=== PATIENT | female | born 2000 | race Caucasian/White ===

== ENCOUNTER 2022-07-26 13:19 | Emergency (ER) | payer SELFPAY ==
[2022-07-26 13:19] VITALS: BP 121/74; PULSE 103; RESP 16; TEMP 35.1; O2SAT 98; BMI 23.8
--- NOTE | 2022-07-26 14:05 | EDS_ITS ---
HPI History of Present Illness Chief Complaint: Headache Detail of Chief Complaint: Global headache Informant: patient Onset/Context/Timing Onset: Days (5 days ago) Context: Gradual Timing: Continuous and Waxes and wanes Quality -Headache: Positive for Dull and Throbbing Location: Global Current Severity: Moderate Maximum Severity: Severe Worsened by: Nothing specific Relieved by: Nothing Associated Symptoms/Injury Associated Symptoms: Positive for Nausea and - (She denies problems with coordination or balance. Point. She denies paresthesia, anesthesia or motor); Negative for Fever, Vomiting, Sore Throat, Sinus Pressure, Numbness, Tingling, Preceding Aura, Visual Changes, Blurred Vision, Photophobia or Visual Loss Injury - SHARP: Negative for Direct Trauma Narrative Narrative: Patient is a 22-year-old AB 0 female who is 21 weeks gestation. She presents with global headache. Area of most discomfort is occipital area. She denies double vision, blurred vision loss of vision. Denies rhinorrhea, congestion postnasal drainage. Denies sore throat. No trouble speech or swallowing. She denies photophobia sonophobia. She denies ringing in ears or decreased hearing. She does report nausea. She had no vomiting diarrhea. She had no neurologic symptoms. She has taken Tylenol with initial mild improveme nt. She does have a formal diagnosis of migraine headaches. She had no complications with first other than hyperemesis gravidarum in the first trimester. Prior similar symptoms: No Recent Illness/Hospitalization: No PFSH PFSH Medical History no medical history no medical history Allergy/AdvReac Type Severity Reaction Status Date / Time No Known Allergies Allergy Verified 07/26/22 13:19 Social History (Updated 07/26/22 @ 14:[address] Ruperto Connell MD) household members: children Smoking Status: Never smoker details: Presently no alcohol use substance use type: does not use ROS ROS ED Constitutional Constitutional ED: Denies chills, fever(s), subjective, sweats or weight loss Eyes Eyes: Denies blurry vision, change in vision or diplopia ENT ENT ED: Denies ear pain, rhinorrhea or sore throat Cardiovascular Cardiovascular: Denies chest pain, orthopnea, palpitations or racing heartbeat Respiratory/Chest Respiratory/Chest: Denies cough, dyspnea, dyspnea on exertion or orthopnea Gastrointestinal Gastrointestinal: Reports nausea; Denies abdominal pain, constipation, diarrhea, melena or vomiting Genitourinary Genitourinary ED: Denies dysuria, hematuria or urinary frequency Musculoskeletal Musculoskeletal: Denies arthralgias, back pain, myalgias or neck pain Integumentary Denies abscess, Abrasions or rash Neurologic Neurologic: Reports headache(s); Denies paresthesias or weakness Psychiatric Psychiatric: Denies anxiety or depression Endocrine Endocrinology: Denies polydipsia, polyphagia or polyuria Hematologic/Lymphatic Hematologic/Lymphatic: Denies easy bleeding or easy bruising EXAM Physical Exam Const Vital Signs: 07/26/22 13:19 Temperature 95.2 F L Temperature Source Temporal Pulse Rate 103 H Respiratory Rate 16 Blood Pressure 121/74 H Blood Pressure Mean 89 Pulse Ox 98 Oxygen Delivery Method Room Air Positive well nourished and well developed General Appearance ED: well developed and NAD; Negative for pallor HEENT Reports normocephalic, TM's clear and moist mucous membranes HEENT Narrative: Nares patent. There is no drainage. Uvula midline. No deviation of protrusion. No erythema or exudate the posterior pharynx. Negative for tenderness, temporal artery tenderness or vesicular rash Face and Sinus: Negative for sinus tenderness Tympanic Membrane ED: Yes TM's clear Eyes PERRL and EOMs intact bilaterally Eyes Narrative: There is no nystagmus. There is no APD. Cup-to-disc ratio is normal. There is no papilledema. General Eye ED: Negative for pale conjunctiva or scleral icterus Neck no lymphadenopathy, supple, no meningeal signs and no JVD Resp normal respiratory effort and clear to auscultation bilaterally Cardio regular rate, regular rhythm, S1 normal heart sound, S2 normal heart sound and no murmurs GI non-tender and non-distended GI Narrative: years approxi-1 fingerbreadth above the umbilicus. Auscultation: normoactive bowel sounds Palpation: soft Back/Spine no CVA tenderness Extremity normal to inspection, full ROM and normal capillary refill General Extremety ED: Negative for edema or tenderness General Extremity: Negative for edema Neuro oriented x3, CN's II-XII intact bilaterally and no sensory deficits noted Neuro Narrative: DTR 1+ bicep, brachialis, tricep, patella and ankle. There is no clonus Babinski sign noted. Selina Coma Scale: document GCS findings Spontaneous Obeys Commands Oriented 15 Sensorium / Orientation: awake and alert Coordination / Balance: rchpcd-is-arnn test normal Speech: speech normal Gait (Neuro): normal gait Motor Exam: strength 5/5 throughout Psych mental status grossly normal Skin General Skin Exam: elasticity normal and turgor normal; Negative for jaundice or pallor Lesions: no lesions Rashes: no rashes MDM MDM MDM Narrative Medical decision making narrative: Since patient does not have hyperreflexia pressure is normal there is no concern at this point for -induced hypertension or preeclampsia. Suspect this is a atypical possible vascular headache. She was medicated with Benadryl and Reglan. If there is no improvement since she is in her second trimester will treat with Toradol. Trolled Toradol is not indicated in the third trimester. I was informed by nursing staff at 1455 the patient would like to go home. Patient was reassessed at 1505. She feels markedly better. Plan is to discharge to home with appropriate home-going instructions and follow-up. Discharge Plan Triage Chief Complaint: Headache ED Provider: Ruperto Connell Dx/Rx/DC Orders Clinical Impression: Intractable migraine without aura and with status migrainosus, Second trimester Stand Alone Forms: ED Work / School Excuse Primary Care Provider: Care Physician,No Primary Referrals: Darlene Day [Non-Staff] - 1 Week Care Physician,No Primary [Primary Care Provider] - Disposition Disposition: Home, Self Care
[2022-07-26] MEDS: DiphenhydrAMINE 50 MG/ML Syringe 25 MG IV (14:17)
[2022-07-26] MEDS: Metoclopramide 10 MG/2 ML Vial IV (14:17)
[2022-07-26 15:16] VITALS: BP 95/62; PULSE 95; RESP 16; O2SAT 98
== END 2022-07-26 15:17 | disposition home or self-care (01) ==
PROVIDERS: Emergency Provider Emergency Medicine; Visit Provider Emergency Medicine
DX: O99.352 Diseases of the nervous system complicating pregnancy, second trimester (principal); G43.011 Migraine without aura, intractable, with status migrainosus; Z3A.21 21 weeks gestation of pregnancy
CPT/HCPCS: 96374; 96375; 99283; A4216

== ENCOUNTER 2022-12-02 09:45 | Inpatient (IN) | payer MEDICAID, SELFPAY ==
--- NOTE | 2022-11-28 13:55 | HP.PCM_ITS ---
History and Physical Date of Admission: 12/02/22 HPI: The patient is a 22 year old female presenting for pre-operative visit. She is scheduled for , for previous c/s on 12/09/22. Procedure discussed along with risks, benefits and complications. Other alternatives discussed for management. Consent form signed? Yes. ? ? PAST MEDICAL HISTORY PAST MEDICAL HISTORY Diagnosis Date ? Chlamydia ? ? ? PAST SURGICAL HISTORY PAST SURGICAL HISTORY Procedure Laterality Date ? SECTION HX ? 10/11/2019 ? ? ? CURRENT MEDICATIONS Current Outpatient Medications Medication Sig Dispense Refill ? iron sucrose (VENOFER) 200 mg iron/10 mL soln injection Inject 10 mL intravenously as directed for 3 doses. 10 mL 2 ? ferrous sulfate (IRON ORAL) Take by mouth. ? ? ? PNV no.95/ferrous fum/folic ac ( ORAL) Take by mouth. ? ? ? Current Facility-Administered Medications Medication Dose Route Frequency Provider Last Rate Last Admin ? NaCl (PF) 0.9% 10-20 mL injection 10-20 mL INTRAVENOUS PRN Deandre Guerrero MD ? ? ALLERGIES: Patient has no known allergies. ? PERSONAL HISTORY: SOCIAL HISTORY Social History ? Tobacco Use ? Smoking status: Never ? Smokeless tobacco: Never Vaping Use ? Vaping Use: Never used Substance Use Topics ? Alcohol use: Not Currently ? Drug use: Never ? FAMILY HISTORY: FAMILY HISTORY FAMILY HISTORY Adopted: Yes Problem Relation Age of Onset ? Autism Brother ? ? Autism Brother ? ? ? REVIEW OF SYMPTOMS: GENERAL: denies fevers or chills ENDOCRINOLOGY: has not been on steroids Cardiology : denies palpitations or chest pain Respiratory: denies SOB or cough Hematology: denies history of prolonged bleeding or easy bruising or VTE Allergy: Denies history of personal or family history of allergy to anesthesia ? PHYSICAL EXAMINATION: ? VITALS: Blood pressure 106/62, pulse 100, resp. rate 16, weight 153 lb (69.4 kg), last menstrual period 02/27/2022, SpO2 99 %. ? GENERAL: The patient is well nourished, well hydrated in no acute distress. , The patient is oriented to time, place, and person. NECK: Supple. No lynphadenopathy, normal thyroid, no thyromegaly. LUNGS: Clear to auscultation bilaterally. no wheezes, rhonchi or rales HEART: Regular rate and rhythm, Normal heart sounds, and No murmurs or gallops abd- soft, nontender, gravid ? IMPRESSION: Estimated Date of Delivery: 12/04/22 w/ previous c/s ? PLAN: The risks/benefits/alternatives and personal involved for the planned c- section were reviewed with the patient. Her questions were answered to her satisfaction and she desires to proceed. Consent was signed. I reviewed with her postop instructions and expectations. ? ? I have reviewed and updated past medical and surgical history, medications and allergies Assessment & Plan Assessment/Plan (1) 39 weeks gestation of : (2) Previous delivery affecting :
[2022-12-02] VITALS (13 sets, daily range): BP systolic 83–131; BP diastolic 46–60; PULSE 45–74; RESP 12–17; TEMP 35.6–36.4; O2SAT 63–100; BMI 28.0
[2022-12-02] MEDS: Lactated Ringers 1,000 ML 999 ML IV (10:20)
[2022-12-02 10:33] LABS: Absolute Lymphocyte Count 1.42 X10^3/uL (0.83-4.51); Absolute Neutrophil Count 5.2 X10^3/uL (2.0-7.7); Basophil# 0.05 X10^3/uL; Basophil% 0.7 % (0-1); Eosinophil# 0.06 X10^3/uL; Eosinophils% 0.8 % (0-5); Hematocrit 35.7 % (37-47); Hemoglobin 11.3 g/dL (12.0-15.0); Lymphocyte # 1.42 X10^3/ul (0.83-4.51); Mean Corp Hgb Conc 31.7 g/dL (32-36); Mean Corpuscular Hgb 27.6 pg (27.0-32.0); Mean Corpuscular Volume 87.3 fL (81-99); Monocyte# 0.33 X10^3/uL; Monocyte% 4.6 % (0-10); NRBC Flagged by Analyzer 0 % (0-5); Neutrophil # 5.19 X10^3/uL (2.7-7.7); Neutrophil % 73.1 % (47-70); Platelet Count 185 K/mm3 (150-450); RBC Distribution Width CV 16.5 % (11.6-14.6); RBC Distribution Width SD 51.8 fl (35.1-43.9); Red Blood Count 4.09 M/mm3 (4.2-5.4); White Blood Count 7.1 K/mm3 (4.4-11.0)
[2022-12-02] MEDS: Acetaminophen 500 MG Tablet 1000 MG PO ×3 (10:33→23:45)
[2022-12-02] MEDS: Lactated Ringers 1,000 ML 150 ML IV (11:21)
--- NOTE | 2022-12-02 14:27 | NURSING ---
OOS Pt has been made aware of schedule change in time for section x2. originally was told that it would be around 0288-7155 and then was moved to 1545. Dr Gan aware.
[2022-12-02] MEDS: Sodium Citrate/Citric Acid 30 ML UDC PO (15:40)
[2022-12-02] MEDS: Cefazolin 2 GM in 0.9% Normal Saline 100 ML IV (15:43)
--- NOTE | 2022-12-02 16:30 | OP.PCM_ITS ---
Assessment & Plan (1) delivery delivered: (2) Single live : Maternal Data Information Final JOSELYN: 12/04/22 Gestational age: 39 5/7 Details Operative Information Date of Procedure: 12/02/22 Pre-Operative Diagnosis: previous c/s Post-Operative Diagnosis: same Indications for : Repeat Elective Classification: Scheduled Procedure Type: low transverse supervisor rough end #1: [place] Type of Anesthesia: Spinal Anesthesiologist: Nicola Del Rio Special Medications: duramorph Antibiotic Given: Ancef 2 grams IV x1 Drain: Burger to straight drain Estimated Blood Loss: 800 Fluids Replaced: 900 Procedure Start Time: 16:01 Procedure Stop Time: 16:28 Time of Delivery: 16:03 Findings Description of Procedure: The patient was taken to the operating room. She was prepped and draped in the dorsal supine position with a leftward tilt. A Pfannenstiel skin incision was made through her previously existing suprapubic abdominal scar and was carried through to underlying layer fascia with the scalpel. The fascia was incised incised in the midline and extended laterally with the Hernandez scissors. The fascia was dissected off the rectus muscles with blunt and sharp dissection. The rectus muscles were in the midline and the peritoneum was entered bluntly. The peritoneal incision was stretched and the bladder blade was placed. There was a dense adhesion of the omentum to the left side of the uterus that was taken down with the Bovie. There was another adhesion on the right side of the omentum to the sidewall that was clamped with Maggi clamps, cut and suture-ligated. Pedicles were hemostatic. The uterine incision was made in a low transverse fashion with the scalpel and extended superiorly and inferiorly with blunt dissection. The amniotic membranes were ruptured bluntly and clear amniotic fluid returned. The 's head was brought to the incision in the flexed position and delivered without difficulty. The remainder of the infant was delivered with gentle traction and fundal pressure in the standard fashion. The mouth and nares were bulb suctioned. The cord was clamped and cut as the infant was stimulated. Cord clamping was delayed. The was handed off to the waiting nursing staff. The placenta was delivered with fundal massage and gentle traction in the s tandard fashion. The uterus was exteriorized and cleared of all clots and debris. The cervix was dilated with a ring forcep. The uterine incision was closed with #1 Vicryl in a running locked fashion. A second layer of the same suture was used in an imbricating fashion. 2 inmjut-wi-zsego sutures were needed 1 in the midline and one to the left side of the incision to control some bleeding from some sinuses. The incision was examined and was found to be hemostatic. The uterus was placed back into the peritoneal cavity and hemostasis was again confirmed. Some Biju was placed over the incision. The rectus muscles were examined and any bleeding was Bovie cauterized. The parietal peritoneum and rectus muscles were closed en bloc with an 0 Vicryl running suture. Some Biju was placed over the rectus muscle. The rectus fascia was examined and any bleeding was Bovie cauterized and the rectus fascia was closed with 1 Vicryl suture in a running standard fashion. The subcutaneous tissue was examining and any bleeding was Bovie cauterized. The subcutaneous tissue was reapproximated with 3-0 Vicryl suture. The skin was closed in a subcuticular fashion with Monocryl suture. I performed the entire procedure with assistance. All sponge, lap, and needle counts were correct. The patient was taken to her room for recovery in a stable condition. Presentation: Positive for Vertex Amniotic Membrane Rupture Type: Artificial Amniotic Fluid Description: Clear Placental Delivery Description: Expressed Placenta Disposition: [facility] Cord Vessel Description: 3 Vessels Cord Entanglement: None Nuchal Cord Compression: Without compression Infant A Gender: Male (Julio) (1 minute): 8 (5 minute): 9 Delayed Cord Clamping: Yes Complications Complications: none
[2022-12-02] MEDS: Oxytocin 15 Units/NS 250ml 15 UNITS/250 ML IV.SOLN 83 UNITS IV (16:47)
[2022-12-02] MEDS: Ketorolac 30 MG/ML Syringe IV ×2 (17:20→23:45)
[2022-12-02] MEDS: Lactated Ringers 1,000 ML 100 ML IV (20:05)
[2022-12-03] VITALS (7 sets, daily range): BP systolic 100–120; BP diastolic 53–71; PULSE 49–61; RESP 16–17; TEMP 35.9–36.7; O2SAT 97–100
[2022-12-03 04:46] LABS: Hematocrit 31.3 % (37-47); Hemoglobin 9.8 g/dL (12.0-15.0); Mean Corp Hgb Conc 31.3 g/dL (32-36); Mean Corpuscular Hgb 27.7 pg (27.0-32.0); Mean Corpuscular Volume 88.4 fL (81-99); Platelet Count 182 K/mm3 (150-450); RBC Distribution Width CV 16.5 % (11.6-14.6); RBC Distribution Width SD 53.4 fl (35.1-43.9); Red Blood Count 3.54 M/mm3 (4.2-5.4); White Blood Count 10.1 K/mm3 (4.4-11.0)
[2022-12-03] MEDS: 0.9% Saline Lock 10 ML Syringe IV ×2 (05:41→12:30)
[2022-12-03] MEDS: Acetaminophen 500 MG Tablet 1000 MG PO ×3 (05:41→17:27)
[2022-12-03] MEDS: Ketorolac 30 MG/ML Syringe IV ×2 (05:42→12:29)
--- NOTE | 2022-12-03 07:48 | PN.OBGYN_ITS ---
Subjective Subjective Pain well controlled. Average lochia. No nausea or vomiting. Tolerating regular diet. Ambulating without difficulty. No chest pain or shortness of breath. Objective Data Objective Data Vital Signs: Vital Signs Temp Pulse Resp BP Pulse Ox O2 Del Method 96.7 F L 54 L 16 108/57 L 98 Room Air 12/03/22 04:18 12/03/22 05:40 12/03/22 05:40 12/03/22 04:18 12/03/22 05:40 12/03/22 05:40 Oxygen Delivery Method Room Air Weight: 68.4 kg Body Mass Index (BMI) 28.0 Intake & Output: Intake and Output for Last 24 Hours 12/01/22 12/02/22 12/03/22 23:59 23:59 23:59 Intake Total 2067.5 / 2067.5 1000 / 1000 Output Total 1050 / 1050 1050 / 1050 Balance 1017.5 / 1017.5 -50 / -50 Lab / Micro Data Result Diagrams: 12/03/22 04:25 Labs: Laboratory Results - last 24 hr 12/02/22 10:20: WBC 7.1, RBC 4.09 L, Hgb 11.3 L, Hct 35.7 L, MCV 87.3, MCH 27.6, MCHC 31.7 L, RDW Std Deviation 51.8 H, RDW Coeff of Sarwat 16.5 H, Plt Count 185, MPV 12.0, Immature Gran % (Auto) 0.800, Neut % (Auto) 73.1 H, Lymph % (Auto) 20.0, [place] % (Auto) 4.6, Eos % (Auto) 0.8, Baso % (Auto) 0.7, Absolute Neuts ( auto) 5.2, Absolute Lymphs (auto) 1.42, Nucleated RBC % 0 12/02/22 10:20: Blood Type AB POSITIVE, Antibody Screen NEGATIVE 12/03/22 04:25: WBC 10.1, RBC 3.54 L, Hgb 9.8 L, Hct 31.3 L, MCV 88.4, MCH 27.7, MCHC 31.3 L, RDW Std Deviation 53.4 H, RDW Coeff of [place]wat 16.5 H, Plt Count 182, MPV 12.0 Physical Exam Const alert General Appearance: cooperative GI GI Narrative: soft, moderate distention, fundus firm, appropriately tender. Abdominal bandage clean dry and intact Assessment & Plan (1) delivery delivered: PLAN: 1 status post repeat section. Patient and are doing well. Patient desires discharge home later today. Mild acute blood loss anemia appropriate for blood loss after surgery. Repeat CBC at noon.
--- NOTE | 2022-12-03 07:50 | DS.PCM_ITS ---
Providers Date of Admission: 12/02/22 Primary Care Physician: No Primary Care Phys Reason For Visit: REPEAT C SECTION Diagnosis Discharge Diagnosis (1) delivery delivered: Status: Acute Code(s): O82 - Encounter for delivery without indication Plan: 1 status post repeat section. Patient and are doing well. Patient desires discharge home later today. Mild acute blood loss anemia appropriate for blood loss after surgery. Repeat CBC at noon. Medications at Discharge Home Medications ferrous sulfate 325 mg (65 mg iron) tablet (iron) 325 mg PO DAILY anemia 12/02/22 vits,calcium no.78-iron fumarate-folic acid 29 mg-1 mg tablet (Prenatabs FA) 1 tab PO DAILY 12/02/22 ibuprofen 600 mg tablet 600 mg PO Q6H PRN Pain 30 days #60 TABLETS 12/03/22 oxycodone 5 mg tablet 5 mg PO Q6H PRN PRN severe pain 5 days #6 TABLETS 12/03/22 Hospital Course Operations - (Repeat section) Summary of Care Provided Hospital Course: 22-year-old female admitted at 39-5/7 weeks for repeat section. This was performed without difficulty. By post operative day #1 she was ambulating, urinating tolerating regular diet and desired discharge home with routine instructions and prescriptions. Weight / BMI Weight Weight: 68.4 kg Body Mass Index (BMI) 28.0 ABG / Lab / Microbiology Data Result Diagrams: 12/03/22 04:25 Laboratory: Laboratory Results - last 24 hr 12/02/22 10:20: WBC 7.1, RBC 4.09 L, Hgb 11.3 L, Hct 35.7 L, MCV 87.3, MCH 27.6, MCHC 31.7 L, RDW Std Deviation 51.8 H, RDW Coeff of [place]wat 16.5 H, Plt Count 185, MPV 12.0, Immature Gran % (Auto) 0.800, Neut % (Auto) 73.1 H, Lymph % (Auto) 20.0, [place] % (Auto) 4.6, Eos % (Auto) 0.8, Baso % (Auto) 0.7, Absolute Neuts (auto) 5.2, Absolute Lymphs (auto) 1.42, Nucleated RBC % 0 12/02/22 10:20: Blood Type AB POSITIVE, Antibody Screen NEGATIVE 12/03/22 04:25: WBC 10.1, RBC 3.54 L, Hgb 9.8 L, Hct 31.3 L, MCV 88.4, MCH 27.7, MCHC 31.3 L, RDW Std Deviation 53.4 H, RDW Coeff of [place]wat 16.5 H, Plt Count 182, MPV 12.0 Meaningful Use Info Meaningful Use Diagnoses (Choose all that apply): None applicable Discharge Plan Admission Admit Date/Time: 12/02/22 09:45 Primary Reason for Your Visit: delivery Attending Provider: Cyn Gan Primary Care Provider: Sharmin PhysicianYumiko Primary Discharge Orders/Prescriptions Prescriptions: New ibuprofen [ibuprofen] 600 MG tablet 600 mg PO Q6H PRN (Reason: Pain) 30 Days Qty: 60 1RF oxycodone 5 MG tablet 5 mg PO Q6H PRN PRN (Reason: severe pain) 5 Days Qty: 6 0RF Continued ferrous sulfate [iron] 325 mg (65 mg iron) Tablet 325 mg PO DAILY Prenatabs FA 29-1 mg Tablet 1 tab PO DAILY Referrals / Follow Up: Care Physician,No Primary [Primary Care Provider] - Disposition Disposition (needs filled in before D/C Order can be placed): Home, Self Care
[2022-12-03] MEDS: Senna/Docusate Sodium 1 Tablet PO (12:29)
[2022-12-03] MEDS: Ibuprofen 600 MG Tablet PO (17:27)
[2022-12-03] MEDS: FLU VACC QS2022-23(6MOS UP)/PF 60 MCG/0.5 ML SYRINGE IM (17:46)
[2022-12-03 18:48] LABS: Hematocrit 31.5 % (37-47); Hemoglobin 10.1 g/dL (12.0-15.0); Mean Corp Hgb Conc 32.1 g/dL (32-36); Mean Corpuscular Hgb 28.4 pg (27.0-32.0); Mean Corpuscular Volume 88.5 fL (81-99); Mean Platelet Vol. 12.6 fl (6.2-12.0); Platelet Count 180 K/mm3 (150-450); RBC Distribution Width CV 16.9 % (11.6-14.6); RBC Distribution Width SD 54.3 fl (35.1-43.9); Red Blood Count 3.56 M/mm3 (4.2-5.4); White Blood Count 10.5 K/mm3 (4.4-11.0)
== END 2022-12-03 19:00 | disposition home or self-care (01) | DRG 540 ==
PROVIDERS: Admitting Provider Obstetrics & Gynecology; Visit Provider Obstetrics & Gynecology
PROC: 10D00Z1 Extraction of Products of Conception, Low, Open Approach (ICD-10-PCS; CPT 59514; principal; 2022-12-02 11:45)
DX: O34.211 Maternal care for low transverse scar from previous cesarean delivery (principal); D62 Acute posthemorrhagic anemia; Z37.0 Single live birth; O90.81 Anemia of the puerperium; Z3A.39 39 weeks gestation of pregnancy; Z23 Encounter for immunization
CPT/HCPCS: 59050; 85025; 85027; 86850; 86900; 86901; 99221; J7120; 90686; A4216; G0378

== ENCOUNTER 2024-08-23 09:43 | Inpatient (IN) | payer MEDICAID, SELFPAY ==
[2024-08-23] VITALS (16 sets, daily range): BP systolic 95–120; BP diastolic 61–80; PULSE 63–94; RESP 14–18; TEMP 36.1–36.6; O2SAT 97–100; BMI 31.4
--- NOTE | 2024-08-23 | FALS_PTH ---
PATHOLOGY RESULTS PATIENT: LISSA SAUNDERS LOC: [facility] U#:[id number] AGE/SX: 24/F ROOM: WP006 RE08/23/[address]: Dr. Deandre Guerrero MD : 2000 BED: 1 DIS: 08/24/2024 SPEC #: [id number] RECD: 08/24/24 10:35 STATUS: ALEX KARIE #: [id number] DAVID: 08/23/24 00:[address]: Deandre Guerrero DEPT: SURGICAL PATHOLOGY RECD BY: Lydia Huynh ENTERED: 08/24/24 10:36 SP TYPE: FALL TUBES OT DR: No Primary Care Phys Tissues: Fallopian tube Procedures: Surgery Specimen Level II HEADER OPERATION: Tubal ligation PRE-OP DIAGNOSIS: Sterilization TISSUE SUBMITTED: Bilateral fallopian tubes - stitch on right MICROSCOPIC DIAGNOSIS Bilateral fallopian tubes, salpingectomy: Bilateral fallopian tubes, no pathologic diagnosis. SJ: 08/25/2024 MICROSCOPIC DESCRIPTION Slides are reviewed. GROSS DESCRIPTION Received in fixative is one container labeled with the patient's name and designated bilateral fallopian tubes- stitch on right. The specimen consists of bilateral fallopian tubes. Right fallopian tube measures 3.5cm in length and 0.7cm in diameter and left fallopian tube measures 6.0 cm in length and 1.0 cm in diameter. Fimbrial end is noted only on the left fallopian tube. Right fallopian tube does not show any fimbrial end. Sections reveal unremarkable cut surfaces. Shank Stitcher sections are submitted in two cassettes. 1- right fallopian tube, 2- left fallopian tube/ SJ: 08/24/2024 TC:4 CPT: 66192 x2
[2024-08-23] MEDS: Acetaminophen 500 MG Tablet 1000 MG PO ×3 (10:13→21:33)
[2024-08-23 10:26] LABS: Absolute Lymphocyte Count 1.51 X10^3/uL (0.83-4.51); Absolute Neutrophil Count 5.9 X10^3/uL (2.0-7.7); Basophil# 0.04 X10^3/uL; Basophil% 0.5 % (0-1); Eosinophil# 0.09 X10^3/uL; Eosinophils% 1.1 % (0-5); Hematocrit 34.1 % (37-47); Hemoglobin 11.1 g/dL (12.0-15.0); Lymphocyte # 1.51 X10^3/ul (0.83-4.51); Lymphocyte % 18.7 % (19-41); Mean Corp Hgb Conc 32.6 g/dL (32-36); Mean Corpuscular Hgb 29.1 pg (27.0-32.0); Mean Corpuscular Volume 89.3 fL (81-99); Mean Platelet Vol. 12.2 fl (6.2-12.0); Monocyte# 0.49 X10^3/uL; Monocyte% 6.1 % (0-10); NRBC Flagged by Analyzer 0 % (0-5); Neutrophil # 5.87 X10^3/uL (2.7-7.7); Neutrophil % 72.9 % (47-70); Platelet Count 194 K/mm3 (150-450); RBC Distribution Width CV 13.1 % (11.6-14.6); RBC Distribution Width SD 42.5 fl (35.1-43.9); Red Blood Count 3.82 M/mm3 (4.2-5.4); White Blood Count 8.1 K/mm3 (4.4-11.0)
[2024-08-23] MEDS: Lactated Ringers 1,000 ML 999 ML IV (10:59)
[2024-08-23] MEDS: Lactated Ringers 1,000 ML 150 ML IV (11:00)
[2024-08-23 11:20] LABS: Syphilis Antibodies Non-reactive
[2024-08-23] MEDS: Sodium Citrate/Citric Acid 30 ML UDC PO (11:57)
[2024-08-23] MEDS: Cefazolin 2 GM in Syringe IV (11:58)
--- NOTE | 2024-08-23 12:17 | HP.PCM.OB_ITS ---
HPI - General General Date of Admission: 08/23/24 Date of Service: 08/23/24 HPI Narrative LISSA SAUNDERS, is a 24 F who presents for repeat . Maternal Data Information JOSELYN Calculator Estimated Delivery Date Method Current WG Current Estimate 08/26/24 Manual 39w 4d PFSH [facility] Medical History (Updated 08/23/24 @ 14:[address] Deandre Guerrero MD) Single live delivery delivered Chlamydia infection affecting Anxiety Home Medications ?Medication ?Instructions ?Recorded ?Last Taken ?Type vits,calcium no.78-iron 1 tab PO DAILY 12/02/22 08/22/24 History fumarate-folic acid 29 mg-1 mg tablet (Prenatabs FA) Allergy/AdvReac Type Severity Reaction Status Date / Time No Known Allergies Allergy Verified 08/23/24 10:37 Surgical History (Updated 08/23/24 @ 12:[address] Deandre Guerrero MD) Previous section Social History household members: children Smoking Status: Current every day smoker details: Presently no alcohol use substance use type: does not use History Elective abortions Hx Para 2 Spontaneous abortions Hx # Term Pregnancies Ectopic pregnancies Hx # Pregnancies Multiple births # of living children Vital Signs Vital Signs Vital Signs: 08/23/24 09:55 08/23/24 09:55 08/23/24 09:56 Temperature Temperature Source Pulse Rate 74 Respiratory Rate Blood Pressure 120/62 Blood Pressure Mean BP Systolic 120 BP Diastolic 62 Blood Pressure Source Blood Pressure Position Blood Pressure Location Pulse Ox 99 Oxygen Delivery Method 08/23/24 09:56 08/23/24 11:27 Temperature 97.0 F L Temperature Source Temporal Pulse Rate 71 71 Respiratory Rate 14 Blood Pressure 120/62 Blood Pressure Mean 81 BP Systolic BP Diastolic Blood Pressure Source Monitor Blood Pressure Position Semi-Fowlers Blood Pressure Location Right Arm Pulse Ox 99 Oxygen Delivery Method Room Air Weight Weight: 166 lb Body Mass Index (BMI) 31.4 Labs Labs Labs: Blood Type AB POSITIVE Antibody Screen NEGATIVE Hct 34.1 % (37-47) L Hgb 11.1 g/dL (12.0-15.0) L Syphilis Total Ab Non-reactive Assessment & Plan (1) 39 weeks gestation of : COMMENT: @ 39&4 (2) Previous section: (3) Request for sterilization: PLAN: Plan Admit to L&D MOD - proceed with repeat with bilateral salpingectomy. R/B/A discussed including risks of regret and failure. Informed consent signed. Routine care
--- NOTE | 2024-08-23 14:21 | PCM.OPRPT ---
Report of Operation Date of Procedure: 08/23/24 Pre-Operative Diagnosis: Intraoperative cystotomy Post-Operative Diagnosis: Same Surgery/Procedure Performed:: Repair cystotomy, cystoscopy with bilateral ureteral catheterization Surgeon: Katrin Montes De Oca Type of Anesthesia: Spinal Description of Procedure: The patient is a 24-year-old female undergoing a repeat section for delivery of a baby when the bladder was inadvertently lacerated at the dome. Dr. Guerrero called me in for evaluation and management. At this time the bladder was already mobilized away from the uterus. The entire laceration was easily identifiable at the area of the dome was approximately 6 cm in length. The ureteral orifices were deep to the laceration and were felt to be uninvolved at initial evaluation. The laceration was isolated and closed in a 3 layer repair with 3-0 chromic closure of the mucosa followed by 3-0 Vicryl for the detrusor layer and finally 2-0 Vicryl imbricated layer of the serosa. After closure of the detrusor layer, the bladder was backfilled using the Burger catheter with saline stained with methylene blue. The closure appeared to be watertight with no evidence of extravasation of fluid. At this time the bladder was once again emptied. She was placed into dorsolithotomy position and the Burger catheter was removed and she was prepped and draped below. The cystoscope was inserted through the urethra under direct visualization into the urinary bladder. There is no hemorrhage and the bladder was holding fluid without evidence of leak. The laceration was visible and closed at the dome. First the left ureteral orifice was gently intubated with a 5 Burkinan whistle-tip catheter and gently advanced to 20 cm without evidence of injury or obstruction. This process was repeated on the patient's right side with the same findings. At this time the cystoscope was removed and a fresh Burger catheter was inserted to straight drain with 10 cc in the balloon. The patient was then turned back over to Dr. Guerrero for closure of the abdomen. There were no complications during the procedure. Grafts/Implants Used: None Complications None Admit VTE Documentation VTE Present on Admission: Yes VTE Mechan Device Prophylaxis: SCD's VTE Pharm Prophylaxis ordered?: No Reason prophylaxis not ordered:: Treatment Not Indicated
--- NOTE | 2024-08-23 14:57 | EX.PCM.OBRPT ---
Maternal Data Information JOSELYN Calculator Estimated Delivery Date Method Current WG Current Estimate 08/26/24 Manual 39w 4d Details Operative Information Date of Procedure: 08/23/24 Pre-Operative Diagnosis: (1) Prior section (2) Sterilization request Post-Operative Diagnosis: Same Indications for : Repeat Elective and Desires elective sterilization Indications Narrative: The patient was taken to the operating room where spinal anesthesia was placed & found to be adequate. She was prepped and draped in the dorsal supine position with a leftward tilt. A Pfannenstiel skin incision was made approximately 2 cm above the symphysis pubis and carried through to the underlying fascia with the scalpel. The fascia was incised incised in the midline and extended laterally with the Hernandez scissors. The rectus muscles were in the midline and the peritoneum was entered carefully and bluntly. The peritoneal incision was stretched and the bladder blade was inserted. Multiple adhesions of bladder peritoneum were carefully taken down from the uterus using the metzenbaum scissors. Then the remainder of the vesicouterine peritoneum was tented up, incised & then bladder flap created gently. The uterine incision was then made in a low transverse fashion with the scalpel and extended superiorly and inferiorly with blunt dissection. The infant's head was brought to the incision in the flexed position and delivered without difficulty. The head was gently guided to allow delivery of the anterior and posterior shoulders. The body then delivered with fundal pressure in the standard fashion. The 3VC cord was clamped and cut in delayed fashion. The infant was handed off to the waiting general pediatrician. The placenta was delivered with fundal massage and gentle traction in the standard fashion. The uterus was exteriorized and cleared of clots and debris. The uterine incision was closed with #1 Vicryl suture in a running locked fashion. Bloody urine noted. The bladder was examined and bladder injury noted. The bladder injury was distant from site of uterine incision and bladder flap. It appeared that the bladder injury was likely a result of the poor tissue quality of the scar tissue and likely occurred from gentle traction. Requested nursing staff contact urology. called and stated would come to perform the bladder repair. Attention turned to the fallopian tubes. The right fallopian tube was grasped, cauterized and ligated using the ligasure. Then the left fallopian tube was grasped, cauterized and ligated using the ligasure. After additional cauterization on the right excision site excellent hemostasis of both tubal sites was noted. The uterine incision was again examined and was found to be hemostatic. The uterus was returned to the abdominal cavity. The tubal excision sites were again examined and noted to be hemostatic. arrived to perform the bladder repair & cystoscopy. Please see her operative report. Biju was placed over the uterine incision as some areas were denuded (but hemostatic). The rectus muscle was examined and any bleeding was Bovie cauterized. The fascia was closed with PDS suture in a running standard fashion. The subcutaneous tissue was examining and any bleeding was Bovie cauterized. The subcutaneous tissue was reapproximated with interrupted sutures. The skin was closed in a subcuticular fashion by the SHOP WELDER while I was present in the labor & delivery unit. The remainder of the procedure was performed by me with assistance. All sponge, lap, and needle counts were correct. The patient was taken to her room for recovery in a stable condition. Classification: Scheduled Procedure Type: low transverse (with bilateral salpingectomy; bladder repair by ) java golden gate developer #1: Van Hunt java golden gate developer #2: Katrin Montes De Oca Type of Anesthesia: Spinal Antibiotic Given: Ancef 2 grams IV x1 Drain: Burger to straight drain Estimated Blood Loss: 900ml Fluids Replaced: 1100ml Procedure Start Time: 12:30 Procedure Stop Time: 15:00 Findings Description of Procedure: Normal maternal uterus and adnexa Presentation: Positive for Vertex Amniotic Membrane Rupture Type: Artificial Amniotic Fluid Description: Clear Placental Delivery Description: Expressed Placenta Disposition: [facility] Specimen(s) Sent to Pathology: bilateral fallopian tubes Cord Vessel Description: 3 Vessels Cord Entanglement: Around neck x 1, loose Nuchal Cord Compression: Without compression Infant A Gender: Male (Blanco; weight = 3560g) (1 minute): 8 (5 minute): 9 Delayed Cord Clamping: Yes
[2024-08-23] MEDS: Oxytocin 15 Units/NS 250ml 15 UNITS/250 ML IV.SOLN 83 UNITS IV (15:30)
[2024-08-23 16:15] LABS: Pathology Specimen OB SEE PATHOLOGY REPORT
[2024-08-23 16:55] LABS: Amphetamine Urine VISTA NEGATIVE (<1000 ng/mL); Barbiturate Urine VISTA NEGATIVE (< 200 ng/mL); Benzodiazepine Urine VISTA NEGATIVE (< 200 ng/mL); Cocaine Urine VISTA NEGATIVE (< 300 ng/mL); Ecstacy Urine VISTA NEGATIVE (< 500 ng/mL); Methadone Urine VISTA NEGATIVE (< 300 ng/mL); PCP Urine VISTA NEGATIVE (< 25 ng/mL); THC Urine VISTA POSITIVE (< 50 ng/mL); Vista UDS pH Range 5
--- NOTE | 2024-08-23 20:45 | NURSING ---
This RN documented AT 2044 in DEC that Lactated Ringers infusion was resumed at 100ml/hr, previous RN AWeiblayne stated fluids were continued due to poor output, documentation did not show time fluids were restarted. This RN charted fluid rate based on current assessment.
[2024-08-23] MEDS: Cephalexin 500 MG Capsule PO (21:32)
[2024-08-23] MEDS: Ketorolac 30 MG/ML Syringe IV (21:32)
[2024-08-24 01:25] VITALS: PULSE 63; RESP 16; O2SAT 96
[2024-08-24] MEDS: Enoxaparin 40 MG/0.4 ML Syringe SC (02:47)
[2024-08-24] MEDS: Ketorolac 30 MG/ML Syringe IV ×2 (02:47→09:07)
[2024-08-24] MEDS: 0.9% Saline Lock 10 ML Syringe IV ×2 (02:47→09:13)
[2024-08-24] MEDS: Acetaminophen 500 MG Tablet 1000 MG PO ×3 (04:19→15:55)
[2024-08-24 04:30] VITALS: BP 111/60; PULSE 71; RESP 14; TEMP 36.6; O2SAT 97
[2024-08-24] MEDS: Cephalexin 500 MG Capsule PO ×2 (05:43→13:58)
[2024-08-24 05:56] LABS: Hematocrit 32.3 % (37-47); Hemoglobin 10.4 g/dL (12.0-15.0); Mean Corp Hgb Conc 32.2 g/dL (32-36); Mean Corpuscular Hgb 28.7 pg (27.0-32.0); Mean Corpuscular Volume 89.2 fL (81-99); Mean Platelet Vol. 12.4 fl (6.2-12.0); Platelet Count 180 K/mm3 (150-450); RBC Distribution Width CV 13.2 % (11.6-14.6); RBC Distribution Width SD 43.2 fl (35.1-43.9); Red Blood Count 3.62 M/mm3 (4.2-5.4)
--- NOTE | 2024-08-24 08:25 | PN.OBGYN_ITS ---
Subjective Subjective Doing well. Ambulating without difficulty. Mild lochia. Breast feeding. Burger in place for 7 days postop. Objective Data Objective Data Vital Signs: Vital Signs Temp Pulse Resp BP Pulse Ox O2 Del Method 97.8 F 71 14 111/60 97 Room Air 08/24/24 04:30 08/24/24 04:30 08/24/24 04:30 08/24/24 04:30 08/24/24 04:30 08/24/24 04:30 Oxygen Delivery Method Room Air Weight: 75.296 kg Body Mass Index (BMI) 31.4 Intake & Output: Intake and Output for Last 24 Hours 08/22/24 08/23/24 08/24/24 23:59 23:59 23:59 Intake Total 2004 325 / 325 Output Total 2470 / 2470 900 / 900 Balance -465 / -465 -575 / -575 Lab / Micro Data 08/24/24 05:48 Labs: Laboratory Results - last 24 hr 08/23/24 10:00: WBC 8.1, RBC 3.82 L, Hgb 11.1 L, Hct 34.1 L, MCV 89.3, MCH 29.1, MCHC 32.6, RDW Std Deviation 42.5, RDW Coeff of Sarwta 13.1, Plt Count 194, MPV 12.2 H, Immature Gran % (Auto) 0.700, Neut % (Auto) 72.9 H, Lymph % (Auto) 18.7 L, [place] % (Auto) 6.1, Eos % (Auto) 1.1, Baso % (Auto) 0.5, Absolute Neuts (auto) 5.9, Absolute Lymphs (auto) 1.51, Nucleated RBC % 0, Syphilis Total Ab Non- reactive, Blood Type Cancelled, Antibody Screen Cancelled 08/23/24 10:30: Blood Type AB POSITIVE, Antibody Screen NEGATIVE 08/23/24 11:00: Urine Opiates Screen NEGATIVE, Urine Methadone Screen NEGATIVE, Ur Barbiturates Screen NEGATIVE, Ur Phencyclidine Scrn NEGATIVE, Ur Amphetamines Screen NEGATIVE, MDMA (Ecstasy) Screen NEGATIVE, U Benzodiazepines Scrn NEGATIVE, Urine Cocaine Screen NEGATIVE, U Cannabinoids Screen POSITIVE H, Ur Drug Screen Comment 08/24/24 05:48: WBC 8.0, RBC 3.62 L, Hgb 10.4 L, Hct 32.3 L, MCV 89.2, MCH 28.7, MCHC 32.2, RDW Std Deviation 43.2, RDW Coeff of Sarwat 13.2, Plt Count 180, MPV 12.4 H ROS Constitutional Constitutional: Denies fatigue, fever(s) or malaise Eyes Eyes: Denies change in vision ENT HEENT: Denies dizziness or headache(s) Cardiovascular Cardiovascular: Denies chest pain, dyspnea or lightheadedness Respiratory/Chest Respiratory/Chest: Denies cough or dyspnea Gastrointestinal Gastrointestinal: Denies change in bowel habits Genitourinary Genitourinary: Denies burning urination or genital lesions Integumentary Integumentary: Denies rash Neurologic Neurologic: Denies confusion, dizziness, headache(s), numbness or weakness Physical Exam Const alert General Appearance: cooperative GI GI Narrative: soft, moderate distention, fundus firm, appropriately tender. Abdominal bandage clean dry and intact Assessment & Plan (1) Request for sterilization: (2) Previous section: PLAN: Plan Burger to remain 7 days postop
[2024-08-24 09:14] VITALS: BP 105/58; PULSE 55; RESP 16; TEMP 35.9; O2SAT 98
[2024-08-24] MEDS: FLU VACC 2024-25(6MOS UP)/PF 45 MCG/0.5 ML SYRINGE IM (09:59)
[2024-08-24] MEDS: Senna/Docusate Sodium 1 Tablet PO (09:59)
[2024-08-24] MEDS: MEASLES,MUMPS,RUBELLA VACC/PF 0.5 ML SC (10:02)
[2024-08-24 12:16] VITALS: BP 108/68; PULSE 63; RESP 16; TEMP 36.1; O2SAT 99
[2024-08-24] MEDS: Ibuprofen 600 MG Tablet PO (15:00)
--- NOTE | 2024-08-24 15:30 | CASEMGMT ---
Social Work Assessment Labor and Delivery Unit Patient Address: [address] [place] [id number] Phone number: [phone] Date of Referral: 08.23.24 Time of Referral: 1111 Referred By: Dr. Deandre Guerrero Date of Intervention: 08.24.24 Time of Intervention: Approximately 9963-1380 Reason for Referral: THC use, Anxiety (not diagnosed) History obtained from: medical records and mother of baby (MOB) Anam Eugene; father of baby (FOB) Thomas Mccrary present for part of conversation. Household composition: Mother of baby, father of baby, MOB's [id number], and MOB/FOB's children. Home situation is reported to get house, and reported to see if adequate. Patient's parent/guardian status: LAURIE is a 24-year-old single female, involved with the FOB Thomas Mccrary who is 25 years old for over 5 years now. During private conversation with the MOB, LAURIE denied any type of domestic violence or safety concerns in this relationship. LAURIE and FOB now have 3 children together. Martin (born October 2019), Esther Mccrary (11.14.2022), and Chavez Mccrary (08.23.2024). Medical History: LAURIE is 3, para 2 now 3 after delivering winking. care started later at 14 weeks gestation. LAURIE reports and admits to some shock at initially was not certain her plans and intent for that . Patient reports after some consideration and time to adjust to an unexpected , LAURIE was accepting and excited to have the baby. infant, Chavez, was born via repeat weighing 7 pounds 14 ounces. Apgars 8 and 9 at 1 and 5 minutes respectively. Plan is for to follow with experimental display builder, Dr. Cain. Educational Status: 12th grade education for LAURIE. No reported concerns with reading, writing or learning comprehension. Financial Status: LAURIE was working at [employer] prior to delivery, but the plan will be to stay at home now the baby is born. 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 ROBERT was also working 2 jobs prior to this promotion. Infant Supplies: MOB and FOB reported to have all necessary infant supplies including a crib, bassinet, back and play, car seat, clothing, diapers and wipes. MOB reports to have a breast pump and plans to breast-feed the baby. Childcare/Caregiver(s): MOB and FOB will be primary caregivers. ROBERT's father who is home the family living in, is also available to provide help and support as needed. Transportation: MOB and FOB both drive and denies any concerns with transportation. Programs/Agencies Involved: MOB is active with job and family services for medical, and plans to reapply for food assistance now that the baby is warm. Active with WIC. Children Services/Legal Issues: No reported history of any children services as an adult. ROBERT reports to be on a diversion program from something years ago with his father, but is soon to get off of this in the next couple of months. No active or recent legal charges reported for either parent Behavioral Health Issues: Mental Health History: MOB reports history of anxiety and history of irritability. Denies ever having thoughts of suicide or wanting to harm anybody, but just tends to get a little bit more irritable than what is usual for herself. MOB reports that she is coming to learn the need for self-care and taking time to herself. No reports of any mental health concerns for the FOB. Substance Use History: ROBERT reports he is not able to use any type of substances due to the diversion program he has been on. MOB denies any alcohol usage during . Denies any illicit or prescription drug abuse. Does report to usage of marijuana during and used this to help with nausea and vomiting. 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 Denies ever having a medical card. Drug Screens: MOB and infant both positive for marijuana in their urine tox screens on 08/23/2024. Family/Social Stressors: Unexpected though MOB reports after time to process was excepting and is happy to have another baby. Support Systems: Primary support system is the FOB. MOB's family lives down in the [place] area. Depression/Shaken Baby/Safe Sleeping: Reviewed mood and anxiety disorders with MOB and FOB, risk factors and importance of seeking out help and support. Reviewed shaken baby prevention and safe sleeping. ASSESSMENT: Met with MOB and FOB together, introducing to self and social work role. Then met with the MOB briefly alone. MOB and FOB appeared comfortable and relaxed in each other's presence. FOB appeared excited about the baby, smiling and talking excitedly about having another child. Observed FOB to hold the baby and held the baby appropriately. MOB did acknowledge use of marijuana in the presence of the FOB and open discussion occurred. Discussed need for referral to children services due to substance exposure which may result in some follow-up. Educated to the Angeli Act in relation to need reporting infants who are substance exposed. Answered parents questions. Offered emotional support. MOB and FOB were receptive to a referral for early Headstart, for additional support. Provided written material and resources for [facility], mood and anxiety disorders, shaken baby prevention, and safe sleeping. Safe Plan of Care for related to substance use: Discussed safe plan of care for children should MOB choose to use marijuana in the future. MOB and FOB report marijuana is Outside in the shed and locked. Usage only occurs outside and not around the children. MOB reports either FOB or FOB's father is at home as well. Discussed recommendation of not providing breastmilk if marijuana use is present. MOB reports this that was discussed via the department, and MOB reports to this magazine writer belief she could abstain from marijuana while providing breastmilk. PLAN: MOB and infant to home when ready for discharge with written resources in place for community support adn depression and anxiety. Early Headstart Referral as well as [facility] referrals being made. -TARSHA Slade MSW *This note was generated with [employer] software. It may contain incorrect words, spelling, and punctuation that were not noted in review of the chart prior to signing*
[2024-08-24 16:07] VITALS: BP 109/71; PULSE 65; RESP 16; TEMP 36.2; O2SAT 96
--- NOTE | 2024-08-24 16:30 | CASEMGMT ---
Social Work Early Head Start referral form signed by mother of baby (MOB) and sent to [facility]. 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 Brief infant and maternal histories provided. No other services requested or indicated. Refer to prior social work note for details of social history. -TARSHA Slade
--- NOTE | 2024-08-24 17:07 | PCM.DC.SUM ---
Providers Date of Admission: 08/23/24 Date of Discharge: 08/24/24 Primary Care Physician: Yumiko Primary Care Phys Reason For Visit: REPEAT C SECTION Diagnosis Discharge Diagnosis (1) Request for sterilization: Status: Acute Code(s): Z30.2 - Encounter for sterilization (2) Previous section: Status: Acute Code(s): Z98.891 - History of uterine scar from previous surgery Plan Montgomery to remain 7 days postop Medications at Discharge Home Medications vits,calcium no.78-iron fumarate-folic acid 29 mg-1 mg tablet (Prenatabs FA) 1 tab PO DAILY 12/02/22 cephalexin 500 mg capsule 500 mg PO Q8 7 days #21 caps 08/24/24 ibuprofen 600 mg tablet 600 mg PO Q6H #30 tabs 08/24/24 Hospital Course Operations section (with tubal) Procedures None Summary of Care Provided Minutes Spent on Discharge: 20 Hospital Course: Repeat c/s with tubal. Bladder injury at time of delivery. Repaired by urology. Home with a montgomery intact. To follow up with urology in one week. Breast feeding Physical Exam Const alert General Appearance: cooperative GI GI Narrative: soft, moderate distention, fundus firm, appropriately tender. Abdominal bandage clean dry and intact Weight / BMI Weight Weight: 75.296 kg Body Mass Index (BMI) 31.4 ABG / Lab / Microbiology Data 08/24/24 05:48 Laboratory: Laboratory Results - last 24 hr 08/24/24 05:48: WBC 8.0, RBC 3.62 L, Hgb 10.4 L, Hct 32.3 L, MCV 89.2, MCH 28.7, MCHC 32.2, RDW Std Deviation 43.2, RDW Coeff of Sarwat 13.2, Plt Count 180, MPV 12.4 H D/C Instructions Discharge Diet: No restrictions May resume sexual activity in: 4-6 weeks Lifting Restrictions: 20 pounds Additional Activity Instructions: Nothing in the vagina for 4-6 weeks. You may return to work/school in 6 weeks. Call your doctor if your incision/area has: Continuous Slow Oozing, Sudden Increased Bleeding, Increased Pain/ Swelling, Increased Redness and Foul Smelling Discharge Call your doctor if you observe: Fever of 101 or Higher and Using more than 1 pad per hour (for 2 hours) Suture Line Care: Avoid Pulling/Pushing and Avoid Pinching/Bending Cleanse incision/area with: Keep Dressing Clean & Dry Catheter: Montgomery to leg bag Please Follow Up With: Cyn Gan MD When: Call to make an appointment for an incision check in 1-2 [phone]. You will need a post check in 6 weeks. Meaningful Use Info Meaningful Use Meaningful Use Diagnoses (Choose all that apply): None applicable Ischemic Stroke Statin Dosing Therapy Reference: STATIN DOSE THERAPY REFERENCE: * Patients > 75 years receive moderate or high dose statin therapy. * Patients 75 years or YOUNGER should receive HIGH intensity statin dose unless contraindicated. You will be required to document reason for non-treatment if statin daily dose does not meet guidelines. HIGH DOSE STATIN THERAPY DAILY Atorvastatin > than or = to 40 mg Rosuvastatin > than or = to 20 mg Amlodipine + Atorvastatin > than or = to 2.5/40 mg Ezetimibe + Simvastatin 10/80 mg Simvastatin 80mg Discharge Plan Admission Admit Date/Time: 08/23/24 09:43 Primary Reason for Your Visit: repeat c/s Attending Provider: Deandre Guerrero Primary Care Provider: Care Physician,Yumiko Primary Discharge Orders/Prescriptions Prescriptions: New cephalexin 500 mg Capsule 500 mg PO Q8 7 Days Qty: 21 0RF ibuprofen 600 mg Tablet 600 mg PO Q6H Qty: 30 0RF Continued Prenatabs FA 29-1 mg Tablet 1 tab PO DAILY Referrals / Follow Up: Care Physician,No Primary [Primary Care Provider] - Disposition Disposition (needs filled in before D/C Order can be placed): Home, Self Care
--- NOTE | 2024-08-24 18:33 | NURSING ---
Pt given detailed written/verbal instruction on catheter care. Pt instructed on how to switch to leg bag. Pt verbalized an understanding and denies further questions for this RN.
== END 2024-08-24 18:50 | disposition home or self-care (01) | DRG 539 ==
PROVIDERS: Admitting Provider Obstetrics & Gynecology; Referring Provider Obstetrics & Gynecology; Visit Provider Obstetrics & Gynecology
PROC: 10D00Z1 Extraction of Products of Conception, Low, Open Approach (ICD-10-PCS; CPT 59514; principal; 2024-08-23 11:45)
DX: O34.219 Maternal care for unspecified type scar from previous cesarean delivery (principal); F12.90 Cannabis use, unspecified, uncomplicated; O99.324 Drug use complicating childbirth; F17.200 Nicotine dependence, unspecified, uncomplicated; N99.71 Accidental puncture and laceration of a genitourinary system organ or structure during a genitourinary system procedure; O99.892 Other specified diseases and conditions complicating childbirth; Y65.8 Other specified misadventures during surgical and medical care; Y92.234 Operating room of hospital as the place of occurrence of the external cause; Z37.0 Single live birth; Z30.2 Encounter for sterilization; O99.334 Smoking (tobacco) complicating childbirth; O69.81X0 Labor and delivery complicated by cord around neck, without compression, not applicable or unspecified; O99.62 Diseases of the digestive system complicating childbirth; N73.6 Female pelvic peritoneal adhesions (postinfective); Z3A.39 39 weeks gestation of pregnancy; Z87.59 Personal history of other complications of pregnancy, childbirth and the puerperium; Z23 Encounter for immunization
CPT/HCPCS: 59025; 59050; 80307; 85025; 85027; 86780; 86850; 86900; 86901; 88302; 90656; 99221; J7120; A4216; C1758; G0378; J2405

== ENCOUNTER 2024-08-30 23:10 | Emergency (ER) | payer MEDICAID, SELFPAY ==
[2024-08-30 23:10] VITALS: BP 122/73; PULSE 54; RESP 18; TEMP 36.6; O2SAT 99; BMI 27.2
--- NOTE | 2024-08-30 23:41 | EDS_ITS ---
HPI History of Present Illness Chief Complaint: Wound Check Informant: patient Narrative Narrative: Patient is a 24-year-old female with no significant past medical history. She states that she recently gave by . She states she has been at home doing well and has been taking the antibiotics that were prescribed by the [facility]. This evening however when she took the dressing off of her incision she noticed there was some green discoloration and had concern for potential infection and therefore comes in for evaluation. [facility] Medical History (Updated 08/30/24 @ 23:[address] Julius Batista, DO) Single live delivery delivered Chlamydia infection affecting Anxiety Home Medications ?Medication ?Instructions ?Recorded ?Last Taken ?Type vits,calcium no.78-iron 1 tab PO DAILY 12/02/22 08/22/24 History fumarate-folic acid 29 mg-1 mg tablet (Prenatabs FA) cephalexin 500 mg capsule 500 mg PO Q8 7 days #21 caps 08/24/24 Unknown Rx cephalexin 500 mg capsule 500 mg PO Q8H 7 days #21 caps 08/24/24 Unknown Rx ibuprofen 600 mg tablet 600 mg PO Q6H #30 tabs 08/24/24 Unknown Rx Allergy/AdvReac Type Severity Reaction Status Date / Time No Known Allergies Allergy Verified 08/30/24 23:10 Surgical History Previous section Social History household members: children Smoking Status: Current every day smoker tobacco type: smokeless tobacco details: Presently no alcohol use substance use type: does not use ROS ROS ED Constitutional Constitutional ED: Denies chills or fever(s) ENT ENT ED: Denies sore throat Cardiovascular Cardiovascular: Denies chest pain Respiratory/Chest Respiratory/Chest: Denies cough or dyspnea Gastrointestinal Gastrointestinal: Reports abdominal pain; Denies diarrhea, nausea or vomiting Genitourinary Genitourinary ED: Denies dysuria Musculoskeletal Musculoskeletal: Denies myalgias Integumentary Reports other Details: Positive surgical incision/wound ; Denies rash Neurologic Neurologic: Denies headache(s) Hematologic/Lymphatic Hematologic/Lymphatic: Denies easy bleeding or easy bruising EXAM Physical Exam Const Vital Signs: 08/30/24 23:10 08/30/24 23:56 Temperature 98 F 98.1 F Temperature Source Temporal Pulse Rate 54 L 54 L Respiratory Rate 18 18 Blood Pressure 122/73 H 120/70 Blood Pressure Mean 89 86 Pulse Ox 99 99 Oxygen Delivery Method Room Air Positive well nourished and well developed General Appearance ED: well developed; Negative for pallor HEENT HEENT Narrative: Normocephalic atraumatic Eyes PERRL and EOMs intact bilaterally General Eye ED: Negative for pale conjunctiva or scleral icterus Neck supple Resp normal respiratory effort and clear to auscultation bilaterally Cardio regular rhythm Rate: bradycardia and other Other Details: Slightly bradycardic rate with regular rhythm No murmurs rubs or gallop GI non-distended and no masses GI Narrative: Abdomen is soft and nondistended with normal active bowel sounds. No voluntary guarding or rigidity or pulsatile mass. Patient has a horizontal scar along the lower portion of the abdomen/suprapubic region consistent with recent . There is slight serous discoloration along the right lateral portion of the wound without dehiscence. No surrounding erythema or warmth no lymphangitic streaking. Auscultation: normoactive bowel sounds Palpation: soft Extremity normal to inspection Neuro oriented x3, CN's II-XII intact bilaterally and no sensory deficits noted Sensorium / Orientation: alert Motor Exam: strength 5/5 throughout Psych Mood & Affect: anxious Skin no rashes or lesions noted Skin Narrative: Surgical wound along the abdomen as documented above General Skin Exam: Negative for jaundice or pallor MDM MDM MDM Narrative Medical decision making narrative: Patient arrived to ER with stable vitals but reported concern for potential postsurgical wound. On exam the wound appears clean dry and intact without obvious dehiscence. She does not have obvious findings of a secondary infection such as cellulitis or abscess and I do not palpate a seroma or hematoma. Therefore at this time the wound appears normal and without active discharge or signs of infection and stable vitals I do not feel there is need for imaging or laboratory studies and patient is otherwise safe for discharge. History & Record Review Discussion w/independent historian: Patient Discharge Plan Triage Chief Complaint: Wound Check ED Provider: Julius Batista Dx/Rx/DC Orders Clinical Impression: Encounter for post surgical wound check Instructions: ED Post Op Wound Check, General Prescriptions: No Action Prenatabs FA 29-1 mg Tablet 1 tab PO DAILY cephalexin 500 mg Capsule 500 mg PO Q8 7 Days Qty: 21 0RF ibuprofen 600 mg Tablet 600 mg PO Q6H Qty: 30 0RF cephalexin 500 mg capsule 500 mg PO Q8H 7 Days Qty: 21 0RF Primary Care Provider: Tyler Torres Referrals: Tyler Torres MD [Primary Care Provider] - Print Language: [place] Disposition Disposition: Home, Self Care Discharge Date/Time: 08/30/24 23:58
--- OUTSIDE RECORDS SUMMARY | 2024-08-30 23:46 | XMS RPT_ITS | CCD ---
Author Organization [facility] Care Team Providers Care Hand Binder Stripper Name Role Phone Unavailable Primary Care Provider Unavailabl e ADELAIDE, ARELY Referring Unavailable ARIE AKHTAR Attending Unavailable HERMILO, KARMON Referring Unavailable FLIP GALVAN Attending Unavailable DIANE CAMARGO Attending Unavailable TANIKA SALES Attending Unavail able DIANE CAMARGO Attending Unavailable HERMILO, KARDEMETRIUS Attending Unavailable ADELAIDE, ARELY Attending Unavailable TATI, ANAI Attending Unavailable TATI, ANAI Attending Unavailable ADELAIDE, ARELY Referring Unavailable HERMILO, KARMON Attending Unavailable HERMILO, KARMON Referring Unavailable ANAI BROWN Attending Unavailable HERMILO, KARMON Referring Unavailable HAURY, ANAI Attending Unavailable HERMILO, KARMON Referring Unavailable Unavailable Primary Care Provider Unavailabl e Medications Current Medications Medication Drug Class(es) Dates Sig (Normalized) Sig (Original) cephalexin 500 mg oral capsule (3 sources) Cephalosporin Antibacterial Start: 02-29-2024 End: 03-05-2024 take 1 capsule by mouth four times daily cephALEXin (KEFLEX) 500 mg capsule Take 1 capsule by mouth four times daily for 5 days. 20 capsule 0 02/29/2024 03/05/2024 Active ferrous sulfate (20 sources) ferrous sulfate (IRON ORAL) Take by mouth. 0 Active Comment on above: Take by mouth. PNV no.95/ferrous fum/folic ac ( ORAL) (20 sources) take 1 tablet by chan th once daily before mealtime PNV no.95/ferrous fum/folic ac ( ORAL) Take 1 tablet by mouth once daily. Active take 1 tablet by chan th once daily before mealtime PNV no.95/ferrous fum/folic ac ( ORAL) Take 1 tablet by mouth once daily. 0 Active PNV no.95/ferrou s fum/folic ac ( ORAL) Take by mouth. 0 Active Comment on above: Take by mouth. 5 ml sodium chloride 9 mg/ml injection (17 sources) Start: 10-21-2022 End: 04-19-2023 NaCl (PF) 0.9% 10-20 mL injection Completed/Discontinued Medications Medication Drug Class(es) Dates Sig (Normalized) Sig (Original) 10 ml iron sucrose 20 mg/ml injection (17 sources) Parenteral Iron Replacement Start: 10-21-2022 End: 01-20-2023 iron sucrose (VENOFER) 200 mg iron/10 mL soln injection Indications: Iron deficiency anemia, unspecified iron deficiency anemia type , Intestinal malabsorption, unspecified type Inject 10 mL intravenously as directed for 3 doses. 10 mL 2 10/21/2022 01/20/2023 Discontinued Comment on above: Inject 10 mL intrave nously as directed for 3 doses. norethindrone 0.35 mg oral tablet (2 sources) Start: 01-20-2023 End: 02-26-2024 take 1 tablet by mouth once daily Norethindrone, Contraceptive, (ORTHO MICRONOR) 0.35 mg tablet Take 1 tablet by mouth once daily. 28 tablet 3 01/20/2023 02/26/2024 Discontinued Comment on above: Take 1 tablet by chan once daily. Problems Active Problems Problem Classification Problem Date Documented Da te Episodic/Chronic Immunizations and screening for infectious disease (1 source) Vaccination needed; Translations: [Encounter for immunization] 06-02-2024 Episodic Other complications of (1 source) Anemia in mother complicating , childbirth AND/OR puerperium; Translations: [Anemia complicating , third trimester] Chronic Other complications of (17 sources) Urinary tract infection in ; Translations: [Unspecified infection of urinary tract in , unspecified trimester] Onset: 06-02-2024 06-02-2024 Episodic Other screening for suspected conditions (not mental disorders or infectious disease) (4 sources) Patient encounter status; Translations: [Encounter for other specified screening] 03-29-2024 Episodic Previous (1 source) Uterine scar from previous surgery in , childbirth and the puerperium; Translations: [Maternal care for low transverse scar from previous delivery] Episodic Residual codes; unclassified (3 sources) Gestation period, 22 weeks; Translations: [22 weeks gestation of ] Episodic Residual codes; unclassified (1 source) Gestation period, 26 weeks; Translations: [26 weeks gestation of ] Episodic Residual codes; unclassified (2 sources) Gestation period, 29 weeks; Translations: [29 weeks gestation of ] Episodic Residual codes; unclassified (2 sources) Gestation period, 31 weeks; Translations: [31 weeks gestation of ] Episodic Residual codes; unclassified (2 sources) Gestation period, 33 weeks; Translations: [33 weeks gestation of ] Episodic Residual codes; unclassified (1 source) Gestation period, 25 weeks; Translations: [25 weeks gestation of ] Episodic Residual codes; unclassified (1 source) Gestation period, 36 weeks; Translations: [36 weeks gestation of ] Episodic Residual codes; unclassified (3 sources) Gestation period, 37 weeks; Translations: [37 weeks gestation of ] Episodic Residual codes; unclassified (2 sources) Gestation period, 38 weeks; Translations: [38 weeks gestation of ] Episodic Residual codes; unclassified (1 source) Gestation period, 39 weeks; Translations: [39 weeks gestation of ] Episodic Residual codes; unclassified (1 source) Gestation period, 20 weeks; Translations: [20 weeks gestation of ] 03-29-2024 Episodic Residual codes; unclassified (1 source) Gestation period, 18 weeks; Translations: [18 weeks gestation of ] 03-29-2024 Episodic Residual codes; unclassified (2 sources) Gestation period, 27 weeks; Translations: [27 weeks gestation of ] 06-02-2024 Episodic Residual codes; unclassified (1 source) Gestation period, 35 weeks; Translations: [35 weeks gestation of ] 07-27-2024 Episodic Residual codes; unclassified (1 source) 22 weeks gestation of ; Translations: [22 weeks gestation of ] Onset: 06-02-2024 Episodic Unclassified (20 sources) [facility] Education - COMMON Onset: 02-26-2024 02-26-2024 Unclassified (20 sources) Education - [place] Onset: 02-26-2024 02-26-2024 Past or Other Problems Problem Classification Problem Date Documented Da te Episodic/Chronic Deficiency and other anemia (20 sources) Iron deficiency anemia; Translations: [Iron deficiency anemia, unspecified] Onset: 12-20-2022 Resolved: 06-16-2024 10-21-2022 Episodic Other complications of (20 sources) Late entry into care; Translations: [Supervision of with insufficient care, unspecified trimester] Onset: 10-07-2022 Resolved: 12-09-2022 Episodic Other complications of (20 sources) High risk ; Translations: [Supervision of other high risk pregnancies, third trimester] Onset: 10-07-2022 Resolved: 12-09-2022 Episodic Other and delivery including normal (20 sources) Normal ; Translations: [Encounter for supervision of other normal , second trimester] Onset: 02-26-2024 Episodic Residual codes; unclassified (16 sources) Gestation period, 15 weeks; Translations: [15 weeks gestation of ] Onset: 02-26-2024 02-26-2024 Episodic Residual codes; unclassified (1 source) 15 weeks gestation of ; Translations: [15 weeks gestation of ] Onset: 02-26-2024 Episodic Results Test Name Value Interpretation Reference Range Facil mary Lorenz 08-19-2024 EBERN Telephone (OBGYWM) ANAM EUGENE ([id number]) 2000 F Date Time Provider Department 08/19/24 ARIE AKHTAR During your visit today, we recorded the following information about you: Anai Lucero RN 08/19/2024 8:29 AM Signed Received breast pump RX from [facility]. To KJ to sign. CHRISTINE Wills Trisha, RN 08/23/2024 9:13 AM Signed Order signed and faxed. Myra Osei RN Allergies As of Date: 08/19/2024 (No Known Allergies) Date Reviewed: 08/17/2024 Reviewed by: Anai Moody MD - Fully Assessed Reason for Visit: Breast Pump [Other] Prescriptions as of 08/23/2024 - ferrous sulfate (IRON ORAL) Take by mouth. 2-3 times weekly- dosage unknown - PNV no.95/ferrous fum/folic ac ( ORAL) Take 1 tablet by mouth once daily. Problem List As Of Date 08/19/2024 Noted Resolved History of section [Z98.891] 08/04/2022 Supervision of other high risk pregnancies, thi*10/07/2022 12/09/2022 Late care affecting in third*10/07/2022 12/09/2022 Iron deficiency anemia [D50.9] 10/21/2022 06/16/2024 Encounter for supervision of normal first pregn*02/26/2024 Urinary tract infection in mother during pregna*06/02/2024 Encounter Status:Closed by MYRA OSEI on 08/23/24 Normal [facility] URINE OB DIP B/Oon 4 Glucose Ql (U) Negative Neg mg/dL [facility] Protein.monoclonal (U) [Mass/Vol] trace Neg mg/dL [facility] URINE OB DIP B/Oon 4 Glucose Ql (U) Negative Neg mg/dL [facility] Interpretation and review of laboratory results Normal [facility] Protein.monoclonal (U) [Mass/Vol] Negative Neg mg/dL [facility] ROUTINE, GROUP B ST REP PCRon 07-27-2024 ROUTINE, GROUP B STREP PCR GROUP B STREP PCR: Negative for Group B Streptococcus by PCR. Normal [facility] Comment on above: Performed By: #### G BPCR ####[facility] LABCLIA [id number] [address] STATES OF [facility] URINE OB DIP B/Oon 4 Glucose Ql (U) Negative Neg mg/dL [facility] Protein.monoclonal (U) [Mass/Vol] Negative Neg mg/dL [facility] CNPNon 06-16-2024 CNPN Telephone (OBGYWM) ANAM EUGENE ([id number]) 2000 F Date Time Provider Department 06/16/24 ANAI BROWN During your visit today, we recorded the following information about you: Anai Brown APRN.EBER 06/16/2024 9:19 AM Signed Patient wanting to schedule c/s for 08/23 with bilateral salpingectomy. No preference in surgeon. Anai Brown APRN.Anai Madrid RN 06/16/2024 11:20 AM Signed JOSELYN 08/26. KJ stationary fireman on 08/23. 7:15 and Noon available that day. Surgery sheet to KJ to complete. CHRISTINE Wills Karmon, MD 06/16/2024 11:33 AM Signed Surgery sheet completed Arie Akhtar MD Allergies As of Date: 06/16/2024 (No Known Allergies) Date Reviewed: 06/16/2024 Reviewed by: Anai Bronw APRN.HEEL CEMENTER - Fully Assessed Reason for Visit: C/S [Other] Prescriptions as of 06/16/2024 - ferrous sulfate (IRON ORAL) Take by mouth. 2-3 times weekly- dosage unknown - PNV no.95/ferrous fum/folic ac ( ORAL) Take 1 tablet by mouth once daily. Problem List As Of Date 06/16/2024 Noted Resolved History of section [Z98.891] 08/04/2022 Supervision of other high risk pregnancies, thi*10/07/2022 12/09/2022 Late care affecting in third*10/07/2022 12/09/2022 Iron deficiency anemia [D50.9] 10/21/2022 06/16/2024 Encounter for supervision of normal first pregn*02/26/2024 Urinary tract infection in mother during pregna*06/02/2024 Encounter Status:Closed by ANAI LUCERO on 06/16/24 Normal [facility] CNPNon 06-03-2024 CNPN Telephone (OGFVWE) ANAM EUGENE ([id number]) 2000 F Date Time Provider Department 06/03/24 FOOD SERVICE CASHIER OGFVWE During your visit today, we recorded the following information about you: Luis Miguel Johnson, RN 06/03/2024 10:23 AM Signed 3rd risk assessment form submitted 06/03/24 Luis Miguel Johnson RN Allergies As of Date: 06/03/2024 (No Known Allergies) Date Reviewed: 06/02/2024 Reviewed by: Anai Brown APRN.HEEL CEMENTER - Fully Assessed Reason for Visit: PRAF [4193] Prescriptions as of 06/03/2024 - ferrous sulfate (IRON ORAL) Take by mouth. 2-3 times weekly- dosage unknown - PNV no.95/ferrous fum/folic ac ( ORAL) Take 1 tablet by mouth once daily. Problem List As Of Date 06/03/2024 Noted Resolved History of section [Z98.891] 08/04/2022 Supervision of other high risk pregnancies, thi*10/07/2022 12/09/2022 Late care affecting in third*10/07/2022 12/09/2022 Iron deficiency anemia [D50.9] 10/21/2022 15 weeks gestation of [Z3A.15] 02/26/2024 Encounter for supervision of normal first pregn*02/26/2024 Urinary tract infection in mother during pregna*06/02/2024 Encounter Status:Closed by LUIS MIGUEL JOHNSON on 06/03/24 Normal [facility] Bacteria Ur Culton Bacteria identified Cx Nom (U) ORGANISM ID: 1 >=100,000 CFU/ml Normal urogenital florinda Normal [facility] Comment on above: Performed By: #### 6 30-4 ####[facility] LABCLIA [id number] [address] [address] [place] CBC W Auto Differential pane l (Bld)on 06-02-2024 Basophils (Bld) [#/Vol] 0.03 10*3/uL Normal <0.11 [facility] Comment on above: Order Comment: Speci men Type: BLOOD SPECIMENOrdering Facility: [facility] Address: [address] [place] [address] Performed By: #### 5 7021-8 ####[facility] SYSTEML[facility] [id number] [place] [address] [place] Basophils/100 WBC (Bld) 0.6 % Normal [facility] Comment on above: Order Comment: Speci men Type: BLOOD SPECIMENOrdering Facility: [facility] Address: [address] [place] [address] Performed By: #### 5 7021-8 ####[facility] [id number] [place] [address] [place] Differential cell count method Nom (Bld) Auto Normal [facility] Comment on above: Order Comment: Speci men Type: BLOOD SPECIMENOrdering Facility: [facility] Address: [address] [place] [address] Performed By: #### 5 7021-8 ####[facility] SYSTEM[facility] [id number] [place] [address] [place] Eosinophils (Bld) [#/Vol] 0.08 10*3/uL Normal <0.46 [facility] Comment on above: Order Comment: Speci men Type: BLOOD SPECIMENOrdering Facility: [facility] Address: [address] [place] [address] Performed By: #### 5 7021-8 ####[facility] SYSTEM[facility] [id number] [place] [address] [place] Eosinophils/100 WBC (Bld) 1.6 % Normal [facility] Comment on above: Order Comment: Speci men Type: BLOOD SPECIMENOrdering Facility: [facility] Address: [address] [place] [address] Performed By: #### 5 7021-8 ####[facility] KALINCARYA [id number] [place] [address] [place] Erythrocyte distribution width (RBC) [Ratio] 12.4 % Normal 11.5-15.0 [facility] Comment on above: Order Comment: Speci men Type: BLOOD SPECIMENOrdering Facility: [facility] Address: [address] [place] [address] Performed By: #### 5 7021-8 ####[facility] YAREDSOUTH EGREMONTNCLIA [id number] [place] [address] [place] Hematocrit (Bld) [Volume fraction] 34.5 % Low 36.0-46.0 [facility] Comment on above: Order Comment: Speci men Type: BLOOD SPECIMENOrdering Facility: [facility] Address: [address] [place] [address] Performed By: #### 5 7021-8 ####[facility] YAREDSOUTH EGREMONTNCLIA [id number] [place] [address] [place] Hemoglobin (Bld) [Mass/Vol] 11.6 g/dL Normal 11.5-15.5 [facility] Comment on above: Order Comment: Speci men Type: BLOOD SPECIMENOrdering Facility: [facility] Address: [address] [place] [address] Performed By: #### 5 7021-8 ####[facility] JACKSONVILLENCLIA [id number] [place] [address] [place] Immature granulocytes (Bld) [#/Vol] 0.03 10*3/uL Normal <0.10 [facility] Comment on above: Order Comment: Speci men Type: BLOOD SPECIMENOrdering Facility: [facility] Address: [address] [place] [address] Performed By: #### 5 7021-8 ####[facility] MILLWNCLIA [id number] [place] [address] [place] [facility] Immature granulocytes/100 WBC (Bld) 0.6 % Normal [facility] Comment on above: Order Comment: Speci men Type: BLOOD SPECIMENOrdering Facility: [facility] Address: [address] [place] [address] Performed By: #### 5 7021-8 ####[facility] JACKSONVILLEJOVONLIA [id number] [place] [address] [place] Lymphocytes (Bld) [#/Vol] 1.44 10*3/uL Normal 1.00-4.00 [facility] Comment on above: Order Comment: Speci men Type: BLOOD SPECIMENOrdering Facility: [facility] Address: [address] [place] [address] Performed By: #### 5 7021-8 ####[facility] [id number] [place] [address] [place] Lymphocytes/100 WBC (Bld) 28.0 % Normal [facility] Comment on above: Order Comment: Speci men Type: BLOOD SPECIMENOrdering Facility: [facility] Address: [address] [place] [address] Performed By: #### 5 7021-8 ####[facility] JACKSONVILLEJOVONLIA [id number] [place] [address] [place] MCH (RBC) [Entitic mass] 30.3 pg Normal 26.0-34.0 [facility] Comment on above: Order Comment: Speci men Type: BLOOD SPECIMENOrdering Facility: [facility] Address: [address] [place] [address] Performed By: #### 5 7021-8 ####[facility]SONVILLENCJORD[facility] [id number] [place] [id number] [place] MCHC (RBC) [Mass/Vol] 33.6 g/dL Normal 30.5-36.0 [facility] Comment on above: Order Comment: Speci men Type: BLOOD SPECIMENOrdering Facility: [facility] Address: [address] [place] [address] Performed By: #### 5 7021-8 ####[facility] JACKSONVILLEJOVONVANESSA [id number] [place] [address] [place] MCV (RBC) [Entitic vol] 90.1 fL Normal 80.0-100.0 [facility] Comment on above: Order Comment: Speci men Type: BLOOD SPECIMENOrdering Facility: [facility] Address: [address] [place] [address] Performed By: #### 5 7021-8 ####[facility]ACKSONVILLEJOVONRegnia [id number] [place] [address] [place] Monocytes (Bld) [#/Vol] 0.29 10*3/uL Normal <0.87 [facility] Comment on above: Order Comment: Speci men Type: BLOOD SPECIMENOrdering Facility: [facility] Address: [address] [place] [address] Performed By: #### 5 7021-8 ####[facility] JACKSONVILLECLAUDEA [id number] [place] [address] [place] Monocytes/100 WBC (Bld) 5.6 % Normal [facility] Comment on above: Order Comment: Speci men Type: BLOOD SPECIMENOrdering Facility: [facility] Address: [address] [place] [address] Performed By: #### 5 7021-8 ####[facility] JACKSONVILLENCLIA [id number] [place] [address] [place] Neutrophils (Bld) [#/Vol] 3.27 10*3/uL Normal 1.45-7.50 [facility] Comment on above: Order Comment: Speci men Type: BLOOD SPECIMENOrdering Facility: [facility] Address: [address] [place] [address] Performed By: #### 5 7021-8 ####[facility] YAREDSABRINA [id number] [place] [address] [place] Neutrophils/100 WBC (Bld) 63.6 % Normal [facility] Comment on above: Order Comment: Speci men Type: BLOOD SPECIMENOrdering Facility: [facility] Address: [address] [place] [address] Performed By: #### 5 7021-8 ####[facility] [id number] [place] [address] [place] Nucleated RBC (Bld) [#/Vol] 10*3/uL Normal <0.01 [facility] Comment on above: Order Comment: Speci men Type: BLOOD SPECIMENOrdering Facility: [facility] Address: [address] [place] [address] Performed By: #### 5 7021-8 ####[facility] [id number] [place] [address] [place] Nucleated RBC/100 WBC (Bld) [Ratio] 0.0 /100 WBC Normal [facility] Comment on above: Order Comment: Speci men Type: BLOOD SPECIMENOrdering Facility: [facility] Address: [address] [place] [address] Performed By: #### 5 7021-8 ####[facility] [id number] [place] [address] [place] Platelet mean volume (Bld) [Entitic vol] 10.9 fL Normal 9.0-12.7 [facility] Comment on above: Order Comment: Speci men Type: BLOOD SPECIMENOrdering Facility: [facility] Address: [address] [place] [address] Performed By: #### 5 7021-8 ####[facility] JACKSONVILLENCLIA [id number] [place] [address] [place] Platelets (Bld) [#/Vol] 188 10*3/uL Normal 150-400 [facility] Comment on above: Order Comment: Speci men Type: BLOOD SPECIMENOrdering Facility: [facility] Address: [address] [place] [address] Performed By: #### 5 7021-8 ####[facility] JACKSONVILLENCLIA [id number] [place] [address] [place] RBC (Bld) [#/Vol] 3.83 10*6/uL Low 3.90-5.[address] [facility] Comment on above: Order Comment: Speci men Type: BLOOD SPECIMENOrdering Facility: [facility] Address: [address] [place] [address] Performed By: #### 5 7021-8 ####[facility] [id number] [place] [address] [place] WBC (Bld) [#/Vol] 5.14 10*3/uL Normal 3.70-11.[address] [facility] Comment on above: Order Comment: Speci men Type: BLOOD SPECIMENOrdering Facility: [facility] Address: [address] [place] [address] Performed By: #### 5 7021-8 ####[facility] SYSTEM[facility] [id number] [place] [address] [place] Examination level ultrasound on 06-02-2024 [facility] Radiology Study observation (narrative) [facility] GESTATIONAL GLUCOSE SCREEN, 1-HOUR, 50 GRAM, NON-FASTINGon 06-02-2024 Glucose [Mass/Vol] 95 mg/dL Normal 74-134 [facility] Comment on above: Order Comment: Speci men Type: BLOOD SPECIMENOrdering Facility: [facility] Address: [address] [place] [id number] Result Comment: [facility] Congress of Obstetricians and Gynecologists (Travis/Gerry) guidelines state a gestational diabetes mellitus positive screen is made, in women not previously diagnosed with overt diabetes, when the 1 hr plasma glucose level is equal to or above 140 mg/dL. The [facility] [place] recommends a 135 mg/dL cutoff. Performed By: #### G LTGST ####[facility] [id number] [place] [address] [place] Reagin and Treponema pallidu m IgG and IgM [Interp]on 06-02-2024 T. pallidum IgG+IgM IA Ql (S) Non-Reactive Normal Nonreactive [facility] Comment on above: Order Comment: Speci men Type: BLOOD SPECIMENOrdering Facility: [facility] Address: [address] [place] [address] Performed By: #### 7 3752-8 ####[facility] LABIA [id number] [place] [id number] [place] Reagin+T pallidum IgG+IgM Se rPl-Impon 06-02-2024 Reagin and Treponema pallidum IgG and IgM [Interp] Cannot exclude recent Treponemal infection if specimen collected within 7-10 days after appearance of suspect lesions or 2-3 weeks after an exposure. Clinical correlation is required. Normal [facility] Comment on above: Order Comment: Speci men Type: BLOOD SPECIMENOrdering Facility: [facility] Address: [address] [place] [address] Performed By: #### 7 3752-8 ####[facility] LABIA [id number] [place] [id number] [place] CBC panel Auto (Bld)on 04-25 Erythrocyte distribution width (RBC) [Ratio] 12.5 % Normal 11.5-15.0 [facility] Comment on above: Order Comment: Speci men Type: BLOOD SPECIMENOrdering Facility: [facility] Address: [address] [place] [address] Performed By: #### 5 8410-2 ####[facility] JOHN [id number] [address] [place] Hematocrit (Bld) [Volume fraction] 35.4 % Low 36.0-46.0 [facility] Comment on above: Order Comment: Speci men Type: BLOOD SPECIMENOrdering Facility: [facility] Address: [address] [place] [address] Performed By: #### 5 8410-2 ####[facility]ACKSONVILLEJOVONRegina [id number] [place] [address] [place] Hemoglobin (Bld) [Mass/Vol] 12.2 g/dL Normal 11.5-15.5 [facility] [facility] Comment on above: Order Comment: Speci men Type: BLOOD SPECIMENOrdering Facility: [facility] Address: [address] [place] [address] Performed By: #### 5 8410-2 ####[facility] [id number] [place] [address] [place] MCH (RBC) [Entitic mass] 30.7 pg Normal 26.0-34.0 [facility] Comment on above: Order Comment: Speci men Type: BLOOD SPECIMENOrdering Facility: [facility] Address: [address] [place] [address] Performed By: #### 5 8410-2 ####[facility] JACKSONVILLENCLIA [id number] [place] [address] [place] MCHC (RBC) [Mass/Vol] 34.5 g/dL Normal 30.5-36.0 [facility] Comment on above: Order Comment: Speci men Type: BLOOD SPECIMENOrdering Facility: [facility] Address: [address] [place] [address] Performed By: #### 5 8410-2 ####[facility] ASYAWNCLIA [id number] [place] [address] [place] MCV (RBC) [Entitic vol] 89.2 fL Normal 80.0-100.0 [facility] Comment on above: Order Comment: Speci men Type: BLOOD SPECIMENOrdering Facility: [facility] Address: [address] [place] [address] Performed By: #### 5 8410-2 ####[facility] YAREDSOUTH EGREMONTJOVONLIA [id number] [place] [address] [place] Nucleated RBC (Bld) [#/Vol] 10*3/uL Normal <0.01 [facility] Comment on above: Order Comment: Speci men Type: BLOOD SPECIMENOrdering Facility: [facility] Address: [address] [place] [address] Performed By: #### 5 8410-2 ####[facility] [id number] [place] [address] [place] Platelet mean volume (Bld) [Entitic vol] 11.4 fL Normal 9.0-12.7 [facility] Comment on above: Order Comment: Speci men Type: BLOOD SPECIMENOrdering Facility: [facility] Address: [address] [place] [address] Performed By: #### 5 8410-2 ####[facility] JACKSONVILLENCLIA [id number] [place] [address] [place] Platelets (Bld) [#/Vol] 214 10*3/uL Normal 150-400 [facility] Comment on above: Order Comment: Speci men Type: BLOOD SPECIMENOrdering Facility: [facility] Address: [address] [place] [address] Performed By: #### 5 8410-2 ####[facility] SYSTEMLIA [id number] [place] [address] [place] RBC (Bld) [#/Vol] 3.97 10*6/uL Normal 3.90-5.[address] [facility] Comment on above: Order Comment: Speci men Type: BLOOD SPECIMENOrdering Facility: [facility] Address: [address] [place] [address] Performed By: #### 5 8410-2 ####[facility] [id number] [place] [address] [place] WBC (Bld) [#/Vol] 5.71 10*3/uL Normal 3.70-11.[address] [facility] Comment on above: Order Comment: Speci men Type: BLOOD SPECIMENOrdering Facility: [facility] Address: [address] [place] [address] Performed By: #### 5 8410-2 ####[facility] [id number] [place] [address] [place] HBV surface Ag Ser Qlon 04-03 HBV surface Ag Ql (S) Negative Normal Negative [facility] Comment on above: Order Comment: Speci men Type: BLOOD SPECIMENOrdering Facility: [facility] Address: [address] [place] [address] Performed By: #### 5 195-3, 85993-3, 27279-2 ####[facility] LABCLIA [id number] [address] [place] HCV Ab Ser Qlon 04-25-2024 HCV Ab Ql (S) Negative Normal Negative [facility] Comment on above: Order Comment: Speci men Type: BLOOD SPECIMENOrdering Facility: [facility] Address: [address] [place] [address] Result Comment: The result suggests no evidence of active infection with Hepatitis C virus. Should recent infection be suspected, repeat testing may be considered 4-6 weeks after this draw. Performed By: #### 1 6128-1 ####[facility] LABCLIA [id number] [place] [address] [place] HGB ELECTROPHORESIS FOR EVAL (LAB ORDER)on 04-25-2024 Hemoglobin A (Bld) [Mass fraction] 97.4 % Normal 96.2-98.0 [facility] Comment on above: Order Comment: Speci men Type: BLOOD SPECIMENOrdering Facility: [facility] Address: [address] [place] [address] Performed By: #### H GBELEV ####[facility] LABCLIA [id number] [place] [address] [place] Hemoglobin A2 (Bld) [Mass fraction] 2.6 % Normal 2.0-3.1 [facility] Comment on above: Order Comment: Speci men Type: BLOOD SPECIMENOrdering Facility: [facility] Address: [address] [place] [address] Performed By: #### H GBELEV ####[facility] LABCLIA [id number] [place] [address] [place] Hemoglobin Unsp Elph (Bld) [Mass fraction] No abnormal hemoglobin identified. Normal No abnormal hemoglobin identified. [facility] Comment on above: Order Comment: Speci men Type: BLOOD SPECIMENOrdering Facility: [facility] Address: [address] [place] [address] Performed By: #### H GBELEV ####[facility] LABCLIA [id number] [place] [address] [place] HIV 1+2 Ab IA Qlon 4 HIV 1 and 2 Ab IA.rapid Nom (S/P/Bld) Normal [facility] Comment on above: Order Comment: Speci men Type: BLOOD SPECIMENOrdering Facility: [facility] Address: [address] [place] [address] Result Comment: Test not indicated. Performed By: #### 5 195-3, 99614-3, 55020-6 ####[facility] LABCLIA [id number] [place] [address] [place] HIV 1+2 Ab+HIV1 p24 Ag IA Ql Non-Reactive Normal Nonreactive [facility] Comment on above: Order Comment: Speci men Type: BLOOD SPECIMENOrdering Facility: [facility] Address: [address] [place] [address] Performed By: #### 5 195-3, 90983-0, 79331-5 ####[facility] LABCLIA [id number] [place] [address] [place] HIV immunoassay testing algorithm interpretation (S/P/Bld) [Interp] Normal [facility] Comment on above: Order Comment: Speci men Type: BLOOD SPECIMENOrdering Facility: [facility] Address: [address] [place] [address] Result Comment: No e vidence of HIV-1 or HIV-2 infection. Should recent infection be suspected, repeat testing may be considered 2-3 weeks after this draw. [place] Rev. Code 3701.243(E): This information has been disclosed to you from confidential records protected from disclosure by state law. ???You shall make no further disclosure of this information without the specific, written, and informed release of the individual to whom it pertains or as otherwise permitted by state law. A general authorization for the release of medical or other information is not sufficient for the purpose of the release of HIV test results or diagnoses. Performed By: #### 5 195-3, 42476-1, 24267-6 ####[facility] LABCLIA [id number] [place] [address] [place] HbA1c (Bld)on 04-25-2024 Average glucose Estimated from glycated hemoglobin (Bld) [Mass/Vol] 77 mg/dL Normal [facility] Comment on above: Order Comment: Speci men Type: BLOOD SPECIMENOrdering Facility: [facility] Address: [address] [place] [address] Result Comment: eAG: (Estimated average glucose) is a calculated value from HgbA1c and is field sales representative of the average blood glucose level in the last 2-3 month period. Performed By: #### 5 5454-3 ####[facility] LABCLIA [id number] [place] [address] [place] HbA1c (Bld) [Mass fraction] 4.3 % Normal 4.3-5.6 [facility] Comment on above: Order Comment: Speci men Type: BLOOD SPECIMENOrdering Facility: [facility] Address: [address] [place] [address] Result Comment: [place] Diabetes Association guidelines indicate that patients with HgbA1c in the range 5.7-6.4% are at increased risk for development of diabetes, and intervention by lifestyle modification may be beneficial. HgbA1c greater or equal to 6.5% is considered diagnostic of diabetes. Performed By: #### 5 5454-3 ####[facility] LABCLIA [id number] [place] [address] [place] RBC PARAMETERS FOR HB IDon 0 - Erythrocyte distribution width (RBC) [Ratio] 12.6 % Normal 11.5-15.0 [facility] Comment on above: Order Comment: Speci men Type: BLOOD SPECIMENOrdering Facility: [facility] Address: [address] [place] [address] Performed By: #### L [id number] ####[facility] LABCLIA [id number] [place] [address] [place] Hematocrit (Bld) [Volume fraction] 35.9 % Low 36.0-46.0 [facility] Comment on above: Order Comment: Speci men Type: BLOOD SPECIMENOrdering Facility: [facility] Address: [address] [place] [address] Performed By: #### L [id number] ####[facility] LABCLIA [id number] [place] [address] [place] Hemoglobin (Bld) [Mass/Vol] 12.6 g/dL Normal 11.5-15.5 [facility] Comment on above: Order Comment: Speci men Type: BLOOD SPECIMENOrdering Facility: [facility] Address: [address] [place] [address] Performed By: #### L [id number] ####[facility] LABCLIA [id number] [place] [address] [place] MCH (RBC) [Entitic mass] 31.9 pg Normal 26.0-34.0 [facility] Comment on above: Order Comment: Speci men Type: BLOOD SPECIMENOrdering Facility: [facility] Address: [address] [place] [address] Performed By: #### L [id number] ####[facility] LABIA [id number] [place] [address] [place] MCHC (RBC) [Mass/Vol] 35.1 g/dL Normal 30.5-36.0 [facility] Comment on above: Order Comment: Speci men Type: BLOOD SPECIMENOrdering Facility: [facility] Address: [address] [place] [address] Performed By: #### L [id number] ####[facility] LABIA [id number] [place] [address] [place] MCV (RBC) [Entitic vol] 90.9 fL Normal 80.0-100.0 [facility] Comment on above: Order Comment: Speci men Type: BLOOD SPECIMENOrdering Facility: [facility] Address: [address] [place] [address] Performed By: #### L [id number] ####[facility] LABCLIA [id number] [place] [address] [place] RBC (Bld) [#/Vol] 3.95 10*6/uL Normal 3.90-5.[address] [facility] Comment on above: Order Comment: Speci men Type: BLOOD SPECIMENOrdering Facility: [facility] Address: [address] [place] [address] Performed By: #### L [id number] ####[facility] LABIA [id number] [place] [address] [place] RUBELLA IGG ANTIBODYon 04-25 RUBELLA IGG AB, QUAL Negative Abnormal Positive [facility] Comment on above: Order Comment: Speci katie Type: BLOOD SPECIMENOrdering Facility: [facility] Address: [address] [place] [address] Result Comment: The result suggests no history of Rubella vaccination or exposure to Rubella virus, however, some individuals with past history of Rubella vaccination may test negative using this test as immunity to Rubella virus wanes over time after vaccination. Please correlate with vaccination history if applicable. Performed By: #### R UBIGG ####[facility] LABIA [id number] [place] [address] [place] Reagin and Treponema pallidu m IgG and IgM [Interp]on 04-25-2024 T. pallidum IgG+IgM IA Ql (S) Non-Reactive Normal Nonreactive [facility] Comment on above: Order Comment: Speci katie Type: BLOOD SPECIMENOrdering Facility: [facility] Address: [address] [place] [address] Performed By: #### 5 195-3, 23833-7, 45533-5 ####[facility] LABIA [id number] [place] [address] [place] Reagin+T pallidum IgG+IgM Se rPl-Impon 04-25-2024 Reagin and Treponema pallidum IgG and IgM [Interp] Cannot exclude recent Treponemal infection if specimen collected within 7-10 days after appearance of suspect lesions or 2-3 weeks after an exposure. Clinical correlation is required. Normal [facility] Comment on above: Order Comment: Kota wilson Type: BLOOD SPECIMENOrdering Facility: [facility] Address: [address] [place] [address] Performed By: #### 5 195-3, 56744-1, 30864-3 ####[facility] LABIA [id number] [address] [place] TYPE + SCREEN PRENATALon ABO AB Normal [facility] Comment on above: Order Comment: Speci men Type: BLOOD SPECIMENOrdering Facility: [facility] Address: [address] [place] [address] Performed By: #### T SPN ####[facility] BLO[facility] BANKCLIA [id number] [address] HISTORICAL AB SCR STATUS Negative Normal [facility] Comment on above: Order Comment: Speci men Type: BLOOD SPECIMENOrdering Facility: [facility] Address: [address] [place] [address] Performed By: #### T SPN ####[facility] BLO[facility] BANKCLIA [id number] [address] Rh Nom (Bld) Positive Normal [facility] Comment on above: Order Comment: Speci men Type: BLOOD SPECIMENOrdering Facility: [facility] Address: [address] [place] [address] Performed By: #### T SPN ####[facility] BLO[facility] BANKCLIA [id number] [address] TYPE AND SCREEN EXPIRATION 04/28/2024 23:59 Normal [facility] Comment on above: Order Comment: Speci men Type: BLOOD SPECIMENOrdering Facility: [facility] Address: [address] [place] [address] Performed By: #### T SPN ####[facility] BLOOD BANKCLIA [id number] [address] [place] 04-08-2024 DAVID Telephone (OGFVWE) ANAM EUGENE ([id number]) 2000 F Date Time 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 - PNV no.95/ferrous fum/folic ac ( ORAL) Take by mouth. Problem List As Of Date 04/08/2024 Noted Resolved History of section [Z98.891] 08/04/2022 12/09/2022 Supervision of other high risk pregnancies, thi*10/07/2022 12/09/2022 Late care affecting in third*10/07/2022 12/09/2022 Iron deficiency anemia [D50.9] 10/21/2022 15 weeks gestation of [Z3A.15] 02/26/2024 Encounter for supervision of normal first pregn*02/26/2024 Encounter Status:Closed by LUIS MIGUEL JOHNSON on 04/08/24 [facility] 03-29-2024 [facility] Telephone (OBGYWM) ANAM EUGENE ([id number]) 2000 F Date Time Provider Department 03/29/24 ARIE AKHTAR During your visit today, we recorded the following information about you: Myra Osei RN 03/29/2024 4:49 PM Signed Left message for patient to call office or check mychart message. CHRISTINE Saleem Karmon, MD [place], Trisha, CHRISTINE Please let patient know that her EDC is 08/26/24. It is changed based on today's US. Thanks! Myra Watts RN 03/30/2024 1:53 PM Signed 2nd attempt. Left message for patient to call office or check mychart message. Myra Osei RN Allergies As of Date: 03/29/2024 (No Known Allergies) Date Reviewed: 03/29/2024 Reviewed by: Arie Akhtar MD - Fully Assessed Reason for Visit: Follow Up [171] Prescriptions as of 03/30/2024 - ferrous sulfate (IRON ORAL) Take by mouth. - PNV no.95/ferrous fum/folic ac ( ORAL) Take by mouth. Problem List As Of Date 03/29/2024 Noted Resolved History of section [Z98.891] 08/04/2022 12/09/2022 Supervision of other high risk pregnancies, thi*10/07/2022 12/09/2022 Late care affecting in third*10/07/2022 12/09/2022 Iron deficiency anemia [D50.9] 10/21/2022 15 weeks gestation of [Z3A.15] 02/26/2024 Encounter for supervision of normal first pregn*02/26/2024 Encounter Status:Closed by MYRA OSEI on 03/30/24 Normal [facility] Telephone (LUKASZGYWM) ANAM EUGENE ([id number]) 2000 F Date Time Provider Department 03/29/24 ARIE AKHTAR During your visit today, we recorded the following information about you: Jenni Holman LPN 03/29/2024 1:22 PM Signed Intermittent FMLA paperwork completed and placed on providers desk for signature. ALISTAIR Decker Kimberly, LPN 04/07/2024 4:31 PM Signed FMLA paperwork completed, faxed to employer, scanned into EMR and filed in nurses station. Jenni Holman LPN Allergies As of Date: 03/29/2024 (No Known Allergies) Date Reviewed: 03/29/2024 Reviewed by: Arie Akhtar MD - Fully Assessed Reason for Visit: FMLA Paperwork [4185] Prescriptions as of 04/07/2024 - ferrous sulfate (IRON ORAL) Take by mouth. - PNV no.95/ferrous fum/folic ac ( ORAL) Take by mouth. Problem List As Of Date 03/29/2024 Noted Resolved History of section [Z98.891] 08/04/2022 12/09/2022 Supervision of other high risk pregnancies, thi*10/07/2022 12/09/2022 Late care affecting in third*10/07/2022 12/09/2022 Iron deficiency anemia [D50.9] 10/21/2022 15 weeks gestation of [Z3A.15] 02/26/2024 Encounter for supervision of normal first pregn*02/26/2024 Encounter Status:Closed by JENNI HOLMAN on 04/07/24 Normal [facility] Examination level ultrasound on 03-29-2024 Indication anatomy survey Impression REMOTE READ 1. Single, live, intrauterine . 2. biometry is consistent with estimated date of delivery 08/26/24 (reported early dating from center [facility] 08/24/24 but records unavailable) 3. Unremarkable anatomic survey. No markers for aneuploidy are noted. 4. Amniotic fluid normal amount. 5. The placenta is anterior, fundal. 6. Normal transabdominal cervical length without evidence of funneling or dynamic changes. Recommendations Recommend growth ultrasound between 24-28 weeks due to transfer of care and later assignment of [facility] Maternal Assessment Physical Exam Initial weight (lb) 148 lb Maternal assessment other: 3 Para 2 Method Transabdominal ultrasound examination. View: Adequate visualization Reynolds . Number of fetuses: 1 Dating GA by prior assessment 20 w + 2 d JOSELYN by prior assessment: 08/14/2024 Ultrasound examination on: 03/29/2024 GA by U/S based upon: AC, BPD, Femur, HC GA by U/S 18 w + 4 d JOSE[facility] by U/S: 08/26/2024 Assigned: based on ultrasound (AC, BPD, Femur, HC), selected on 03/29/2024 Assigned GA 18 w + 4 d Assigned JOSELYN: 08/26/2024 General Evaluation Cardiac activity present. FHR 146 bpm. movements: present. Presentation: transverse head left Placenta: Placental site: anterior, fundal Umbilical cord: normal insertion, 3 vessel cord Amniotic fluid: Amount of AF: normal amount. MVP 5.4 cm Growth Overview Exam date GA BPD (mm) HC (mm) AC (mm) FL (mm) HL (mm) EFW (g) 03/29/2024 18w 4d 40.6 39% 155.1 43% 142.4 79% 26.9 52% 27.2 58% 261 61% Biometry Standard BPD 40.6 mm 18w 2d 39% Hadlock OFD 56.0 mm 18w 4d 72% Nicolaides HC 155.1 mm 18w 2d 43% Glenis Cerebellum tr 19.0 mm 18w 4d 44% Hill Nuchal fold 3.3 mm AC 142.4 mm 19w 4d 79% Hadlock Femur 26.9 mm 18w 2d 52% Glenis Humerus 27.2 mm 18w 5d 58% Glenis EFW 261 g 18w 5d 61% Hadlock EFW (lb) 0 lb EFW (oz) 9 oz EFW by: Hadlock (HC-AC-FL) Extended Insurance Agents Supervisor 6.4 mm CM 4.0 mm 29% Nicolaides Extremities / Bony Struc FL / HC 0.17 21% Hadlock Other Structures FHR 146 bpm Anatomy Cranium: normal Lateral ventricles: normal Choroid plexus: normal Midline falx: normal Cavum septi pellucidi: normal Cerebellum: normal Cisterna magna: normal Head / Neck Vermis: normal Neck: normal Nuchal fold: normal Lips: normal Profile: normal Nose: normal Face Maxilla: normal Mandible: normal Orbits: normal Lens: normal 4-chamber view: normal RVOT view: normal LVOT view: normal 3-vessel view: normal 5-imevbk-epgjclb view: normal Heart / Thorax Situs: situs solitus (normal) Aortic arch view: normal Ductal arch view: normal SVC: normal IVC: normal Cardiac axis: normal Rt lung: normal Lt lung: normal Diaphragm: normal Cord insertion: normal Stomach: normal Kidneys: normal Bladder: normal Genitals: normal Abdomen Abdom. wall: normal Cervical spine: normal Thoracic spine: normal Lumbar spine: normal Sacral spine: normal Arms: normal Legs: normal Rt upper arm: normal Rt forearm: normal Rt hand: normal Rt fingers: normal Lt upper arm: normal Lt forearm: normal Lt hand: normal Lt fingers: normal Rt upper leg: normal Rt lower leg: normal Rt foot: normal Lt upper leg: normal Lt lower leg: normal Lt foot: normal sex: male Wants to know sex: yes Doppler Arterial Umbilical A PI 1.20 Umbilical A S / D 3.35 Maternal Structures Uterus / Cervix Uterus: Visualized Cervix: Visualized Approach: Transabdominal Cervical length 39.3 mm Ovaries / Tubes / Adnexa Rt ovary: Visualized Lt ovary: Visualized Performed By: Isamar Yap RDMS, RVT Read By: Suzanna Caro M.D. MATERNAL MEDICINE [facility] Radiology Study observation (narrative) [facility] C. trachomatis+N. gonorrhoea e DNA AMIRAH+probe Ql (Unsp spec)on 03-01-2024 C. trachomatis rRNA AMIRAH+probe Ql (Unsp spec) Negative Normal Negative for Chlamydia trachomatis by amplificaton [facility] Comment on above: Order Comment: Speci men Type: SWABOrdering Facility: [facility] Address: [address] [place] [address] Performed By: #### 3 6902-5 ####[facility] LABCLIA [id number] [place] [address] [place] N. gonorrhoeae rRNA AMIRAH+probe Ql (Unsp spec) Negative Normal Negative for Neisseria gonorrhoeae by amplification [facility] Comment on above: Order Comment: Speci men Type: SWABOrdering Facility: [facility] Address: [address] [place] [address] Performed By: #### 3 6902-5 ####[facility] LABCLIA [id number] [facility] [id number] [address] [place] [facility] CNPNon 03-01-2024 CNPN Telephone (SPMOBA) EUGENEANAM GARCIA ([id number]) 2000 F Date Time Provider Department 03/01/24 FOOD SERVICE CASHIER REZA During your visit today, we recorded the following information about you: Shannon Dewitt RN 03/01/2024 4:26 PM Signed 1st risk assessment form submitted 03/01/2024. Shannon Dewitt RN Allergies As of Date: 03/01/2024 (No Known Allergies) Date Reviewed: 03/01/2024 Reviewed by: Anai Moody MD - Fully Assessed Reason for Visit: PRAF [4193] Cmt: Initial PRAF Prescriptions as of 03/01/2024 - cephALEXin (KEFLEX) 500 mg capsule Take 1 capsule by mouth four times daily for 5 days. - ferrous sulfate (IRON ORAL) Take by mouth. - PNV no.95/ferrous fum/folic ac ( ORAL) Take by mouth. Problem List As Of Date 03/01/2024 Noted Resolved History of section [Z98.891] 08/04/2022 12/09/2022 Supervision of other high risk pregnancies, thi*10/07/2022 12/09/2022 Late care affecting in third*10/07/2022 12/09/2022 Iron deficiency anemia [D50.9] 10/21/2022 15 weeks gestation of [Z3A.15] 02/26/2024 Encounter for supervision of normal first pregn*02/26/2024 Encounter Status:Closed by SHANNON DEWITT on 03/01/24 Normal [facility] CNPLuisana 02-29-2024 CNPN Telephone (OBGYWM) ANAM EUGENE ([id number]) 2000 F Date Time Provider Department 02/29/24 ARELY BRYSON During your visit today, we recorded the following information about you: Arely Bryson APRN.EBER 02/29/2024 7:00 AM Signed +UTI, Keflex sent. Arely Bryson APRN.Isamar Mosquera RN 02/29/2024 8:58 AM Signed Left message to call office. Isamar Burnett RN Allergies As of Date: 02/29/2024 (No Known Allergies) Date Reviewed: 02/26/2024 Reviewed by: Laine Khan MA - Fully Assessed Reason for Visit: Results [95] Order(s):cephALEXin (KEFLEX) 500 mg capsuleTake 1 capsule by mouth four times daily for 5 days.Disp: 20 capsuleRfl: 0 Prescriptions as of 03/01/2024 - cephALEXin (KEFLEX) 500 mg capsule Take 1 capsule by mouth four times daily for 5 days. - ferrous sulfate (IRON ORAL) Take by mouth. - PNV no.95/ferrous fum/folic ac ( ORAL) Take by mouth. Problem List As Of Date 02/29/2024 Noted Resolved History of section [Z98.891] 08/04/2022 12/09/2022 Supervision of other high risk pregnancies, thi*10/07/2022 12/09/2022 Late care affecting in third*10/07/2022 12/09/2022 Iron deficiency anemia [D50.9] 10/21/2022 15 weeks gestation of [Z3A.15] 02/26/2024 Encounter for supervision of normal first pregn*02/26/2024 Prescriptions ordered this encounter Disp Refills Start End CEPHALEXIN 500 MG CAPSULE 20 c* 0 02/29/2024 03/05/2024 Route: ORAL Sig: Take 1 capsule by mouth four times daily for 5 days. Encounter Status:Closed by MYRA OSEI on 03/01/24 Normal [facility] Bacteria Ur Culton 4 Bacteria identified Cx Nom (U) ORGANISM ID: 1 >=100,000 CFU/ml Escherichia coli ORGANISM ID: 2 50,000-<100,000 CFU/ml Normal urogenital florinda ORGANISM ID: 1 (ESCHERICHIA COLI) ANTIBIOTIC INTERPRETATION LORI STATUS REFERENCE RANGE Ampicillin S 8 F Susceptible <=8 , Intermediate >8 , Resistant >16 Cefazolin S <=4 F Susceptible 0-16 , Intermediate <0 or >16 , Resistant >16 For uncomplicated urinary tract infections, cefazolin results can be used to predict susceptibility or resistance to cephalexin. Ceftriaxone S <=1 F Susceptible <=1 , Intermediate >1 , Resistant >=4 Cefepime S <=1 F Susceptible <=2 , Susceptible-Dose Dependent >2 , Resistant >=16 Ertapenem S <=0.5 F Susceptible <=0.5 , Intermediate >.5 , Resistant >1 Meropenem S <=0.25 F Susceptible <=1 , Intermediate >1 , Resistant >2 Ampicillin/Sulbact S <=2 F Susceptible <=8 , Intermediate >8 , Resistant >16 Piperacillin/Tazobac S <=4 F Susceptible <16 , Susceptible-Dose Dependent >=16 , Resistant >=32 Gentamicin S <=1 F Susceptible <=2 , Intermediate >2 , Resistant >=8 Tobramycin S <=1 F Susceptible <4 , Intermediate >=4 , Resistant >=8 Trimeth sulfameth R >=320 F Susceptible <=40 , Resistant >40 Ciprofloxacin S <=0.25 F Susceptible <0.5 , Intermediate >=.5 , Resistant >=1 Nitrofurantoin S <=16 F Susceptible <=32 , Intermediate >32 , Resistant >64 Abnormal [facility] Comment on above: Performed By: #### 6 30-4 ####[facility]CLIA [id number] [place] [address] [place] URINE OB DIP B/Oon 3 Glucose Ql (U) Negative Neg mg/dL [facility] Protein.monoclonal (U) [Mass/Vol] Negative Neg mg/dL [facility] URINE OB DIP B/Oon 3 Glucose Ql (U) Negative Neg mg/dL [facility] Protein.monoclonal (U) [Mass/Vol] trace Neg mg/dL [facility] URINE OB DIP B/Oon 3 Glucose Ql (U) Negative Neg mg/dL [facility] Protein.monoclonal (U) [Mass/Vol] Negative Neg mg/dL [facility] ROUTINE, GROUP B ST REP PCRon 11-07-2022 S. agalactiae Org specific cx Ql (Vag fld) Negative Negative [facility] URINE OB DIP B/Oon 3 Glucose Ql (U) Negative Neg mg/dL [facility] Protein.monoclonal (U) [Mass/Vol] Negative Neg mg/dL [facility] URINE OB DIP B/Oon 2 Glucose Ql (U) Negative Neg mg/dL [facility] Protein.monoclonal (U) [Mass/Vol] Negative Neg mg/dL [facility] URINE OB DIP B/Oon 2 Glucose Ql (U) Negative Neg mg/dL [facility] Protein.monoclonal (U) [Mass/Vol] Negative Neg mg/dL [facility] URINE OB DIP B/Oon 2 Glucose Ql (U) Negative Neg mg/dL [facility] Protein.monoclonal (U) [Mass/Vol] Negative Neg mg/dL [facility] URINE OB DIP B/Oon 2 Glucose Ql (U) Negative Neg mg/dL [facility] Protein.monoclonal (U) [Mass/Vol] Negative Neg mg/dL [facility] URINE OB DIP B/Oon Glucose Ql (U) Negative Neg mg/dL [facility] Protein.monoclonal (U) [Mass/Vol] trace Neg mg/dL [facility] HBV surface Ab IA Ql (S)on 1 HBV surface Ag Ql (S) Negative Negative [facility] HEP C AB IA W/CONF SCRNon HCV Ab Ql (S) Negative Negative [facility] HIV 1+2 Ab IA Qlon 2 HIV 1 and 2 Ab IA.rapid Nom [facility] HIV 1+2 Ab+HIV1 p24 Ag IA Ql Non-Reactive Nonreactive [facility] HIV Interpretation [facility] OBSTETRIC ULTRASOUND WHIon 1 [facility] Reagin and Treponema pallidu m IgG and IgM [Interp]on 08-05-2022 Syphilis Interpretation Cannot exclude recent Treponemal infection if specimen collected within 7-10 days after appearance of suspect lesions or 2-3 weeks after an exposure. Clinical correlation is required. [facility] T. pallidum IgG+IgM IA Ql (S) Non-Reactive Nonreactive [facility] URINE CULTUREon 08-05-2022 Bacteria identified Cx Nom (U) <10,000 CFU/ml Mixed microbiota Abnormal [facility] C. trachomatis+N. gonorrhoea e DNA AMIRAH+probe Ql (Unsp spec)on 08-04-2022 C. trachomatis DNA AMIRAH+probe Ql (Unsp spec) Negative Negative for Chlamydia trachomatis by amplificaton [facility] N. gonorrhoeae DNA AMIRAH+probe Ql (Unsp spec) Negative Negative for Neisseria gonorrhoeae by amplification [facility] CBC panel Auto (Bld)on 08-04 Erythrocyte distribution width (RBC) [Ratio] 13.1 % 11.5 - 15.0 % [facility] Hematocrit (Bld) [Volume fraction] 30.9 % Low 36.0 - 46.0 % [facility] Hemoglobin (Bld) [Mass/Vol] 10.4 g/dL Low 11.5 - 15.5 g/dL [facility] MCH (RBC) [Entitic mass] 30.1 pg 26.0 - 34.0 pg [facility] MCHC (RBC) [Mass/Vol] 33.7 g/dL 30.5 - 36.0 g/dL [facility] MCV (RBC) [Entitic vol] 89.3 fL 80.0 - 100.0 fL [facility] Nucleated RBC (Bld) [#/Vol] <0.01 k/uL [facility] Platelet mean volume (Bld) [Entitic vol] 9.8 fL 9.0 - 12.7 fL [facility] Platelets (Bld) [#/Vol] 283 10*3/uL 150 - 400 k/uL [facility] RBC (Bld) [#/Vol] 3.46 10*6/uL Low 3.90 - 5.20 m/uL [facility] WBC (Bld) [#/Vol] 8.18 10*3/uL 3.70 - 11.00 k/u L [facility] RUBELLA IGG ABon 08-04-2022 Rubella IgG, Qual Positive Positive [facility] TYPE + SCREEN PRENATALon ABO AB [facility] HIstorical Ab Scr Status Negative [facility] Rh Nom (Bld) Positive [facility] Type and Screen Expiration 08/07/2022 23:59 [facility] Vital Signs Date Time Vital Sign Value Performing Clinician Faci lity 08-17-2024 08:01-0400 Body weight 73.48 kg Anai Moody MD Work Phone: [facility] 08-17-2024 08:01-0400 Diastolic blood pressure 74 mm[Hg] Anai Moody MD Work Phone: [facility] 08-17-2024 08:01-0400 Systolic blood pressure 110 mm[Hg] Anai Moody MD Work Phone: [facility] 08-11-2024 14:16-0400 Body weight 73.94 kg Arie Akhtar MD Work Phone: [facility] 08-11-2024 14:16-0400 Diastolic blood pressure 60 mm[Hg] Arie Akhtar MD Work Phone: [facility] 08-11-2024 14:16-0400 Systolic blood pressure 102 mm[Hg] Arie Akhtar MD Work Phone: [facility] 08-03-2024 08:12-0400 Body weight 73.85 kg Diane Plotts MANAGER MED SURG.CNM Work Phone: [facility] 08-03-2024 08:12-0400 Diastolic blood pressure 62 mm[Hg] Diane Plotts MANAGER MED SURG.CNM Work Phone: [facility] 08-03-2024 08:12-0400 Systolic blood pressure 116 mm[Hg] Diane Plotts MANAGER MED SURG.CNM Work Phone: [facility] 07-27-2024 08:58-0400 Body weight 71.67 kg Tanika Garcia MD Work Phone: [facility] 07-27-2024 08:58-0400 Diastolic blood pressure 60 mm[Hg] Tanika Garcia MD Work Phone: [facility] 07-27-2024 08:58-0400 Systolic blood pressure 100 mm[Hg] Tanika Garcia MD Work Phone: [facility] 07-13-2024 09:32-0400 Body weight 71.67 kg Diane Plotts MANAGER MED SURG.CNM Work Phone: [facility] 07-13-2024 09:32-0400 Diastolic blood pressure 58 mm[Hg] Diane Plotts MANAGER MED SURG.CNM Work Phone: [facility] 07-13-2024 09:32-0400 Systolic blood pressure 90 mm[Hg] Diane Plotts MANAGER MED SURG.CNM Work Phone: [facility] 06-30-2024 08:13-0400 Body weight 71.22 kg Flip Galvan MD Work Phone: [facility] 06-30-2024 08:13-0400 Diastolic blood pressure 62 mm[Hg] Flip Galvan MD Work Phone: [facility] 06-30-2024 08:13-0400 Systolic blood pressure 102 mm[Hg] Flip Galvan MD Work Phone: [facility] 06-16-2024 09:09-0400 Body weight 69.4 kg Anai Haury MANAGER MED SURG.HEEL CEMENTER Work Phone: [facility] 06-16-2024 09:09-0400 Diastolic blood pressure 72 mm[Hg] Anai Haury MANAGER MED SURG.HEEL CEMENTER Work Phone: [facility] 06-16-2024 09:09-0400 Heart rate 72 /min Anai Haury MANAGER MED SURG.HEEL CEMENTER Work Phone: [facility] 06-16-2024 09:09-0400 Respiratory rate 16 /min Anai Haury MANAGER MED SURG.HEEL CEMENTER Work Phone: [facility] 06-16-2024 09:09-0400 SaO2% (BldA) [Mass fraction] 99 % Anai Haury MANAGER MED SURG.HEEL CEMENTER Work Phone: [facility] 06-16-2024 09:09-0400 Systolic blood pressure 108 mm[Hg] Anai Haury MANAGER MED SURG.HEEL CEMENTER Work Phone: [facility] 06-02-2024 09:24-0400 Body weight 69.4 kg Anai Haury MANAGER MED SURG.HEEL CEMENTER Work Phone: [facility] 06-02-2024 09:24-0400 Diastolic blood pressure 78 mm[Hg] Anai Haury MANAGER MED SURG.HEEL CEMENTER Work Phone: [facility] 06-02-2024 09:24-0400 Heart rate 78 /min Anai Haury MANAGER MED SURG.HEEL CEMENTER Work Phone: [facility] 06-02-2024 09:24-0400 Respiratory rate 12 /min Anai Haury MANAGER MED SURG.HEEL CEMENTER Work Phone: [facility] 06-02-2024 09:24-0400 SaO2% (BldA) [Mass fraction] 99 % Anai Haury MANAGER MED SURG.HEEL CEMENTER Work Phone: [facility] 06-02-2024 09:24-0400 Systolic blood pressure 118 mm[Hg] Anai Haury MANAGER MED SURG.HEEL CEMENTER Work Phone: [facility] 04-26-2024 14:39-0400 Body weight 68.13 kg Arie Akhtar MD Work Phone: [facility] 04-26-2024 14:39-0400 Diastolic blood pressure 60 mm[Hg] Arie Akhtar MD Work Phone: [facility] 04-26-2024 14:39-0400 Systolic blood pressure 100 mm[Hg] Arie Akhtar MD Work Phone: [facility] 03-29-2024 14:24-0400 Body weight 68.49 kg Arie Akhtar MD Work Phone: [facility] 03-29-2024 14:24-0400 Diastolic blood pressure 62 mm[Hg] Arie Akhtar MD Work Phone: [facility] 03-29-2024 14:24-0400 Systolic blood pressure 114 mm[Hg] Arie Akhtar MD Work Phone: [facility] 03-01-2024 12:57-0400 Body weight 65.77 kg Anai Moody MD Work Phone: [facility] 03-01-2024 12:57-0400 Diastolic blood pressure 64 mm[Hg] Anai Moody MD Work Phone: [facility] 03-01-2024 12:57-0400 Systolic blood pressure 112 mm[Hg] Anai Moody MD Work Phone: [facility] 02-26-2024 08:48-0400 Body weight 67.41 kg Arely Calvin MANAGER MED SURG.HEEL CEMENTER Work Phone: [facility] 02-26-2024 08:48-0400 Diastolic blood pressure 72 mm[Hg] Arely Adelaide MANAGER MED SURG.HEEL CEMENTER Work Phone: [facility] 02-26-2024 08:48-0400 Systolic blood pressure 118 mm[Hg] Arely Adelaide MANAGER MED SURG.HEEL CEMENTER Work Phone: [facility] 01-20-2023 15:18-0400 Body weight 65.77 kg Cyn Gan MD Work Phone: [facility] 01-20-2023 15:18-0400 Diastolic blood pressure 62 mm[Hg] Cyn Gan MD Work Phone: [facility] 01-20-2023 15:18-0400 Systolic blood pressure 104 mm[Hg] Cyn Gan MD Work Phone: [facility] 12-09-2022 11:10-0500 Body weight 59.42 kg Cyn Gan MD Work Phone: [facility] 12-09-2022 11:10-0500 Diastolic blood pressure 62 mm[Hg] Cyn Gan MD Work Phone: [facility] 12-09-2022 11:10-0500 Systolic blood pressure 112 mm[Hg] Cyn Gan MD Work Phone: [facility] 11-28-2022 13:15-0500 Body weight 69.4 kg Cyn Gan MD Work Phone: [facility] 11-28-2022 13:15-0500 Diastolic blood pressure 62 mm[Hg] Cyn Gan MD Work Phone: [facility] 11-28-2022 13:15-0500 Heart rate 100 /min Cyn Gan MD Work Phone: [facility] 11-28-2022 13:15-0500 Respiratory rate 16 /min Cyn Gan MD Work Phone: [facility] 11-28-2022 13:15-0500 SaO2% (BldA) [Mass fraction] 99 % Cyn Gan MD Work Phone: [facility] 11-28-2022 13:15-0500 Systolic blood pressure 106 mm[Hg] Cyn Gan MD Work Phone: [facility] 11-27-2022 13:00-0500 Body temperature 97.3 [degF] Treatment Wstr Work Phone: [facility] 11-27-2022 13:00-0500 Diastolic blood pressure 58 mm[Hg] Treatment Wstr Work Phone: [facility] 11-27-2022 13:00-0500 Heart rate 72 /min Treatment Wstr Work Phone: [facility] 11-27-2022 13:00-0500 Systolic blood pressure 102 mm[Hg] Treatment Wstr Work Phone: [facility] 11-25-2022 15:32-0500 Body temperature 98.6 [degF] Treatment Wstr Work Phone: [facility] 11-25-2022 15:32-0500 Diastolic blood pressure 55 mm[Hg] Treatment Wstr Work Phone: [facility] 11-25-2022 15:32-0500 Heart rate 71 /min Treatment Wstr Work Phone: [facility] 11-25-2022 15:32-0500 Respiratory rate 16 /min Treatment Wstr Work Phone: [facility] 11-25-2022 15:32-0500 Systolic blood pressure 94 mm[Hg] Treatment Wstr Work Phone: [facility] 11-20-2022 15:01-0500 Body weight 70.31 kg Arie Akhtar MD Work Phone: [facility] 11-20-2022 15:01-0500 Diastolic blood pressure 62 mm[Hg] Arie Akhtar MD Work Phone: [facility] 11-20-2022 15:01-0500 Systolic blood pressure 104 mm[Hg] Arie Akhtar MD Work Phone: [facility] 11-18-2022 13:35-0500 Body temperature 97.5 [degF] Treatment Wstr Work Phone: [facility] 11-18-2022 13:35-0500 Diastolic blood pressure 56 mm[Hg] Treatment Wstr Work Phone: [facility] 11-18-2022 13:35-0500 Heart rate 79 /min Treatment Wstr Work Phone: [facility] 11-18-2022 13:35-0500 Systolic blood pressure 105 mm[Hg] Treatment Wstr Work Phone: [facility] 11-13-2022 13:27-0500 Body weight 68.67 kg Diane Plotts MANAGER MED SURG.CNM Work Phone: [facility] 11-13-2022 13:27-0500 Diastolic blood pressure 62 mm[Hg] Diane Plotts MANAGER MED SURG.CNM Work Phone: [facility] 11-13-2022 13:27-0500 Systolic blood pressure 98 mm[Hg] Diane Plotts MANAGER MED SURG.CNM Work Phone: [facility] 11-06-2022 13:12-0500 Body weight 68.04 kg Diane Plotts MANAGER MED SURG.CNM Work Phone: [facility] 11-06-2022 13:12-0500 Diastolic blood pressure 60 mm[Hg] Diane Plotts MANAGER MED SURG.CNM Work Phone: [facility] 11-06-2022 13:12-0500 Systolic blood pressure 108 mm[Hg] Diane Plotts MANAGER MED SURG.CNM Work Phone: [facility] 10-31-2022 11:35-0500 Body weight 65.32 kg Cyn Gan MD Work Phone: [facility] 10-31-2022 11:35-0500 Diastolic blood pressure 60 mm[Hg] Cyn Gan MD Work Phone: [facility] 10-31-2022 11:35-0500 Systolic blood pressure 102 mm[Hg] Cyn Gan MD Work Phone: [facility] 10-17-2022 16:10-0500 Body weight 64.86 kg Cyn Gan MD Work Phone: [facility] 10-17-2022 16:10-0500 Diastolic blood pressure 64 mm[Hg] Cyn Gan MD Work Phone: [facility] 10-17-2022 16:10-0500 Systolic blood pressure 108 mm[Hg] Cyn Gan MD Work Phone: [facility] 10-07-2022 10:52-0500 Body weight 62.6 kg Cyn Gan MD Work Phone: [facility] 10-07-2022 10:52-0500 Diastolic blood pressure 56 mm[Hg] Cyn Gan MD Work Phone: [facility] 10-07-2022 10:52-0500 Systolic blood pressure 104 mm[Hg] Cyn Gan MD Work Phone: [facility] 09-19-2022 15:36-0500 Body weight 65.77 kg Cyn Gan MD Work Phone: [facility] 09-19-2022 15:36-0500 Diastolic blood pressure 60 mm[Hg] Cyn Gan MD Work Phone: [facility] 09-19-2022 15:36-0500 Systolic blood pressure 110 mm[Hg] Cyn Gan MD Work Phone: [facility] 08-29-2022 15:10-0400 Body weight 61.96 kg Arie Akhtar MD Work Phone: [facility] 08-29-2022 15:10-0400 Diastolic blood pressure 56 mm[Hg] Arie Akhtar MD Work Phone: [facility] 08-29-2022 15:10-0400 Systolic blood pressure 82 mm[Hg] Arie Akhtar MD Work Phone: [facility] 08-04-2022 14:59-0400 Body weight 61.69 kg Flip Galvan MD Work Phone: [facility] Encounters Encounter Date Encounter Type Care Provider Facility Start: 08-25-2024 End: 08-30-2024 ambulatory Arie Akhtar MD Work Phone: OB/Gynecology Comment on above: C section Start: 08-24-2024 End: 08-24-2024 ambulatory Arie Akhtar MD Work Phone: OB/Gynecology Comment on above: Ob Delivery Note Start: 08-19-2024 End: 08-23-2024 Telephone encounter Arie Akhtar MD Work Phone: OB/Gynecology Comment on above: Breast Pump Start: 08-17-2024 End: 08-17-2024 ambulatory ANAI MOODY Facility:[facility] Start: 08-17-2024 End: 08-17-2024 Office outpatient visit 15 minutes Anai Moody MD Work Phone: OB/Gynecology Comment on above: History of section (Primary Dx); Encounter for supervision of other normal in third trimester; 38 weeks gestation of Start: 08-12-2024 End: 08-12-2024 [facility] Start: 08-12-2024 End: 08-12-2024 Patient encounter procedure [facility] Comment on above: Population Health Na vigation Outreach (Ob.ped) Start: 08-11-2024 End: 08-11-2024 ambulatory ARIE AKHTAR Facility:[facility] Start: 08-11-2024 End: 08-11-2024 Patient encounter procedure Arie Akhtar MD Work Phone: OB/Gynecology Comment on above: Encounter for superv ision of other normal in third trimester (Primary Dx); 37 weeks gestation of ; History of section Start: 08-09-2024 End: 08-09-2024 ambulatory Arie Akhtar MD Work Phone: OB/Gynecology Start: 08-09-2024 End: 08-09-2024 Patient encounter procedure Arie Akhtar MD Work Phone: OB/Gynecology Comment on above: Appointment Start: 08-03-2024 End: 08-03-2024 ambulatory DIANE CAMARGO Facility:[facility] Start: 08-03-2024 End: 08-03-2024 Patient encounter procedure Diane Camargo MANAGER MED SURG.CNM Work Phone: OB/Gynecology Comment on above: 37 weeks gestation o f (Primary Dx); History of section; Encounter for supervision of other normal in third trimester Start: 07-27-2024 End: 07-27-2024 ambulatory TANIKA GARCIA Facility:[facility] Start: 07-27-2024 End: 07-27-2024 Patient encounter procedure Tanika Garcia MD Work Phone: OB/Gynecology Comment on above: Encounter for superv ision of other normal in third trimester (Primary Dx); History of section; 35 weeks gestation of ; Encounter for supervision of normal first in second trimester Start: 07-13-2024 End: 07-13-2024 ambulatory DIANE CAMARGO Facility:[facility] Start: 07-13-2024 End: 07-13-2024 Patient encounter procedure Diane Camargo MANAGER MED SURG.CNM Work Phone: OB/Gynecology Comment on above: Encounter for superv ision of other normal in third trimester (Primary Dx); 33 weeks gestation of ; History of section Start: 06-30-2024 End: 06-30-2024 ambulatory FLIP GALVAN Facility:[facility] Start: 06-30-2024 End: 06-30-2024 Patient encounter procedure Flip Galvan MD Work Phone: OB/Gynecology Comment on above: Encounter for superv ision of normal first in third trimester (Primary Dx); 31 weeks gestation of ; History of section Start: 06-16-2024 Telephone encounter Anai ackerman APRN.HEEL CEMENTER Work Phone: OB/Gynecology Comment on above: C/S Start: 06-16-2024 End: 06-16-2024 ambulatory ARIE AKHTAR Facility:[facility] Start: 06-16-2024 End: 06-16-2024 Patient encounter procedure Anai Brown APRN.HEEL CEMENTER Work Phone: OB/Gynecology Comment on above: Encounter for superv ision of normal first in third trimester (Primary Dx); 29 weeks gestation of ; Encounter for supervision of normal first in second trimester Start: 06-03-2024 Telephone encounter Weather Clerk RN Obstetrics/Gynecology Comment on above: PRARandy Start: 06-02-2024 End: 06-02-2024 Patient encounter procedure Anai Brown APRN.HEEL CEMENTER Work Phone: OB/Gynecology Comment on above: Encounter for superv ision of other normal in second trimester (Primary Dx); 27 weeks gestation of ; Need for vaccination; Screening for depression; Encounter for supervision of normal first in second trimester; Urinary tract infection in mother during , antepartum; History of section Encounter for ultras ound to check growth (Primary Dx); Suspected problem with growth not found; 27 weeks gestation of Start: 06-02-2024 End: 06-02-2024 ambulatory ARIE AKHTAR Facility:[facility] Start: 04-26-2024 End: 04-26-2024 ambulatory ARIE AKHTAR Facility:[facility] Start: 04-26-2024 End: 04-26-2024 Patient encounter procedure Arie Akhtar MD Work Phone: OB/Gynecology Comment on above: 22 weeks gestation o f (Primary Dx); Encounter for supervision of other normal in second trimester Start: 04-25-2024 End: 04-25-2024 ambulatory Anai Brown APRN.HEEL CEMENTER Work Phone: OB/Gynecology Start: 04-25-2024 E-mail encounter fro m caregiver Anai Brown APRN.HEEL CEMENTER Work Phone: OB/Gynecology Start: 04-08-2024 Telephone encounter Weather Clerk RN Obstetrics/Gynecology Comment on above: PRAF Start: 03-29-2024 End: 03-29-2024 ambulatory ARIE AKHTAR Facility:[facility] Start: 03-29-2024 End: 03-29-2024 Patient encounter procedure Arie Akhtar MD Work Phone: OB/Gynecology Comment on above: Encounter for superv ision of other normal in second trimester (Primary Dx); 20 weeks gestation of ; Previous section Start: 03-29-2024 Telephone encounter Arie gordon MD Work Phone: OB/Gynecology Comment on above: Follow Up FMLA Paperwork Start: 03-29-2024 End: 03-29-2024 ambulatory ARELY WATERPORT Facility:[facility] Start: 03-29-2024 End: 03-29-2024 Patient encounter procedure Docket Clerk [facility] Work Phone: OB/Gynecology Comment on above: Encounter for anatomic survey (Primary Dx); 18 weeks gestation of Start: 03-28-2024 ambulatory Arie Marley Work Phone: OB/Gynecology Comment on above: Work intermittent le ave Start: 03-01-2024 Telephone encounter Weather Clerk RN Obstetrics/Gynecology Comment on above: PRAF (Initial PRAF) Start: 03-01-2024 End: 03-01-2024 ambulatory ANAI MOODY Facility:[facility] Start: 03-01-2024 End: 03-01-2024 Office outpatient visit 15 minutes Anai Moody MD Work Phone: OB/Gynecology Comment on above: Encounter for superv ision of other normal in second trimester (Primary Dx); Previous section Start: 02-29-2024 Telephone encounter Arely granda MANAGER MED SURG.HEEL CEMENTER Work Phone: OB/Gynecology Comment on above: Results Start: 02-26-2024 End: 02-26-2024 ambulatory ARELY ADELAIDE Facility:[facility] Start: 02-26-2024 End: 02-26-2024 Patient encounter procedure Arely Bryson MANAGER MED SURG.HEEL CEMENTER Work Phone: OB/Gynecology Comment on above: Uncertain dates, ant epartum, first trimester (Primary Dx); 15 weeks gestation of ; Encounter for supervision of normal first in second trimester Start: 01-20-2023 End: 01-20-2023 Patient encounter procedure Cyn Gan MD Work Phone: OB/Gynecology Comment on above: care and examination (Primary Dx) Start: 01-14-2023 ambulatory Cyn jain MD Work Phone: OB/Gynecology Comment on above: Return to work Start: 12-31-2022 ambulatory Cyn jain MD Work Phone: OB/Gynecology Comment on above: Bathing Start: 12-25-2022 ambulatory Cyn jain MD Work Phone: OB/Gynecology Comment on above: Incision Start: 12-15-2022 Telephone encounter Arie gordon MD Work Phone: OB/Gynecology Comment on above: Breast Pump Start: 12-09-2022 End: 12-09-2022 Patient encounter procedure Cyn Gan MD Work Phone: OB/Gynecology Comment on above: Status post section routine follow-up (Primary Dx) Start: 12-03-2022 ambulatory Cyn jain MD Work Phone: OB/Gynecology Comment on above: Ob Delivery Note Start: 11-28-2022 End: 11-28-2022 Patient encounter procedure Cyn Gan MD Work Phone: OB/Gynecology Comment on above: 39 weeks gestation o f (Primary Dx); Supervision of other high risk pregnancies, third trimester Start: 11-27-2022 End: 11-27-2022 [facility] Work Phone: H[facility]ology/Oncology Comment on above: Supervision of other high risk pregnancies, third trimester (Primary Dx); Iron deficiency anemia, unspecified iron deficiency anemia type Start: 11-25-2022 End: 11-25-2022 ambulatory Treatment Rm 1 [facility] Work Phone: Hematology/Oncology Comment on above: Iron deficiency anem ia, unspecified iron deficiency anemia type (Primary Dx) Start: 11-23-2022 ambulatory Diane cage MANAGER MED SURG.CNM Work Phone: OB/Gynecology Comment on above: Maternity leave Start: 11-20-2022 End: 11-20-2022 Patient encounter procedure Arie Akhtar MD Work Phone: OB/Gynecology Comment on above: Supervision of other high risk pregnancies, third trimester (Primary Dx); 38 weeks gestation of Start: 11-18-2022 End: 11-18-2022 ambulatory Treatment Rm 11 Donnell [facility] Work Phone: Hematology/Oncology Comment on above: Iron deficiency anem ia, unspecified iron deficiency anemia type (Primary Dx) Start: 11-13-2022 End: 11-13-2022 Patient encounter procedure Diane Camargo MANAGER MED SURG.CNM Work Phone: OB/Gynecology Comment on above: 37 weeks gestation o f (Primary Dx); History of section Start: 11-06-2022 End: 11-06-2022 Patient encounter procedure Diane Camargo MANAGER MED SURG.CNM Work Phone: OB/Gynecology Comment on above: 36 weeks gestation o f (Primary Dx) Start: 10-31-2022 End: 10-31-2022 Patient encounter procedure Cyn Gan MD Work Phone: OB/Gynecology Comment on above: Supervision of other high risk pregnancies, third trimester (Primary Dx); 25 weeks gestation of ; Antepartum anemia complicating in third trimester Start: 10-23-2022 ambulatory Cyn jain MD Work Phone: OB/Gynecology Comment on above: Starting maternity l eave before . Start: 10-20-2022 ambulatory Maggi Sterling RN [facility] Comment on above: Blood management Start: 10-17-2022 End: 10-17-2022 Patient encounter procedure Cyn Gan MD Work Phone: OB/Gynecology Comment on above: 33 weeks gestation o f (Primary Dx); Encounter for supervision of other normal in third trimester Start: 10-07-2022 End: 10-07-2022 Patient encounter procedure Cyn Gan MD Work Phone: OB/Gynecology Comment on above: 31 weeks gestation o f (Primary Dx); Encounter for supervision of other normal in third trimester; Supervision of other high risk pregnancies, third trimester; Late care affecting in third trimester Start: 09-19-2022 End: 09-19-2022 Patient encounter procedure Cyn Gan MD Work Phone: OB/Gynecology Comment on above: 29 weeks gestation o f (Primary Dx); Encounter for supervision of other normal in third trimester; Maternal care due to low transverse uterine scar from previous delivery Start: 08-29-2022 End: 08-29-2022 Patient encounter procedure Arie Akhtar MD Work Phone: OB/Gynecology Comment on above: History of section (Primary Dx); 26 weeks gestation of Start: 08-29-2022 Telephone encounter Arie gordon MD Work Phone: OB/Gynecology Comment on above: Forms Start: 08-04-2022 End: 08-04-2022 Patient encounter procedure Flip Galvan MD Work Phone: OB/Gynecology Comment on above: 22 weeks gestation o f (Primary Dx); Late care; Encounter for supervision of other normal in second trimester; History of section Start: 07-31-2022 Telephone encounter Flip pérez MD Work Phone: OB/Gynecology Comment on above: Appointment Procedures Date Procedure Procedure Detail Performing Clinician Start: 08-11-2024 Urnls dip stick/tabl et rgnt non-auto w/o micrscp Arie Akhtar MD Work Phone: Start: 08-03-2024 Urnls dip stick/tabl et rgnt non-auto w/o micrscp Diane Camargo MANAGER MED SURG.CNM Work Phone: Start: 07-27-2024 RSV VACCINE, BIVALEN T (ABRYSVO) Tanika Garcia MD Work Phone: Start: 07-27-2024 Urnls dip stick/tabl et rgnt non-auto w/o micrscp Tanika Garcia MD Work Phone: Start: 06-02-2024 Us preg uterus after 1st trimest 11/02 gestation Arie Akhtar MD Work Phone: Start: 04-25-2024 Antibody screen ARELY BARBER Comment on above: Order Comment: Speci men Type: BLOOD SPECIMENOrdering Facility: [facility] Address: [address] [place] [address] Performed By: #### T SPN ####CC MAIN BLOOD BANKCLIA [id number] [place] [address] [place] Start: 03-29-2024 Us preg uterus after 1st trimest 11/02 gestation Arely Bryson MANAGER MED SURG.HEEL CEMENTER Work Phone: Start: 11-28-2022 URINE OB DIP B/O Jeovanny Gan MD Work Phone: Start: 11-20-2022 URINE OB DIP B/O Arie Akhtar MD Work Phone: Start: 11-13-2022 URINE OB DIP B/O Tanvi Camargo MANAGER MED SURG.CNM Work Phone: Start: 11-06-2022 Iadna streptococcus group b amplified probe tq Diane Camargo MANAGER MED SURG.CNM Work Phone: Start: 11-06-2022 URINE OB DIP B/O Tanvi Dunhambenedicto MANAGER MED SURG.CNM Work Phone: Start: 10-31-2022 URINE OB DIP B/O Susanecsantos Gan MD Work Phone: Start: 10-17-2022 URINE OB DIP B/O Susanecsantos Gan MD Work Phone: Start: 10-07-2022 URINE OB DIP B/O Jeovanny Gan MD Work Phone: Start: 09-19-2022 URINE OB DIP B/O Susanecc regina Gan MD Work Phone: Start: 08-29-2022 URINE OB DIP B/O Arie Akhtar MD Work Phone: Start: 08-05-2022 Us preg uterus after 1st trimest 1 gestation Flip Galvan MD Work Phone: Start: 08-04-2022 Antibody screen Flip santana MD Work Phone: Start: 08-04-2022 Iadna chlamydia trac homatis amplified probe tq Flip Galvan MD Work Phone: Start: 08-04-2022 End: 12-09-2022 H/O: section History of section Flip Galvan MD Work Phone: H/O: section History of section Arie Akhtar MD Work Phone: H/O: section History of section Diane Dunhambenedicto MANAGER MED SURG.CNM Work Phone: H/O: section Previous c esarean section Anai Moody MD Work Phone: H/O: section Previous c esarean section Arie Akhtar MD Work Phone: H/O: section History of section Anai Aguileradomi MANAGER MED SURG.HEEL CEMENTER Work Phone: H/O: section History of section Flip Galvan MD Work Phone: H/O: section History of section Diane Camargo MANAGER MED SURG.CNM Work Phone: H/O: section History of section Tanika Garcia MD Work Phone: H/O: section History of section Diane Camargo MANAGER MED SURG.CNM Work Phone: H/O: section History of section Arie Akhtar MD Work Phone: H/O: section History of section Anai Moody MD Work Phone: Plan of Treatment Date Care Activity Detail Author Start: 06-02-2034 Urine microalbumin profile DTaP,Tdap,Td Vaccine (2 - Td or Tdap) [facility] Start: 08-04-2025 PAP TESTING PAP TESTING [facility] Start: 08-04-2025 Screening for malign ant neoplasm of cervix [facility] Start: 09-02-2024 End: 09-02-2024 Patient encounter procedure 09/02/2024 10:30 AM EDT Office Visit OB/Gynecology [address] [place] [id number] Arie Akhtar MD [address] [place] [address] Incision check OB/Gynecology Comment on above: Incision check Start: 08-17-2024 End: 08-17-2024 Patient encounter procedure 08/17/2024 8:10 AM EDT Routine Office Visit OB/Gynecology [address] [place] [id number] Anai Moody MD [address] [place] [address] OB Routine OB/Gynecology Comment on above: OB Routine Start: 08-11-2024 End: 08-11-2024 Patient encounter procedure 08/11/2024 2:20 PM EDT Routine Office Visit OB/Gynecology [address] [place] [address] Arie Akhtar MD [address] [place] [address] OB Pre Op 08/23 @ [facility] OB/Gynecology Comment on above: OB Pre Op 08/23 @ [facility] Start: 08-09-2024 End: 08-09-2024 Patient encounter procedure 08/09/2024 10:30 AM EDT Routine Office Visit OB/Gynecology [address] [place] [address] Arie Akhtar MD [address] [place] [address] OB Pre Op 08/23 @ [facility] OB/Gynecology Comment on above: OB Pre Op 08/23 @ [facility] Start: 08-03-2024 End: 08-03-2024 Patient encounter procedure 08/03/2024 8:00 AM EDT Routine Office Visit OB/Gynecology [address] [place] [address] Diane Camargo APRN.[facility] [address] [place] [address] OB Routine OB/Gynecology Comment on above: OB Routine Start: 07-27-2024 End: 07-27-2024 Patient encounter procedure 07/27/2024 9:10 AM EDT Routine Office Visit OB/Gynecology [address] [place] [address] Tanika Sales MD [address] [place] [address] OB OB/Gynecology Comment on above: OB Start: 07-13-2024 End: 07-13-2024 Patient encounter procedure 07/13/2024 9:45 AM EDT Routine Office Visit OB/Gynecology [address] [place] [address] Diane Camargo APRN.CNM [address] [place] [address] (Fax) OB OB/Gynecology Comment on above: OB Start: 07-03-2024 Covid-19 Vaccine ( season) Covid-19 Vaccine ( season) [facility] Start: 07-03-2024 Covid-19 Vaccine ( season) Covid-19 Vaccine ( season) [facility] Start: 07-03-2024 Influenza vaccination [facility] Start: 07-03-2024 RSV Vaccine (1 - Ris k 1-dose series) RSV Vaccine (1 - Risk 1-dose series) [facility] Start: 06-30-2024 End: 06-30-2024 Patient encounter procedure 06/30/2024 8:30 AM EDT Routine Office Visit OB/Gynecology [address] [place] [address] Flip Galvan MD [address] [place] [address] OB OB/Gynecology Comment on above: OB Start: 06-16-2024 End: 06-16-2024 Patient encounter procedure 06/16/2024 9:00 AM EDT Routine Office Visit OB/Gynecology [address] [place] [address] Anai Brown, MANAGER MED SURG.HEEL CEMENTER [address] [place] [address] OB OB/Gynecology Comment on above: OB Start: 06-07-2024 End: 09-06-2024 CBC W Auto Differential panel - Blood COMPLETE BLOOD COUNT AND DIFFERENTIAL Lab Routine 22 weeks gestation of Encounter for supervision of other normal in second trimester Expected: 06/07/2024 (Approximate), Expires: 09/06/2024 [facility] Comment on above: Expected: 06/07/2024 (Approximate), Expires: 09/06/2024 Start: 06-07-2024 End: 09-06-2024 GESTATIONAL GLUCOSE SCREEN, 1-HOUR, 50 GRAM, NON-FASTING GESTATIONAL GLUCOSE SCREEN, 1-HOUR, 50 GRAM, NON-FASTING Lab Routine 22 weeks gestation of Encounter for supervision of other normal in second trimester Expected: 06/07/2024 (Approximate), Expires: 09/06/2024 [facility] Comment on above: Expected: 06/07/2024 (Approximate), Expires: 09/06/2024 Start: 06-07-2024 End: 09-06-2024 SYPHILIS TOTAL W/REFLEX SYPHILIS TOTAL W/REFLEX Lab Routine 22 weeks gestation of Encounter for supervision of other normal in second trimester Expected: 06/07/2024 (Approximate), Expires: 09/06/2024 [facility] Comment on above: Expected: 06/07/2024 (Approximate), Expires: 09/06/2024 Start: 06-01-2024 End: 06-01-2024 Patient encounter procedure OB/Gynecology Comment on above: Growth OB Start: 06-01-2024 End: 06-01-2024 ambulatory 06/01/2024 1:45 PM EDT Results Only [place] [facility] [address] [place] [address] Labs [facility] Comment on above: Labs Start: 04-26-2024 End: 04-26-2024 Patient encounter procedure OB/Gynecology Comment on above: OB OB - order growth u/ s for 24-28 weeks Start: 04-26-2024 End: 04-26-2025 OBSTETRIC ULTRASOUND WHI OBSTETRIC ULTRASOUND WHI Anc Imaging Routine 22 weeks gestation of Encounter for supervision of other normal in second trimester Expected: 04/26/2024, Expires: 04/26/2025 [facility] Work Phone: Comment on above: Expected: 04/26/2024 , Expires: 04/26/2025 Start: 04-25-2024 End: 07-25-2024 HEMOGLOBIN EVALUATION CASCADE [facility] Work Phone: Comment on above: Expected: 04/25/2024 , Expires: 07/25/2024 Start: 03-29-2024 End: 03-29-2024 Patient encounter procedure 03/29/2024 2:40 PM EDT Routine Office Visit OB/Gynecology [address] [address] Arie Akhtar MD [address] [place] [address] OB OB/Gynecology Comment on above: OB Start: 03-29-2024 End: 03-29-2024 Patient encounter procedure 03/29/2024 1:30 PM EDT Routine Office Visit OB/Gynecology [address] [place] [address] Anatomy OB/Gynecology Comment on above: Anatomy Start: 03-25-2024 End: 03-25-2024 Patient encounter procedure 03/25/2024 10:20 AM EDT Routine Office Visit OB/Gynecology [address] [place] [address] Flip Galvan MD [address] [place] [address] new ob lmp 11/08/23 OB/Gynecology Comment on above: new ob lmp 11/08/23 Start: 03-01-2024 End: 03-01-2024 Patient encounter procedure 03/01/2024 12:50 PM EDT Routine Office Visit OB/Gynecology [address] [place] [address] Anai Moody MD [address] [place] [address] OB OB/Gynecology Comment on above: OB Start: 02-26-2024 End: 05-27-2024 CBC panel - Blood by Automated count COMPLETE BLOOD COUNT Lab Routine 15 weeks gestation of Expected: 02/26/2024, Expires: 05/27/2024 [facility] Work Phone: Comment on above: Expected: 02/26/2024 , Expires: 05/27/2024 Start: 02-26-2024 End: 05-27-2024 Hemoglobin A1c in Blood HEMOGLOBIN A1C Lab Routine 15 weeks gestation of Expected: 02/26/2024, Expires: 05/27/2024 [facility] Comment on above: Expected: 02/26/2024 , Expires: 05/27/2024 Start: 02-26-2024 End: 05-27-2024 Hepatitis B virus surface Ag [Presence] in Serum HEPATITIS B SURFACE ANTIGEN Lab Routine 15 weeks gestation of Expected: 02/26/2024, Expires: 05/27/2024 [facility] Comment on above: Expected: 02/26/2024 , Expires: 05/27/2024 Start: 02-26-2024 End: 05-27-2024 Hepatitis C virus Ab [Presence] in Serum HEPATITIS C ANTIBODY IA WITH CONFIRMATION Lab Routine 15 weeks gestation of Expected: 02/26/2024, Expires: 05/27/2024 [facility] Comment on above: Expected: 02/26/2024 , Expires: 05/27/2024 Start: 02-26-2024 End: 05-27-2024 HIV 1+2 Ab [Presence] in Serum or Plasma by Immunoassay HIV 1/2 COMBO WITH REFLEX TO DIFFERENTIATION Lab Routine 15 weeks gestation of Expected: 02/26/2024, Expires: 05/27/2024 [facility] Comment on above: Expected: 02/26/2024 , Expires: 05/27/2024 Start: 02-26-2024 End: 02-25-2025 OBSTETRIC ULTRASOUND WHI OBSTETRIC ULTRASOUND WHI Anc Imaging Routine 15 weeks gestation of Expected: 02/26/2024, Expires: 02/25/2025 [facility] Comment on above: Expected: 02/26/2024 , Expires: 02/25/2025 Start: 02-26-2024 End: 05-27-2024 RUBELLA IGG ANTIBODY RUBELLA IGG ANTIBODY Lab Routine 15 weeks gestation of Expected: 02/26/2024, Expires: 05/27/2024 [facility] Comment on above: Expected: 02/26/2024 , Expires: 05/27/2024 Start: 02-26-2024 End: 05-27-2024 SYPHILIS TOTAL W/REFLEX SYPHILIS TOTAL W/REFLEX Lab Routine 15 weeks gestation of Expected: 02/26/2024, Expires: 05/27/2024 [facility] Comment on above: Expected: 02/26/2024 , Expires: 05/27/2024 Start: 02-26-2024 End: 05-27-2024 TYPE + SCREEN TYPE + SCREEN Blood Bank Routine 15 weeks gestation of Expected: 02/26/2024, Expires: 05/27/2024 [facility] Comment on above: Expected: 02/26/2024 , Expires: 05/27/2024 Start: 11-02-2023 Behavioral Health Screening Behavioral Health Screening [facility] Start: 08-04-2023 CHLAMYDIA SCREENING (18-24) CHLAMYDIA SCREENING (18-24) [facility] Start: 08-04-2023 GC (GONORRHEA) SCREENING (18-24) GC (GONORRHEA) SCREENING (18-24) [facility] Start: 07-03-2023 Covid-19 Vaccine ( season) Covid-19 Vaccine ( season) [facility] Start: 11-02-2022 DEPRESSION ASSESSMENT DEPRESSION ASS ESSMENT [facility] Start: 08-29-2022 End: 10-29-2022 CBC W Auto Differential panel - Blood CBC + DIFF Lab Routine 26 weeks gestation of Expected: 08/29/2022, Expires: 10/29/2022 [facility] Work Phone: Comment on above: Expected: 08/29/2022 , Expires: 10/29/2022 Start: 08-29-2022 End: 10-29-2022 GEST GLUC SCREEN, 1-HR, 50 GM, NON-FASTING GEST GLUC SCREEN, 1-HR, 50 GM, NON-FASTING Lab Routine 26 weeks gestation of Expected: 08/29/2022, Expires: 10/29/2022 [facility] Work Phone: Comment on above: Expected: 08/29/2022 , Expires: 10/29/2022 Start: 08-29-2022 End: 10-29-2022 SYPHILIS TOTAL W/REFLEX SYPHILIS TOTAL W/REFLEX Lab Routine 26 weeks gestation of Expected: 08/29/2022, Expires: 10/29/2022 [facility] Work Phone: Comment on above: Expected: 08/29/2022 , Expires: 10/29/2022 Start: 07-03-2022 Influenza vaccination INFLUENZA (#1) [facility] Start: 11-02-2021 DEPRESSION ASSESSMENT DEPRESSION ASS ESSMENT [facility] Start: 2020 PAP TESTING PAP TESTING [facility] Start: 2018 Hepatitis B Vaccine (1 of 3 - 19+ 3-dose series) Hepatitis B Vaccine (1 of 3 - 19+ 3-dose series) [facility] Start: 2018 Urine microalbumin profile [facility] Start: 2017 Anxiety Screening Anxiety Screening [facility] Start: 2017 CHLAMYDIA SCREENING (18-24) CHLAMYDIA SCREENING (18-24) [facility] Start: 2017 Depression Screening Depression Scre ening [facility] Start: 2017 GC (GONORRHEA) SCREENING (18-24) GC (GONORRHEA) SCREENING (18-24) [facility] Start: 2017 HEPATITIS C SCREENING HEPATITIS C SC REENING [facility] Start: 2017 HIV SCREENING HIV SCREENING [facility] Start: 2015 Meningococcal B Vaccine: Consider Based On Risk (1 of 2 - Patient Seeks Protection) Meningococcal B Vaccine: Consider Based On Risk (1 of 2 - Patient Seeks Protection) [facility] Start: 2014 HPV Vaccine (1 - 3-d ose series) HPV Vaccine (1 - 3-dose series) [facility] Start: 2013 PEDS TO ADULT TRANSITION ANNUAL ASSESSMENT PEDS TO ADULT TRANSITION ANNUAL ASSESSMENT [facility] Start: 2011 PEDS TO ADULT TRANSITION INITIAL DISCUSSION PEDS TO ADULT TRANSITION INITIAL DISCUSSION [facility] Start: 2010 HPV VACCINE (1 - 2-d ose series) HPV VACCINE (1 - 2-dose series) [facility] Start: 01-08-2000 COVID-19 VACCINE (#1) COVID-19 VACCI NE (#1) [facility] Start: 1999 HEPATITIS B (1 of 3 - 3-dose series) HEPATITIS B (1 of 3 - 3-dose series) [facility] Bacteria identified in Urine by Culture URINE CULTURE Microbiology Routine 15 weeks gestation of 02/26/2024 10:00 AM EDT [facility] Bacteria identified in Urine by Culture URINE CULTURE Microbiology Routine Urinary tract infection in mother during , antepartum 06/02/2024 10:08 AM T [facility] Work Phone: Chlamydia trachomatis+Neisseria gonorrhoeae DNA [Presence] in Unspecified specimen by AMIRAH with probe detection GONORRHEA/CHLAMYDIA NAAT Lab Routine Encounter for supervision of other normal in second trimester Previous section 03/01/2024 2:14 PM [facility] Work Phone: PAP FLUID CERVICAL SCREENING PAP FLUID CERVICAL SCREENING Lab Routine 22 weeks gestation of Late care Encounter for supervision of other normal in second trimester 08/04/2022 3:53 PM T [facility] Work Phone: ROUTINE, GR OUP B STREP PCR ROUTINE, GROUP B STREP PCR Microbiology Routine Encounter for supervision of other normal in third trimester 07/27/2024 9:43 AM [facility] Work Phone: URINE OB DIP B/O URINE OB DIP B/ O Lab Routine History of section Encounter for supervision of other normal in third trimester 38 weeks gestation of Ordered: 08/17/2024 [facility] Work Phone: Comment on above: Ordered: 08/17/2024 [facility] Immunizations Immunization Date Immunization Notes Care Provider Fa dennis 07-27-2024 respiratory syncytia l virus (RSV) vaccine, bivalent (ABRYSVO) Tanika Garcia MD Work Phone: [facility] 06-02-2024 tetanus toxoid, redu linette diphtheria toxoid, and acellular pertussis vaccine, adsorbed Anai Brown MANAGER MED SURG.HEEL CEMENTER Work Phone: [facility] 12-03-2022 influenza virus vacc ine, unspecified formulation Arely Bryson MANAGER MED SURG.HEEL CEMENTER Work Phone: [facility] Payers Date Payer Category Payer Unknown [id number] 2022 Medicaid [id number] Social History Date Type Detail Facility Tobacco smoking stat [facility] Tobacco smoking consumption unknown [facility] Start: 2000 Sex Assigned At Not on file [facility] Start: 08-04-2022 Tobacco smoking stat [facility] Never smoked tobacco [facility] Start: 08-04-2022 Tobacco use and exposure Smoke less tobacco non-user [facility] Start: 08-04-2022 End: 08-24-2024 Alcohol intake Ex-drinker (finding) [facility] Start: 03-13-2022 [facility] Start: 07-25-2022 End: 09-19-2022 Exposure to SARS-CoV-2 (event) Not sure [facility] Start: 01-18-2024 End: 02-26-2024 History of Social function [facility] Start: 01-18-2024 End: 02-26-2024 Tobacco use panel [facility] National Score (1-10 0), lower number is lower risk 55 [facility] Start: 2000 Sex Assigned At Female [facility] Start: 02-26-2024 Gender identity Identifies as female gender (finding) [facility] Start: 02-26-2024 Sexual orientation Heterosexual (josselin gordon) [facility] Goals Date Patient Goal Desired Activity /State Personal health goal Clinical Notes 07-31-2022 to 08-30-2024 Telephone Encounter - Arie Akhtar MD - 08/30/2024 10:44 AM EDTTelephone Encounter - Arie Akhtar MD - 08/30/2024 10:44 AM EDTTelephone Encounter - Anai Lucero RN - 08/30/2024 9:46 AM EDT Note Date & Type Note Facility 08-30-2024 Telephone encount er Note Noted. Thanks! Arie Akhtar MD [facility] Work Phone: 08-30-2024 Miscellaneous Notes Formattin g of this note might be different from the original. Noted. Thanks! Arie Akhtar MD Left message for patient to call office. Also, sent a Mychart message. Anai Lucero RN Please call patient to confirm that she has cystogram scheduled and appointment with to remove the montgomery. Arie Akhtar MD documented in this encounter [facility] 08-30-2024 Telephone encount er Note Left message for patient to call office. Also, sent a Proterrahart message. Anai Lucero RN [facility] 08-30-2024 Telephone encount er Note Please call patient to confirm that she has cystogram scheduled and appointment with to remove the montgomery. Arie Akhtar MD [facility] 08-24-2024 Note HNO ID: [id number] Author: MYRA OSEI RN Service: ? Author Type: Registered Nurse Type: Progress Notes Filed: 08/24/2024 08:51 Note Text: Patient delivered via by Dr. Akhtar on 08/23/24 at [facility]. See OB history. Myra Osei RN [facility] 08-24-2024 History of Presen t illness Narrative Patient delivered via by Dr. Akhtar on 08/23/24 at [facility]. See OB history. Myra Osei RN documented in this encounter [facility] 08-23-2024 Telephone encount er Note Order signed and faxed. Myra Osei RN [facility] 08-23-2024 Miscellaneous Notes Formattin g of this note might be different from the original. Order signed and faxed. Myra Osei RN Received breast pump RX from [employer]. To KJ to sign. Anai Lucero RN documented in this encounter [facility] 08-19-2024 Telephone encount er Note Received breast pump RX from [employer]. To JOE to sign. Anai Lucero RN [facility] 08-17-2024 Progress note Formatting of t his note might be different from the original. S: Anam Eugene is a 24 year old female who presents at 08/26/2024, by Ultrasound for a routine visit. Denies headache, visual changes, chest pain, shortness of breath, vaginal bleeding, leakage of fluid, or dysuria. Feeling well, no complaints. Good movement, No contractions O: See flow sheet Gen: No apparent distress Abd: Gravid, nontender Repeat c/s next week with TL ASSESSMENT/PLAN: 1. History of section - ICD9: V45.89, ICD10: Z98.891 (primary diagnosis) - URINE OB DIP B/O 2. Encounter for supervision of other normal in third trimester - ICD9: V22.1, ICD10: Z34.83 - URINE OB DIP B/O 3. 38 weeks gestation of - ICD9: V22.2, ICD10: Z3A.38 - URINE OB DIP B/O Anai Moody MD [facility] 08-17-2024 Miscellaneous Notes Formattin g of this note might be different from the original. S: Anam Eugene is a 24 year old female who presents at 08/26/2024, by Ultrasound for a routine visit. Denies headache, visual changes, chest pain, shortness of breath, vaginal bleeding, leakage of fluid, or dysuria. Feeling well, no complaints. Good movement, No contractions O: See flow sheet Gen: No apparent distress Abd: Gravid, nontender Repeat c/s next week with TL ASSESSMENT/PLAN: 1. History of section - ICD9: V45.89, ICD10: Z98.891 (primary diagnosis) - URINE OB DIP B/O 2. Encounter for supervision of other normal in third trimester - ICD9: V22.1, ICD10: Z34.83 - URINE OB DIP B/O 3. 38 weeks gestation of - ICD9: V22.2, ICD10: Z3A.38 - URINE OB DIP B/O Anai Moody MD documented in this encounter [facility] 08-17-2024 Santino Wall MA - 08/17/2024 7:55 AM EDT SEQUENTIAL SCREENINGS The [facility] offers sequential screenings for women who are interested in screenings for chromosomal abnormalities and certain defects during a . The sequential screen combines ultrasound and blood tests to determine the risk of chromosomal abnormalities, including Down's Syndrome (Trisomy 21) and Trisomy 18, as well as open neural tube defects including spina bifida. Ultrasound examination is performed between 11 weeks and 13 weeks gestational age. Blood tests are drawn after the ultrasound and again later in the between 15 and 21 weeks gestational age. Please let your physician know if you are interested in this testing. It will require an appointment with our bakery technician. This is not an ultrasound performed by a physician in our office during a routine visit. SIGNS AND SYMPTOMS OF LABOR 1. Contractions every 10 minutes or more often 2. Clear, pink, or brownish fluid (water) leaking from vagina 3. Feeling that baby is pushing down, pressure 4. Low, dull backache 5. Cramps that feel like a period 6. Cramps with or without diarrhea If you notice any of the above symptoms, contact our office at [phone] and ask to speak with a nurse. After hours, you can call doctors registry at [phone] OR call [facility] at [phone] and ask to have the doctor stationary fireman paged. If you consider this an emergency, dial 8-1-9 or go to your nearest emergency department. NEED HELP? Are you dealing with a violent or abusive relationship? Are you a victim of rape or sexual assult? Call [facility] ([place]) 24 hour Crisis Hotline: 254.691.2427 or 864-007-5607. MANUAL Your Guide to a Healthy manual is now on-line. Visit [email or web address] to download your free copy documented in this encounter [facility] 08-16-2024 Note HNO ID: [id number] Author: BECK CHAPA, ? Service: ? Author Type: Patient Rubberizing Mechanic Type: Progress Notes Filed: 08/16/2024 07:00 Note Text: POPULATION HEALTH NAVIGATION OUTREACH Action/FYI Added bluing oven tender via note Reason for Outreach Medicaid OB/Peds Care Gaps due: N/A Patient Contacted: Unable or unnecessary to reach patient: [place] bluing oven tender added Navigation Signature: Beck Chapa Population Health Navigator August 16, 2024 6:59 AM [facility] 08-15-2024 Note HNO ID: [id number] Author: BECK CHAPA, ? Service: ? Author Type: Patient Rubberizing Mechanic Type: Progress Notes Filed: 08/15/2024 08:35 Note Text: POPULATION HEALTH NAVIGATION OUTREACH Action/FYI 3rd attempt left message to add bluing oven tender to ob provider field Reason for Outreach Medicaid OB/Peds Care Gaps due: N/A Patient Contacted: Unable or unnecessary to reach patient: Unable to reach patient Left message Navigation Signature: Beck Chapa Population Health Navigator August 15, 2024 8:35 AM [facility] 08-12-2024 Note HNO ID: [id number] Author: BECK CHAPA, ? Service: ? Author Type: Patient Rubberizing Mechanic Type: Progress Notes Filed: 08/12/2024 08:22 Note Text: POPULATION HEALTH NAVIGATION OUTREACH Action/FYI Left message to add bluing oven tender to OB provider field, verify/est pcp My chart sent Reason for Outreach Medicaid OB/Peds Care Gaps due: N/A Patient Contacted: Unable or unnecessary to reach patient: Unable to reach patient Left message MyChart message sent Navigation Signature: Beck Chapa Population Health Navigator August 12, 2024 8:21 AM [facility] 08-12-2024 History of Presen t illness Narrative POPULATION HEALTH NAVIGATION OUTREACH Action/FYI Left message to add bluing oven tender to OB provider field, verify/est pcp My chart sent Reason for Outreach Medicaid OB/Peds Care Gaps due: N/A Patient Contacted: Unable or unnecessary to reach patient: Unable to reach patient Left message MyChart message sent Navigation Signature: Beck Chapa Population Health Navigator August 12, 2024 8:21 AM documented in this encounter [facility] 08-12-2024 Note Patient Outreach (NE TNAV) ANAM EUGENE ([id number]) 2000 F Date Time Provider Department 08/12/24 PANZERO, BECK NETNAV During your visit today, we recorded the following information about you: Sylvie Chapacy 08/12/2024 8:22 AM Signed POPULATION HEALTH NAVIGATION OUTREACH Action/FYI Left message to add bluing oven tender to OB provider field, verify/est pcp My chart sent Reason for Outreach Medicaid OB/Peds Care Gaps due: N/A Patient Contacted: Unable or unnecessary to reach patient: Unable to reach patient Left message MyChart message sent Navigation Signature: Beck Chapa Population Health Navigator August 12, 2024 8:21 AM Beck Chapa 08/15/2024 8:35 AM Signed POPULATION HEALTH NAVIGATION OUTREACH Action/FYI 3rd attempt left message to add bluing oven tender to ob provider field Reason for Outreach Medicaid OB/Peds Care Gaps due: N/A Patient Contacted: Unable or unnecessary to reach patient: Unable to reach patient Left message Navigation Signature: Beck Chapa Jibbigo Navigator August 15, 2024 8:35 AM Beck Chapa 08/16/2024 7:00 AM Signed POPULATION HEALTH NAVIGATION OUTREACH Action/FYI Added bluing oven tender via note Reason for Outreach Medicaid OB/Peds Care Gaps due: N/A Patient Contacted: Unable or unnecessary to reach patient: [place] bluing oven tender added Navigation Signature: Beck Chapa Jibbigo Navigator August 16, 2024 6:59 AM Allergies As of Date: 08/12/2024 (No Known Allergies) Date Reviewed: 08/11/2024 Reviewed by: Arie Akhtar MD - Fully Assessed Reason for Visit: Population Health Navigation Outreach [3910] Cmt: Ob.ped Prescriptions as of 08/16/2024 - ferrous sulfate (IRON ORAL) Take by mouth. 2-3 times weekly- dosage unknown - PNV no.95/ferrous fum/folic ac ( ORAL) Take 1 tablet by mouth once daily. Problem List As Of Date 08/12/2024 Noted Resolved History of section [Z98.891] 08/04/2022 Supervision of other high risk pregnancies, thi*10/07/2022 12/09/2022 Late care affecting in third*10/07/2022 12/09/2022 Iron deficiency anemia [D50.9] 10/21/2022 06/16/2024 Encounter for supervision of normal first pregn*02/26/2024 Urinary tract infection in mother during pregna*06/02/2024 Encounter Status:Closed by SYLVIE CHAPACY on 08/12/24 [facility] 08-11-2024 Progress note Formatting of t his note might be different from the original. KJ - VB No. LOF No. CTXS No. Movement: present. Other c/o: No. Medication list reviewed. Physical Exam See Flow Sheet Gen: no accute distress, well appearing Abd: soft, nontender, gravid A/P 37w6d Estimated Date of Delivery: 08/26/24 MOD - repeat with tubal sterilization. Reviewed R/B/A and informed consent signed today. labor precautions reviewed, Kick counts reviewed. Arie Akhtar MD [facility] 08-11-2024 Miscellaneous Notes Formattin g of this note might be different from the original. KJ - VB No. LOF No. CTXS No. Movement: present. Other c/o: No. Medication list reviewed. Physical Exam See Flow Sheet Gen: no accute distress, well appearing Abd: soft, nontender, gravid A/P 37w6d Estimated Date of Delivery: 08/26/24 MOD - repeat with tubal sterilization. Reviewed R/B/A and informed consent signed today. labor precautions reviewed, Kick counts reviewed. Arie Akhtar MD documented in this encounter [facility] 08-11-2024 Instructions Joyce Lui MA - 08/11/2024 2:12 PM EDT SEQUENTIAL SCREENINGS The [facility] offers sequential screenings for women who are interested in screenings for chromosomal abnormalities and certain defects during a . The sequential screen combines ultrasound and blood tests to determine the risk of chromosomal abnormalities, including Down's Syndrome (Trisomy 21) and Trisomy 18, as well as open neural tube defects including spina bifida. Ultrasound examination is performed between 11 weeks and 13 weeks gestational age. Blood tests are drawn after the ultrasound and again later in the between 15 and 21 weeks gestational age. Please let your physician know if you are interested in this testing. It will require an appointment with our bakery technician. This is not an ultrasound performed by a physician in our office during a routine visit. SIGNS AND SYMPTOMS OF LABOR 1. Contractions every 10 minutes or more often 2. Clear, pink, or brownish fluid (water) leaking from vagina 3. Feeling that baby is pushing down, pressure 4. Low, dull backache 5. Cramps that feel like a period 6. Cramps with or without diarrhea If you notice any of the above symptoms, contact our office at [phone] and ask to speak with a nurse. After hours, you can call doctors registry at [phone] OR call [facility] at [phone] and ask to have the doctor stationary fireman paged. If you consider this an emergency, dial 7-7-4 or go to your nearest emergency department. NEED HELP? Are you dealing with a violent or abusive relationship? Are you a victim of rape or sexual assult? Call [facility] ([place]) 24 hour Crisis Hotline: 181.121.1672 or 141-043-4733. MANUAL Your Guide to a Healthy manual is now on-line. Visit [email or web address] to download your free copy documented in this encounter [facility] 08-09-2024 Telephone encount er Note Called and rescheduled patient's appointment. Myra Osei RN [facility] 08-09-2024 Miscellaneous Notes Formattin g of this note might be different from the original. Called and rescheduled patient's appointment. Myra Osei RN documented in this encounter [facility] 08-03-2024 Progress note Formatting of t his note might be different from the original. S: Anam Eugene is a 24 year old female who presents at 36.5 weeks gestation for a routine visit. Positive movement. Denies headache, visual changes, chest pain, shortness of breath, vaginal bleeding, leakage of fluid, or dysuria. Feeling well, no complaints. O: See flow sheet Gen: No apparent distress Abd: Gravid, nontender ASSESSMENT/PLAN: 1. 37 weeks gestation of - ICD9: V22.2, ICD10: Z3A.37 (primary diagnosis) 2. History of section - ICD9: V45.89, ICD10: Z98.891 3. Encounter for supervision of other normal in third trimester - ICD9: V22.1, ICD10: Z34.83 - MOD- planning for repeat section - GBS negative - PTL precautions and kick counts reviewed - RTO 1 week Diane Camargo APRN.CNM [facility] Work Phone: 08-03-2024 Miscellaneous Notes Formattin g of this note might be different from the original. S: Anam Eugene is a 24 year old female who presents at 36.5 weeks gestation for a routine visit. Positive movement. Denies headache, visual changes, chest pain, shortness of breath, vaginal bleeding, leakage of fluid, or dysuria. Feeling well, no complaints. O: See flow sheet Gen: No apparent distress Abd: Gravid, nontender ASSESSMENT/PLAN: 1. 37 weeks gestation of - ICD9: V22.2, ICD10: Z3A.37 (primary diagnosis) 2. History of section - ICD9: V45.89, ICD10: Z98.891 3. Encounter for supervision of other normal in third trimester - ICD9: V22.1, ICD10: Z34.83 - MOD- planning for repeat section - GBS negative - PTL precautions and kick counts reviewed - RTO 1 week Diane Camargo APRN.CNM documented in this encounter [facility] 08-03-2024 Instructions Lori Batres LPN - 08/03/2024 8:09 AM EDT SEQUENTIAL SCREENINGS The [facility] offers sequential screenings for women who are interested in screenings for chromosomal abnormalities and certain defects during a . The sequential screen combines ultrasound and blood tests to determine the risk of chromosomal abnormalities, including Down's Syndrome (Trisomy 21) and Trisomy 18, as well as open neural tube defects including spina bifida. Ultrasound examination is performed between 11 weeks and 13 weeks gestational age. Blood tests are drawn after the ultrasound and again later in the between 15 and 21 weeks gestational age. Please let your physician know if you are interested in this testing. It will require an appointment with our bakery technician. This is not an ultrasound performed by a physician in our office during a routine visit. SIGNS AND SYMPTOMS OF LABOR 1. Contractions every 10 minutes or more often 2. Clear, pink, or brownish fluid (water) leaking from vagina 3. Feeling that baby is pushing down, pressure 4. Low, dull backache 5. Cramps that feel like a period 6. Cramps with or without diarrhea If you notice any of the above symptoms, contact our office at [phone] and ask to speak with a nurse. After hours, you can call doctors registry at [phone] OR call [facility] at [phone] and ask to have the doctor stationary fireman paged. If you consider this an emergency, dial 6-6-1 or go to your nearest emergency department. NEED HELP? Are you dealing with a violent or abusive relationship? Are you a victim of rape or sexual assult? Call [facility] ([facility] 24 hour Crisis Hotline: 620.803.2534 or 143-971-9664. MANUAL Your Guide to a Healthy manual is now on-line. Visit [email or web address] to download your free copy documented in this encounter [facility] 07-27-2024 Progress note Formatting of t his note might be different from the original. DM-Pt doing well. Denies vaginal Bleeding, Leaking fluid, or regular Contractions. Pt reports good movement The sensitive examination was discussed with the Patient or Patient's Authorized Analytical Laboratory Technician. As applicable, any other physician, advance practice provider, medical student, or other health professional student that will be observing or involved in the sensitive examination for educational or training purposes was discussed with the Patient or Authorized Analytical Laboratory Technician. The Patient or Authorized Analytical Laboratory Technician has agreed to proceed with the sensitive examination. (Sensitive examination includes inspection and/or palpation of the breasts, pelvis, prostate and anorectal regions) Physical Exam: Gen: female in no apparent distress Abd: soft, Gravid. Non tender to palpation. See flow sheet @ 35.5 weeks Assessment & Plan Encounter for supervision of other normal in third trimester Orders: ROUTINE, GROUP B STREP PCR RSV VACCINE, BIVALENT (ABRYSVO) History of section Orders: RSV VACCINE, BIVALENT (ABRYSVO) 35 weeks gestation of Orders: URINE OB DIP B/O RSV VACCINE, BIVALENT (ABRYSVO) RTO weekly Kick counts Pt will get FLU VACCINE NEXT VISIT Tanika Aguilar MD [facility] 07-27-2024 Miscellaneous Notes Formattin g of this note might be different from the original. DM-Pt doing well. Denies vaginal Bleeding, Leaking fluid, or regular Contractions. Pt reports good movement The sensitive examination was discussed with the Patient or Patient's Authorized Analytical Laboratory Technician. As applicable, any other physician, advance practice provider, medical student, or other health professional student that will be observing or involved in the sensitive examination for educational or training purposes was discussed with the Patient or Authorized Analytical Laboratory Technician. The Patient or Authorized Analytical Laboratory Technician has agreed to proceed with the sensitive examination. (Sensitive examination includes inspection and/or palpation of the breasts, pelvis, prostate and anorectal regions) Physical Exam: Gen: female in no apparent distress Abd: soft, Gravid. Non tender to palpation. See flow sheet @ 35.5 weeks Assessment & Plan Encounter for supervision of other normal in third trimester Orders: ROUTINE, GROUP B STREP PCR RSV VACCINE, BIVALENT (ABRYSVO) History of section Orders: RSV VACCINE, BIVALENT (ABRYSVO) 35 weeks gestation of Orders: URINE OB DIP B/O RSV VACCINE, BIVALENT (ABRYSVO) RTO weekly Kick counts Pt will get FLU VACCINE NEXT VISIT Tanika Aguilar MD documented in this encounter [facility] 07-27-2024 Instructions Joyce Lui MA - 07/27/2024 8:55 AM EDT SEQUENTIAL SCREENINGS The [facility] offers sequential screenings for women who are interested in screenings for chromosomal abnormalities and certain defects during a . The sequential screen combines ultrasound and blood tests to determine the risk of chromosomal abnormalities, including Down's Syndrome (Trisomy 21) and Trisomy 18, as well as open neural tube defects including spina bifida. Ultrasound examination is performed between 11 weeks and 13 weeks gestational age. Blood tests are drawn after the ultrasound and again later in the between 15 and 21 weeks gestational age. Please let your physician know if you are interested in this testing. It will require an appointment with our bakery technician. This is not an ultrasound performed by a physician in our office during a routine visit. SIGNS AND SYMPTOMS OF LABOR 1. Contractions every 10 minutes or more often 2. Clear, pink, or brownish fluid (water) leaking from vagina 3. Feeling that baby is pushing down, pressure 4. Low, dull backache 5. Cramps that feel like a period 6. Cramps with or without diarrhea If you notice any of the above symptoms, contact our office at [phone] and ask to speak with a nurse. After hours, you can call doctors registry at [phone] OR call [facility] at [phone] and ask to have the doctor stationary fireman paged. If you consider this an emergency, dial 91-8 or go to your nearest emergency department. NEED HELP? Are you dealing with a violent or abusive relationship? Are you a victim of rape or sexual assult? Call [facility] ([place]) 24 hour Crisis Hotline: 447.388.8180 or 489-535-7596. MANUAL Your Guide to a Healthy manual is now on-line. Visit [email or web address] to download your free copy documented in this encounter [facility] 07-13-2024 Progress note Formatting of t his note might be different from the original. S: Anam Eugene is a 24 year old female who presents at 33 weeks gestation for a routine visit. Positive movement. Occasional lower pelvic cramps. Discussed increasing hydration. Denies headache, visual changes, chest pain, shortness of breath, vaginal bleeding, leakage of fluid, or dysuria. Feeling well, no complaints. O: See flow sheet Gen: No apparent distress Abd: Gravid, non tender ASSESSMENT/PLAN: 1. Encounter for supervision of other normal in third trimester - ICD9: V22.1, ICD10: Z34.83 (primary diagnosis) 2. 33 weeks gestation of - ICD9: V22.2, ICD10: Z3A.33 3. History of section - ICD9: V45.89, ICD10: Z98.891 - Reviewed 28 week labs with patient- concerned over hgb level - hx of iron transfusions - HGB normal range - MOD- Repeat C/S with bilateral tubal ligation - PTL precautions reviewed - RTO 2 weeks Diane Camargo APRN.CNM [facility] 07-13-2024 Miscellaneous Notes Formattin g of this note might be different from the original. S: Anam Eugene is a 24 year old female who presents at 33 weeks gestation for a routine visit. Positive movement. Occasional lower pelvic cramps. Discussed increasing hydration. Denies headache, visual changes, chest pain, shortness of breath, vaginal bleeding, leakage of fluid, or dysuria. Feeling well, no complaints. O: See flow sheet Gen: No apparent distress Abd: Gravid, non tender ASSESSMENT/PLAN: 1. Encounter for supervision of other normal in third trimester - ICD9: V22.1, ICD10: Z34.83 (primary diagnosis) 2. 33 weeks gestation of - ICD9: V22.2, ICD10: Z3A.33 3. History of section - ICD9: V45.89, ICD10: Z98.891 - Reviewed 28 week labs with patient- concerned over hgb level - hx of iron transfusions - HGB normal range - MOD- Repeat C/S with bilateral tubal ligation - PTL precautions reviewed - RTO 2 weeks Diane Camargo APRN.CNM documented in this encounter [facility] 07-13-2024 Instructions Santino Patel MA - 07/13/2024 9:30 AM EDT SEQUENTIAL SCREENINGS The [facility] offers sequential screenings for women who are interested in screenings for chromosomal abnormalities and certain defects during a . The sequential screen combines ultrasound and blood tests to determine the risk of chromosomal abnormalities, including Down's Syndrome (Trisomy 21) and Trisomy 18, as well as open neural tube defects including spina bifida. Ultrasound examination is performed between 11 weeks and 13 weeks gestational age. Blood tests are drawn after the ultrasound and again later in the between 15 and 21 weeks gestational age. Please let your physician know if you are interested in this testing. It will require an appointment with our bakery technician. This is not an ultrasound performed by a physician in our office during a routine visit. SIGNS AND SYMPTOMS OF LABOR 1. Contractions every 10 minutes or more often 2. Clear, pink, or brownish fluid (water) leaking from vagina 3. Feeling that baby is pushing down, pressure 4. Low, dull backache 5. Cramps that feel like a period 6. Cramps with or without diarrhea If you notice any of the above symptoms, contact our office at [phone] and ask to speak with a nurse. After hours, you can call doctors registry at [phone] OR call [facility] at [phone] and ask to have the doctor stationary fireman paged. If you consider this an emergency, dial [phone]- or go to your nearest emergency department. NEED HELP? Are you dealing with a violent or abusive relationship? Are you a victim of rape or sexual assult? Call [facility] ([place]) 24 hour Crisis Hotline: 602.665.3495 or 701-196-3434. MANUAL Your Guide to a Healthy manual is now on-line. Visit [email or web address] to download your free copy documented in this encounter [facility] 06-30-2024 Miscellaneous Notes Formattin g of this note might be different from the original. SW- pt doing well. No pain, ctx, AGUILERA, vb, lof. Good FM PE: Gen- NAD, well appearing Abd- Soft, gravid, NT See flowsheet A/p 31 wk gestation - Discussed round ligament pain and reasons to call - Repeat section - RTO 2 wks Flip Galvan DO documented in this encounter [facility] 06-30-2024 Progress note Formatting of t his note might be different from the original. SW- pt doing well. No pain, ctx, AGUILERA, vb, lof. Good FM PE: Gen- NAD, well appearing Abd- Soft, gravid, NT See flowsheet A/p 31 wk gestation - Discussed round ligament pain and reasons to call - Repeat section - RTO 2 wks Flip Galvan DO [facility] 06-30-2024 Instructions Vani Gutierres MA - 06/30/2024 8:13 AM EDT SEQUENTIAL SCREENINGS The [facility] offers sequential screenings for women who are interested in screenings for chromosomal abnormalities and certain defects during a . The sequential screen combines ultrasound and blood tests to determine the risk of chromosomal abnormalities, including Down's Syndrome (Trisomy 21) and Trisomy 18, as well as open neural tube defects including spina bifida. Ultrasound examination is performed between 11 weeks and 13 weeks gestational age. Blood tests are drawn after the ultrasound and again later in the between 15 and 21 weeks gestational age. Please let your physician know if you are interested in this testing. It will require an appointment with our bakery technician. This is not an ultrasound performed by a physician in our office during a routine visit. SIGNS AND SYMPTOMS OF LABOR 1. Contractions every 10 minutes or more often 2. Clear, pink, or brownish fluid (water) leaking from vagina 3. Feeling that baby is pushing down, pressure 4. Low, dull backache 5. Cramps that feel like a period 6. Cramps with or without diarrhea If you notice any of the above symptoms, contact our office at [phone] and ask to speak with a nurse. After hours, you can call doctors registry at [phone] OR call [facility] at [phone] and ask to have the doctor stationary fireman paged. If you consider this an emergency, dial 07-03-2 or go to your nearest emergency department. NEED HELP? Are you dealing with a violent or abusive relationship? Are you a victim of rape or sexual assult? Call [facility] ([place]) 24 hour Crisis Hotline: 863.578.6979 or 450-480-9004. MANUAL Your Guide to a Healthy manual is now on-line. Visit [email or web address] to download your free copy documented in this encounter [facility] 06-16-2024 Telephone encount er Note Surgery sheet completed Arie Akhtar MD [facility] Work Phone: 06-16-2024 Miscellaneous Notes Formattin g of this note might be different from the original. Surgery sheet completed Arie Akhtar MD JOSELYN 08/26. KJ stationary fireman on 08/23. 7:15 and Noon available that day. Surgery sheet to JOE to complete. Anai Lucero, RN Patient wanting to schedule c/s for 08/23 with bilateral salpingectomy. No preference in surgeon. Anai Brown APRN.HEEL CEMENTER documented in this encounter [facility] 06-16-2024 Telephone encount er Note JOSELYN 08/26. KJ stationary fireman on 08/23. 7:15 and Noon available that day. Surgery sheet to KJ to complete. Anai Lucero, RN [facility] 06-16-2024 Telephone encount er Note Patient wanting to schedule c/s for 08/23 with bilateral salpingectomy. No preference in surgeon. Anai Brown APRN.CNP [facility] 06-16-2024 Progress note Formatting of t his note might be different from the original. EH - S: Anam is a 23 year old female who presents at 29w6d for a routine visit. Feeling movement. Denies headache, visual changes, chest pain, shortness of breath, vaginal bleeding, leakage of fluid, or dysuria. Feeling well, no complaints. O: See flow sheet Gen: No apparent distress Abd: Gravid, nontender, S=D ASSESSMENT/PLAN: 1. Encounter for supervision of normal first in third trimester - ICD9: V22.0, ICD10: Z34.03 (primary diagnosis) - Growth reviewed, 52% EFW, 18 cm PEDRO - Wants to schedule c/s 2. 29 weeks gestation of - ICD9: V22.2, ICD10: Z3A.29 - 28 week labs WNL PTL precautions and kick counts reviewed. RTO in 2 weeks or sooner as needed. Anai Brown APRN.CNP [facility] 06-16-2024 Miscellaneous Notes Formattin g of this note might be different from the original. EH - S: Anam is a 23 year old female who presents at 29w6d for a routine visit. Feeling movement. Denies headache, visual changes, chest pain, shortness of breath, vaginal bleeding, leakage of fluid, or dysuria. Feeling well, no complaints. O: See flow sheet Gen: No apparent distress Abd: Gravid, nontender, S=D ASSESSMENT/PLAN: 1. Encounter for supervision of normal first in third trimester - ICD9: V22.0, ICD10: Z34.03 (primary diagnosis) - Growth reviewed, 52% EFW, 18 cm PEDRO - Wants to schedule c/s 2. 29 weeks gestation of - ICD9: V22.2, ICD10: Z3A.29 - 28 week labs WNL PTL precautions and kick counts reviewed. RTO in 2 weeks or sooner as needed. Anai Brown APRN.HEEL CEMENTER documented in this encounter [facility] 06-16-2024 Instructions Jenni Leyva LPN - 06/16/2024 9:09 AM EDT SEQUENTIAL SCREENINGS The [facility] offers sequential screenings for women who are interested in screenings for chromosomal abnormalities and certain defects during a . The sequential screen combines ultrasound and blood tests to determine the risk of chromosomal abnormalities, including Down's Syndrome (Trisomy 21) and Trisomy 18, as well as open neural tube defects including spina bifida. Ultrasound examination is performed between 11 weeks and 13 weeks gestational age. Blood tests are drawn after the ultrasound and again later in the between 15 and 21 weeks gestational age. Please let your physician know if you are interested in this testing. It will require an appointment with our bakery technician. This is not an ultrasound performed by a physician in our office during a routine visit. SIGNS AND SYMPTOMS OF LABOR 1. Contractions every 10 minutes or more often 2. Clear, pink, or brownish fluid (water) leaking from vagina 3. Feeling that baby is pushing down, pressure 4. Low, dull backache 5. Cramps that feel like a period 6. Cramps with or without diarrhea If you notice any of the above symptoms, contact our office at [phone] and ask to speak with a nurse. After hours, you can call [facility] at [phone] OR call [facility] at [phone] and ask to have the doctor stationary fireman paged. If you consider this an emergency, dial 9--0 or go to your nearest emergency department. NEED HELP? Are you dealing with a violent or abusive relationship? Are you a victim of rape or sexual assult? Call [facility] ([place]) 24 hour Crisis Hotline: 995.563.4114 or 726-712-1067. MANUAL Your Guide to a Healthy manual is now on-line. Visit [email or web address] to download your free copy documented in this encounter [facility] 06-03-2024 Telephone encount er Note 3rd risk assessment form submitted 06/03/24 Luis Miguel Johnson RN [facility] 06-03-2024 Miscellaneous Notes Formattin g of this note might be different from the original. 3rd risk assessment form submitted 06/03/24 Luis Miguel Johnson RN documented in this encounter [facility] 06-02-2024 Note Indication Evaluation of growth, Dated at anatomy scan Impression REMOTE READ - Single, live, intrauterine . - The biometry is consistent with the assigned gestational dating. - The EFW is 1195 g, at the 52%. AC is at the 85%. - The amniotic fluid volume is normal amount with an MVP of 6.1 cm and an PEDRO of 18 cm - The placenta is anterior. - No malformations visualized on a limited survey as detailed below. Recommendations Additional follow-up as clinically indicated. Maternal Assessment Height 155 cm Height (ft) 5 ft Height (in) 1 in Physical Exam Initial weight (lb) 148 lb Initial BMI 27.96 kg/m Method Transabdominal ultrasound examination Reynolds . Number of fetuses: 1 Dating GA by prior assessment 27 w + 6 d JOSELYN by prior assessment: 08/26/2024 Ultrasound examination on: 06/02/2024 GA by U/S based upon: AC, BPD, Femur, HC GA by U/S 28 w + 3 d JOSELYN by U/S: 08/22/2024 Assigned: based on ultrasound (AC, BPD, Femur, HC), selected on 03/29/2024 Assigned GA 27 w + 6 d Assigned JOSELYN: 08/26/2024 General Evaluation Cardiac activity present. FHR 133 bpm. movements: present. Presentation: transverse head left Placenta: Placental site: anterior Umbilical cord: Cord vessels: 3 vessel cord, normal insertion Amniotic fluid: Amount of AF: normal amount. MVP 6.1 cm. PEDRO 18.0 cm. Q1 4.3 cm, Q2 2.7 cm, Q3 5.0 cm, Q4 6.1 cm Growth Overview Exam date GA BPD (mm) HC (mm) AC (mm) FL (mm) HL (mm) EFW (g) 03/29/2024 18w 4d 40.6 39% 155.1 43% 142.4 79% 26.9 52% 27.2 58% 261 61% 06/02/2024 27w 6d 74 90% 266.2 65% 251.8 85% 47.9 11% 1195 52% Biometry Standard BPD 74.0 mm 29w 5d 90% Hadlock OFD 93.1 mm 27w 4d 54% Nicolaides HC 266.2 mm 28w 3d 65% Glenis AC 251.8 mm 29w 3d 85% Hadlock Femur 47.9 mm 26w 1d 11% Glenis EFW 1,195 g 27w 6d 52% Hadlock EFW (lb) 2 lb EFW (oz) 10 oz EFW by: Hadlock (HC-AC-FL) Extended Insurance Agents Supervisor 8.7 mm Extremities / Bony Struc FL / HC 0.18 Other Structures FHR 133 bpm Anatomy Lateral ventricles: normal Cavum septi pellucidi: normal Cerebellum: normal Cisterna magna: normal 4-chamber view: normal RVOT view: normal LVOT view: normal 3-vessel view: normal Heart / Thorax Situs: situs solitus (normal) Diaphragm: normal Stomach: normal Kidneys: normal Bladder: normal sex: male Wants to know sex: yes Maternal Structures Ovaries / Tubes / Adnexa Rt ovary: Visualized Rt ovary morphology: normal Lt ovary: Visualized Lt ovary morphology: normal Performed By: Belia Carlisle RDMS Read By: Suzanna Caro M.D. [facility] 06-02-2024 Progress note Formatting of t his note might be different from the original. EH - S: Anam is a 23 year old female who presents at 27w6d for a routine visit. Feeling movement. Denies headache, visual changes, chest pain, shortness of breath, vaginal bleeding, leakage of fluid, or dysuria. Feeling well, no complaints. O: See flow sheet Gen: No apparent distress Abd: Gravid, nontender, S=D ASSESSMENT/PLAN: Encounter for supervision of other normal in second trimester - ICD9: V22.1, ICD10: Z34.82 (primary diagnosis) - Growth today, report pending 27 weeks gestation of - ICD9: V22.2, ICD10: Z3A.27 - 1 hour GCT, CBC, and RPR today - Rh positive - TDAP today - LARC form reviewed and signed. Declines. - Title 19 signed. R/B/A reviewed, including risk of regret. Discussed irreversible, permanent procedure. nAam verbalizes understanding. - Depression screen negative Urinary tract infection in mother during , antepartum - ICD9: 646.63, 599.0, ICD10: O23.40 - Rescreen today History of section - ICD9: V45.89, ICD10: Z98.891 x2 PTL precautions and kick counts reviewed. RTO in 2 weeks or sooner as needed. Anai Brown APRN.HEEL CEMENTER [facility] 06-02-2024 Miscellaneous Notes Formattin g of this note might be different from the original. EH - S: Anam is a 23 year old female who presents at 27w6d for a routine visit. Feeling movement. Denies headache, visual changes, chest pain, shortness of breath, vaginal bleeding, leakage of fluid, or dysuria. Feeling well, no complaints. O: See flow sheet Gen: No apparent distress Abd: Gravid, nontender, S=D ASSESSMENT/PLAN: Encounter for supervision of other normal in second trimester - ICD9: V22.1, ICD10: Z34.82 (primary diagnosis) - Growth today, report pending 27 weeks gestation of - ICD9: V22.2, ICD10: Z3A.27 - 1 hour GCT, CBC, and RPR today - Rh positive - TDAP today - LARC form reviewed and signed. Declines. - Title 19 signed. R/B/A reviewed, including risk of regret. Discussed irreversible, permanent procedure. Brigittemeka verbalizes understanding. - Depression screen negative Urinary tract infection in mother during , antepartum - ICD9: 646.63, 599.0, ICD10: O23.40 - Rescreen today History of section - ICD9: V45.89, ICD10: Z98.891 x2 PTL precautions and kick counts reviewed. RTO in 2 weeks or sooner as needed. nAai Brown APRN.HEEL CEMENTER documented in this encounter [facility] 06-02-2024 Note HNO ID: [id number] Author: JENNI LEYVA LPN Service: ? Author Type: LICENSED NURSE Type: Progress Notes Filed: 06/02/2024 10:38 Note Text: Patient identified by name and date of . Anam Eugene presents today for a vaccination of Tdap. Patient denies an allergy to latex: yes Patient denies a severe (life-threatening) allergy to a previous dose of Tdap, DTP, DTaP, DT or Td vaccine. Yes Patient denies history of epilepsy or neurological problems: Yes Patient is afebrile and denies being moderately or severely ill: Yes Patient denies history of Guillain-Chauvin Syndrome (a severe paralytic illness): Yes Tdap Adacel injection was given without incident. See immunizations for details of immunizations administered today. VIS sheet provided: Yes Provider Anai Brown APRN, EBER was present in office at time of injection. Jenni Leyva LPN [facility] 06-02-2024 History of Presen t illness Narrative Patient identified by name and date of . Anam Eugene presents today for a vaccination of Tdap. Patient denies an allergy to latex: yes Patient denies a severe (life-threatening) allergy to a previous dose of Tdap, DTP, DTaP, DT or Td vaccine. Yes Patient denies history of epilepsy or neurological problems: Yes Patient is afebrile and denies being moderately or severely ill: Yes Patient denies history of Guillain-Chauvin Syndrome (a severe paralytic illness): Yes Tdap Adacel injection was given without incident. See immunizations for details of immunizations administered today. VIS sheet provided: Yes Provider Anai Brown APRN, CNP was present in office at time of injection. Jenni Leyva LPN documented in this encounter [facility] 06-02-2024 Instructions Jenni Leyva LPN - 06/02/2024 9:21 AM EDT SEQUENTIAL SCREENINGS The [facility] offers sequential screenings for women who are interested in screenings for chromosomal abnormalities and certain defects during a . The sequential screen combines ultrasound and blood tests to determine the risk of chromosomal abnormalities, including Down's Syndrome (Trisomy 21) and Trisomy 18, as well as open neural tube defects including spina bifida. Ultrasound examination is performed between 11 weeks and 13 weeks gestational age. Blood tests are drawn after the ultrasound and again later in the between 15 and 21 weeks gestational age. Please let your physician know if you are interested in this testing. It will require an appointment with our bakery technician. This is not an ultrasound performed by a physician in our office during a routine visit. SIGNS AND SYMPTOMS OF LABOR 1. Contractions every 10 minutes or more often 2. Clear, pink, or brownish fluid (water) leaking from vagina 3. Feeling that baby is pushing down, pressure 4. Low, dull backache 5. Cramps that feel like a period 6. Cramps with or without diarrhea If you notice any of the above symptoms, contact our office at [phone] and ask to speak with a nurse. After hours, you can call doctors registry at [phone] OR call [facility] at [phone] and ask to have the doctor stationary fireman paged. If you consider this an emergency, dial or go to your nearest emergency department. NEED HELP? Are you dealing with a violent or abusive relationship? Are you a victim of rape or sexual assult? Call [facility] ([place]) 24 hour Crisis Hotline: 831.186.6480 or 183-945-6327. MANUAL Your Guide to a Healthy manual is now on-line. Visit [email or web address] to download your free copy documented in this encounter [facility] 04-26-2024 Progress note Formatting of t his note might be different from the original. KJ - VB No. LOF No. CTXS No. Movement: present. Other c/o: No. Medication list reviewed. Physical Exam See Flow Sheet Gen: no accute distress, well appearing Abd: soft, nontender, gravid A/P 22w4d Estimated Date of Delivery: 08/26/24 Labs: 28 week labs ordered Follow up US for growth in 5 weeks MOD - schedule at next visit [facility] - needs to sign Title 19 papers Arie Akhtar MD [facility] 04-26-2024 Miscellaneous Notes Formattin g of this note might be different from the original. KJ - VB No. LOF No. CTXS No. Movement: present. Other c/o: No. Medication list reviewed. Physical Exam See Flow Sheet Gen: no accute distress, well appearing Abd: soft, nontender, gravid A/P 22w4d Estimated Date of Delivery: 08/26/24 Labs: 28 week labs ordered Follow up US for growth in 5 weeks MOD - schedule at next visit [facility] - needs to sign Title 19 papers Arie Akhtar MD documented in this encounter [facility] 04-26-2024 Instructions Vani Gutierres MA - 04/26/2024 2:28 PM EDT SEQUENTIAL SCREENINGS The [facility] offers sequential screenings for women who are interested in screenings for chromosomal abnormalities and certain defects during a . The sequential screen combines ultrasound and blood tests to determine the risk of chromosomal abnormalities, including Down's Syndrome (Trisomy 21) and Trisomy 18, as well as open neural tube defects including spina bifida. Ultrasound examination is performed between 11 weeks and 13 weeks gestational age. Blood tests are drawn after the ultrasound and again later in the between 15 and 21 weeks gestational age. Please let your physician know if you are interested in this testing. It will require an appointment with our bakery technician. This is not an ultrasound performed by a physician in our office during a routine visit. SIGNS AND SYMPTOMS OF LABOR 1. Contractions every 10 minutes or more often 2. Clear, pink, or brownish fluid (water) leaking from vagina 3. Feeling that baby is pushing down, pressure 4. Low, dull backache 5. Cramps that feel like a period 6. Cramps with or without diarrhea If you notice any of the above symptoms, contact our office at [phone] and ask to speak with a nurse. After hours, you can call doctors registry at [phone] OR call [facility] at [phone] and ask to have the doctor stationary fireman paged. If you consider this an emergency, dial 9-1- or go to your nearest emergency department. NEED HELP? Are you dealing with a violent or abusive relationship? Are you a victim of rape or sexual assult? Call [facility] ([place]) 24 hour Crisis Hotline: 460.663.4963 or 192-983-8596. MANUAL Your Guide to a Healthy manual is now on-line. Visit [email or web address] to download your free copy documented in this encounter [facility] 04-08-2024 Telephone encount er Note 2nd risk assessment form submitted 04/08/24 Luis Miguel Johnson RN [facility] 04-08-2024 Miscellaneous Notes Formattin g of this note might be different from the original. 2nd risk assessment form submitted 04/08/24 Luis Miguel Johnson RN documented in this encounter [facility] 04-07-2024 Telephone encount er Note FMLA paperwork completed, faxed to employer, scanned into EMR and filed in nurses station. Jenni Holman LPN [facility] 04-07-2024 Miscellaneous Notes Formattin g of this note might be different from the original. FMLA paperwork completed, faxed to employer, scanned into EMR and filed in nurses station. Jenni Holman LPN Intermittent FMLA paperwork completed and placed on providers desk for signature. Jenni Holman LPN documented in this encounter [facility] 03-30-2024 Telephone encount er Note 2nd attempt. Left message for patient to call office or check mychart message. Myra Osei RN [facility] 03-30-2024 Miscellaneous Notes Formattin g of this note might be different from the original. 2nd attempt. Left message for patient to call office or check mychart message. Myra Osei RN Images from the original note were not included. Left message for patient to call office or check mychart message. CHRISTINE Saleem Karmon, MD Giauque, Trisha, RN Please let patient know that her EDC is 08/26/24. It is changed based on today's US. Thanks! KJ documented in this encounter [facility] 03-29-2024 Telephone encount er Note Images from the original note were not included. Left message for patient to call office or check mychart message. CHRISTINE Saleem Karmon, MD Giauque, Trisha, RN Please let patient know that her EDC is 08/26/24. It is changed based on today's US. Thanks! JOE [facility] 03-29-2024 Progress note Formatting of t his note might be different from the original. KJ - VB No. LOF No. CTXS No. Movement: present. Other c/o: No. Medication list reviewed. Physical Exam See Flow Sheet Gen: no accute distress, well appearing A/P 20w2d Estimated Date of Delivery: 08/14/24 Anatomy US today changes EDC & is c/w reported outside US from care center MOD - repeat Arie Akhtar MD [facility] 03-29-2024 Miscellaneous Notes Formattin g of this note might be different from the original. KJ - VB No. LOF No. CTXS No. Movement: present. Other c/o: No. Medication list reviewed. Physical Exam See Flow Sheet Gen: no accute distress, well appearing A/P 20w2d Estimated Date of Delivery: 08/14/24 Anatomy US today changes EDC & is c/w reported outside US from care center MOD - repeat Arie Akhtar MD documented in this encounter [facility] 03-29-2024 Santino Wall MA - 03/29/2024 2:23 PM EDT SEQUENTIAL SCREENINGS The [facility] offers sequential screenings for women who are interested in screenings for chromosomal abnormalities and certain defects during a . The sequential screen combines ultrasound and blood tests to determine the risk of chromosomal abnormalities, including Down's Syndrome (Trisomy 21) and Trisomy 18, as well as open neural tube defects including spina bifida. Ultrasound examination is performed between 11 weeks and 13 weeks gestational age. Blood tests are drawn after the ultrasound and again later in the between 15 and 21 weeks gestational age. Please let your physician know if you are interested in this testing. It will require an appointment with our bakery technician. This is not an ultrasound performed by a physician in our office during a routine visit. SIGNS AND SYMPTOMS OF LABOR 1. Contractions every 10 minutes or more often 2. Clear, pink, or brownish fluid (water) leaking from vagina 3. Feeling that baby is pushing down, pressure 4. Low, dull backache 5. Cramps that feel like a period 6. Cramps with or without diarrhea If you notice any of the above symptoms, contact our office at [phone] and ask to speak with a nurse. After hours, you can call doctors registry at [phone] OR call [facility] at [phone] and ask to have the doctor stationary fireman paged. If you consider this an emergency, dial 9-1-3 or go to your nearest emergency department. NEED HELP? Are you dealing with a violent or abusive relationship? Are you a victim of rape or sexual assult? Call [facility] ([place]) 24 hour Crisis Hotline: 816.750.6101 or 018-684-4401. MANUAL Your Guide to a Healthy manual is now on-line. Visit [email or web address] to download your free copy documented in this encounter [facility] 03-29-2024 Telephone encount er Note FMLA completed, faxed to employer, scanned into EMR and filed in nurses station. Jenni Holman LPN' [facility] 03-29-2024 Miscellaneous Notes Formattin g of this note might be different from the original. FMLA completed, faxed to employer, scanned into EMR and filed in nurses station. Jenni Holman LPN' documented in this encounter [facility] 03-29-2024 Telephone encount er Note Intermittent FMLA paperwork completed and placed on providers desk for signature. Jenni Holman LPN [facility] 03-01-2024 Telephone encount er Note 1st risk assessment form submitted 03/01/2024. Shannon Dewitt RN [facility] 03-01-2024 Miscellaneous Notes Formattin g of this note might be different from the original. 1st risk assessment form submitted 03/01/2024. Shannon Dewitt RN documented in this encounter [facility] 03-01-2024 Progress note Formatting of t his note might be different from the original. S: Anam Eugene is doing well today, no complaints at this time. No movement yet. Has not had labs drawn. Picked up antibiotics today for UTI. Previous c/s x 2. Desires a tubal at the time of c/s this time. Has PNV. O: See OB Data A: IUP @ 16+2 P: Schedule u/s for anatomy at 18-20 wks EGA. Reviewed blood pressure and weight. Return to office in 4 weeks and PRN. Anai Moody MD [facility] 03-01-2024 Miscellaneous Notes Formattin g of this note might be different from the original. S: Anam Eugene is doing well today, no complaints at this time. No movement yet. Has not had labs drawn. Picked up antibiotics today for UTI. Previous c/s x 2. Desires a tubal at the time of c/s this time. Has PNV. O: See OB Data A: IUP @ 16+2 P: Schedule u/s for anatomy at 18-20 wks EGA. Reviewed blood pressure and weight. Return to office in 4 weeks and PRN. Anai Moody MD documented in this encounter [facility] 03-01-2024 Instructions Ashtyn Junior MA - 03/01/2024 1:01 PM EDT SEQUENTIAL SCREENINGS The [facility] offers sequential screenings for women who are interested in screenings for chromosomal abnormalities and certain defects during a . The sequential screen combines ultrasound and blood tests to determine the risk of chromosomal abnormalities, including Down's Syndrome (Trisomy 21) and Trisomy 18, as well as open neural tube defects including spina bifida. Ultrasound examination is performed between 11 weeks and 13 weeks gestational age. Blood tests are drawn after the ultrasound and again later in the between 15 and 21 weeks gestational age. Please let your physician know if you are interested in this testing. It will require an appointment with our bakery technician. This is not an ultrasound performed by a physician in our office during a routine visit. SIGNS AND SYMPTOMS OF LABOR 1. Contractions every 10 minutes or more often 2. Clear, pink, or brownish fluid (water) leaking from vagina 3. Feeling that baby is pushing down, pressure 4. Low, dull backache 5. Cramps that feel like a period 6. Cramps with or without diarrhea If you notice any of the above symptoms, contact our office at [phone] and ask to speak with a nurse. After hours, you can call doctors registry at [phone] OR call [facility] at [phone] and ask to have the doctor stationary fireman paged. If you consider this an emergency, dial [phone] or go to your nearest emergency department. NEED HELP? Are you dealing with a violent or abusive relationship? Are you a victim of rape or sexual assult? Call [facility] ([place]) 24 hour Crisis Hotline: 802.677.4504 or 387-168-3363. MANUAL Your Guide to a Healthy manual is now on-line. Visit [email or web address] to download your free copy documented in this encounter [facility] 02-29-2024 Telephone encount er Note Left message to call office. Isamar Burnett RN [facility] 02-29-2024 Miscellaneous Notes Formattin g of this note might be different from the original. Left message to call office. Isamar Burnett RN +UTI, Keflex sent. Arely Bryson APRN.CNP documented in this encounter [facility] 02-29-2024 Telephone encount er Note +UTI, Keflex sent. Arely Bryson APRN.CNP [facility] 02-26-2024 Note Addended by: ARELY BRYSON on: 02/26/2024 09:21 AM Modules accepted: Orders [facility] 02-26-2024 Miscellaneous Notes Addended by: ARELY BRYSON on: 02/26/2024 09:21 AM Modules accepted: Orders documented in this encounter [facility] 02-26-2024 Note HNO ID: [id number] Author: ARELY BRYSON APRN.CNP Service: ? Author Type: Nurse Practitioner Type: Progress Notes Filed: 02/26/2024 09:20 Note Text: INITIAL OB ASSESSMENT HPI: Anam is a 23 year old White here to establish Obstetrical Care. Patient's last menstrual period was 11/16/2023. from OB Dating Form. was unplanned but accepted Complaints: No OB History T2 L2 SAB0 IAB0 Ectopic0 Multiple0 Live Births2 Previous history: Prior : Yes History of 4th degree laceration: NO Perineal Laceration, 3rd or 4th degree NO Unanswered History of shoulder dystocia: NO Shoulder Dystocia Unanswered History of Hypertensive disorders including pre-eclampsia or gestational hypertension: NO Gestational Hypertension Unanswered Preeclampsia Unanswered History of gestational diabetes: NO Diabetes in NO Unanswered Patient's Risk Screening for delivery: Have you had a prior reynolds between 20w and 36w6d? No How many pregnancies have you had before? 2 Did you have a previous baby with a GBS Infection? No Please select all that apply for any prior : N/A MEDICAL/PSYCHOSOCIAL HISTORY: Severe bleeding with delivery NO Unanswered Thyroid Disease NO Unanswered Gestational Hypertension Unanswered Preeclampsia Unanswered Diabetes in PregnancyNO Unanswered No results found for: ABORHD No weight on file for this encounter. Last Pap: 08/11/2022 History of abnormal pap: None Abnormal Pap Unanswered Prior treatment for cervical dysplasia: none. History of STDs: Yes and Chlamydia Partner History of STDs: Yes and C Did you have a partner with Herpes? No Tobacco use: No E-Cigarette/Vaping Use: No Caffeine use: Yes Drug use: Yes Alcohol use: No Multivitamin with Folic acid: Yes Would refuse blood transfusion if medically necessary: No Social Needs: How often does this describe you? I don't have enough money to pay my bills: Never Within the past 12 months, have you worried that your food would run out before you had money to buy more? Never In the past 12 months, has lack of reliable transportation kept you from going to medical appointments or work, or from getting things needed for daily living? Never In the past 12 months, have you had any concerns about having a place to live, or about the condition or quality of your housing? Never Would you like more information on any of the following (please check all that apply)? Not interested Social History: Do you have any history of depression, anxiety, PTSD, or other mood problems? No Do you have a history of abuse or trauma that may impact your experience? No Are you currently employed? Yes Depression/Anxiety Screening: denies symptoms of depression. OB Depression and Anxiety Screening- This Encounter (since 02/25/2024) None Genetic Screening: Partner present: NO Patient verbalized knowledge of partner family health history: Yes Do you or your partner have any personal or family history of defects not previously discussed: No Do you have history of a complicated by anomaly, genetic condition, or demise: No OB Risk Screening: Completed, no positive findings documented. Marital Status: Partner: Name: Thomas Age: 25 Occupation: [employer] Gender: Male PAST MEDICAL HISTORY Diagnosis Date Chlamydia PAST SURGICAL HISTORY Procedure Laterality Date DELIVERY ONLY 12/02/2022 LTCS SECTION HX 10/11/2019 Current Outpatient Medications Medication Sig Dispense Refill Norethindrone, Contraceptive, (ORTHO MICRONOR) 0.35 mg tablet Take 1 tablet by mouth once daily. 28 tablet 3 ferrous sulfate (IRON ORAL) Take by mouth. PNV no.95/ferrous fum/folic ac ( ORAL) Take by mouth. No current facility-administered medications for this visit. Allergies As of Date: 02/26/2024 (No Known Allergies) Fully Assessed 01/20/2023 Does patient have penicillin allergy: No Pt was over 20 mins late for appt. Initial OB intake done, pt to reschedule OB visit. Anatomy scan and initial labs ordered. Arely Bryson APRN.[facility] 02-26-2024 History of Presen t illness Narrative INITIAL OB ASSESSMENT HPI: Anam is a 23 year old White here to establish Obstetrical Care. Patient's last menstrual period was 11/16/2023. from OB Dating Form. was unplanned but accepted Complaints: No OB History T2 L2 SAB0 IAB0 Ectopic0 Multiple0 Live Births2 Previous history: Prior : Yes History of 4th degree laceration: NO Perineal Laceration, 3rd or 4th degree NO Unanswered History of shoulder dystocia: NO Shoulder Dystocia Unanswered History of Hypertensive disorders including pre-eclampsia or gestational hypertension: NO Gestational Hypertension Unanswered Preeclampsia Unanswered History of gestational diabetes: NO Diabetes in NO Unanswered Patient's Risk Screening for delivery: Have you had a prior reynolds between 20w and 36w6d? No How many pregnancies have you had before? 2 Did you have a previous baby with a GBS Infection? No Please select all that apply for any prior : N/A MEDICAL/PSYCHOSOCIAL HISTORY: Severe bleeding with delivery NO Unanswered Thyroid Disease NO Unanswered Gestational Hypertension Unanswered Preeclampsia Unanswered Diabetes in PregnancyNO Unanswered No results found for: ABORHD No weight on file for this encounter. Last Pap: 08/11/2022 History of abnormal pap: None Abnormal Pap Unanswered Prior treatment for cervical dysplasia: none. History of STDs: Yes and Chlamydia Partner History of STDs: Yes and C Did you have a partner with Herpes? No Tobacco use: No E-Cigarette/Vaping Use: No Caffeine use: Yes Drug use: Yes Alcohol use: No Multivitamin with Folic acid: Yes Would refuse blood transfusion if medically necessary: No Social Needs: How often does this describe you? I don't have enough money to pay my bills: Never Within the past 12 months, have you worried that your food would run out before you had money to buy more? Never In the past 12 months, has lack of reliable transportation kept you from going to medical appointments or work, or from getting things needed for daily living? Never In the past 12 months, have you had any concerns about having a place to live, or about the condition or quality of your housing? Never Would you like more information on any of the following (please check all that apply)? Not interested Social History: Do you have any history of depression, anxiety, PTSD, or other mood problems? No Do you have a history of abuse or trauma that may impact your experience? No Are you currently employed? Yes Depression/Anxiety Screening: denies symptoms of depression. OB Depression and Anxiety Screening- This Encounter (since 02/25/2024) None Genetic Screening: Partner present: NO Patient verbalized knowledge of partner family health history: Yes Do you or your partner have any personal or family history of defects not previously discussed: No Do you have history of a complicated by anomaly, genetic condition, or demise: No OB Risk Screening: Completed, no positive findings documented. Marital Status: Partner: Name: Thomas Age: 25 Occupation: [employer] Gender: Male PAST MEDICAL HISTORY Diagnosis Date Chlamydia PAST SURGICAL HISTORY Procedure Laterality Date DELIVERY ONLY 12/02/2022 LTCS SECTION HX 10/11/2019 Current Outpatient Medications Medication Sig Dispense Refill Norethindrone, Contraceptive, (ORTHO MICRONOR) 0.35 mg tablet Take 1 tablet by mouth once daily. 28 tablet 3 ferrous sulfate (IRON ORAL) Take by mouth. PNV no.95/ferrous fum/folic ac ( ORAL) Take by mouth. No current facility-administered medications for this visit. Allergies As of Date: 02/26/2024 (No Known Allergies) Fully Assessed 01/20/2023 Does patient have penicillin allergy: No Pt was over 20 mins late for appt. Initial OB intake done, pt to reschedule OB visit. Anatomy scan and initial labs ordered. Arely Bryson APRN.HEEL CEMENTER documented in this encounter [facility] 02-26-2024 Instructions Laine Khan MA - 02/26/2024 8:47 AM EDT Please select the following link to access the [facility] Your Guide to a Healthy . [email or web address] Please select the following link to access the [facility] Your Guide to a Healthy . [email or web address] documented in this encounter [facility] 01-20-2023 History of Presen t illness Narrative VISIT Anam Eugene is a 22 year old year old here for visit. Delivery Summary: ROS/ Recovery: Feeding: Breast feeding problems: None Menses since delivery: stopped Menstrual pattern prior to : Regular periods Depression: denies symptoms of depression. OB Depression and Anxiety Screening- This Encounter (since 01/19/2023) None Emotional support: Yes Bowel symptoms: Negative for abdominal discomfort, blood in stools or black stools and change in bowel habits Abdomen: She reports no incisional redness, tenderness, erythema Bladder symptoms: No dysuria, gross hematuria, urinary frequency, urinary urgency, or incontinence Other issues: None Last Pap: 2021 normal HPV: N/A PAST MEDICAL HISTORY Diagnosis Date Chlamydia PAST SURGICAL HISTORY Procedure Laterality Date DELIVERY ONLY 12/02/2022 LTCS SECTION HX 10/11/2019 FAMILY HISTORY Adopted: Yes Problem Relation Age of Onset Autism Brother Autism Brother Social History Tobacco Use Smoking status: Never Smokeless tobacco: Never Vaping Use Vaping Use: Never used Substance Use Topics Alcohol use: Not Currently Drug use: Never PHYSICAL EXAMINATION: BP 104/62 Wt 145 lb (65.8kg) LMP 02/27/2022 GENERAL: pleasant, female in no apparent distress HEENT: Normocephalic, atraumatic, mucus membranes moist, and no lesions NECK: Supple, full range of motion, no adenopathy, and thyroid normal DERMATOLOGY: Normal, without lesions, non-icteric, and non-hirsute BREAST: soft, non-tender, symmetric, no dominant mass, normal nipple-areolar complex, no lymphadenopathy, and no nipple discharge CHEST: Normal inspiratory effort ABDOMEN: soft, non-tender, and no masses. INCISION: No incisional redness, swelling, or drainage PELVIC: external genitalia normal, normal Bartholin's glands, urethra, [place]'s glands, no vulvar lesions, no cervical lesions, good vaginal support, physiologic discharge present, normal appearing perineal body and perianal region BIMANUAL: uterus normal size, shape and consistency, no adnexal masses, and non-tender NEURO: alert and oriented x3,exam grossly non-focal EXTREMITIES: normal ASSESSMENT AND PLAN: 22 year old status post CS with normal course. Contraception plan: Oral contraceptives Follow up: RTC for annual exams and PRN Cyn Gan MD documented in this encounter [facility] 01-16-2023 Miscellaneous Notes Formattin g of this note might be different from the original. FMLA signed, copy filed in PEDIATRIC NURSE PRACTITIONER suite and original placed in [facility] nurses station to give to pt on 01/20/23 post appt. Jenni Holman LPN [facility] paperwork completed and placed on providers desk for signature. Jenni Holman LPN documented in this encounter [facility] 12-26-2022 Miscellaneous Notes Formattin g of this note might be different from the original. I think it looks fine. Keep it as clean and dry as possible. Follow up as scheduled. Call if further concerns. on 12/02 Please see pt's Mimeohart message and further advise.. Jenni Holman LPN documented in this encounter [facility] 12-16-2022 Miscellaneous Notes Formattin g of this note might be different from the original. Order signed and faxed. Myra Osei RN Breast pump order received from [facility]. To KJ to sign. Myra Osei RN documented in this encounter [facility] 12-09-2022 History of Presen t illness Narrative EARLY VISIT Anam Eugene is a 22 year old here for 1 week visit. Delivery Summary: c-s ROS: General: Denies any fever or chills Hypertension Screening: Headache? No. Visual Changes? No Epigastric Pain? No Increased Swelling? No Taking any BP medications at home? No If applicable, monitoring BP at home? (If Yes, include results) NA Mood: normal Depression: denies symptoms of depression. OB Depression and Anxiety Screening- This Encounter (since 12/08/2022) Over the past 2 weeks have you felt down, depressed, or hopeless? Negative Over the past two weeks, have you felt little interest or pleasure in doing things? Negative Feeling nervous, anxious or on edge 0-Not at all Not being able to stop or control worrying 0-Not al all Anxiety Pre-Screening Total (If >/= 3 additional questions will be reviewed) 0 Feeding: Breast feeding problems: None Bladder: No dysuria, gross hematuria, urinary frequency, urinary urgency, or incontinence Bowel symptoms: Negative for abdominal discomfort, blood in stools or black stools and change in bowel habits Abdomen: She reports no incisional redness, tenderness, erythema. Pain improving Bleeding: light flow Bottom and Perineum: No issues Sleep: no sleep concerns, feels rested Emotional support: Yes Exercise: N/A Other issues: None PHYSICAL EXAMINATION: BP 112/62 Wt 131 lb (59.4 kg) LMP 02/27/2022 (Exact Date) Yes General: pleasant,female in no apparent distress, A&O x 3. Skin warm and intact. Breast: Deferred Abdomen: soft, non-tender, and no masses /Incision: No incisional redness, swelling, or drainage Pelvic: Deferred Bimanual: Deferred ASSESSMENT AND PLAN: 22 year old status post CS with normal course. Contraception plan: Oral contraceptives . Reinforced 6-week pelvic rest. Encouraged condom usage should patient deviate. Education: resources provided - see MA/RN note Follow up: Return to Clinic for 6 week visit and as needed Medical Decision Making: Medical Decision Making Level: 1 - N/A Cyn Gan MD documented in this encounter [facility] 12-03-2022 History of Presen t illness Narrative Patient delivered via by Dr. Gan on 12/02/22 at [facility]. See OB history. Myra Osei RN documented in this encounter [facility] 11-28-2022 Miscellaneous Notes Formattin g of this note might be different from the original. RR- VB No. LOF No. CTXS No. Movement: present. Other c/o: some back pain Medication list reviewed. Physical Exam See Flow Sheet Abd: soft, nontender, gravid Ext: edema: Trace A/P 39w1d Estimated Date of Delivery: 12/04/22 plans repeat c/s kick counts . Cyn Gan M.D. documented in this encounter [facility] 11-28-2022 Instructions Ashtyn Junior Case - 11/28/2022 1:16 PM EST SEQUENTIAL SCREENINGS The [facility] offers sequential screenings for women who are interested in screenings for chromosomal abnormalities and certain defects during a . The sequential screen combines ultrasound and blood tests to determine the risk of chromosomal abnormalities, including Down's Syndrome (Trisomy 21) and Trisomy 18, as well as open neural tube defects including spina bifida. Ultrasound examination is performed between 11 weeks and 13 weeks gestational age. Blood tests are drawn after the ultrasound and again later in the between 15 and 21 weeks gestational age. Please let your physician know if you are interested in this testing. It will require an appointment with our bakery technician. This is not an ultrasound performed by a physician in our office during a routine visit. SIGNS AND SYMPTOMS OF LABOR 1. Contractions every 10 minutes or more often 2. Clear, pink, or brownish fluid (water) leaking from vagina 3. Feeling that baby is pushing down, pressure 4. Low, dull backache 5. Cramps that feel like a period 6. Cramps with or without diarrhea If you notice any of the above symptoms, contact our office at [phone] and ask to speak with a nurse. After hours, you can call doctors registry at [phone] OR call [facility] at [phone] and ask to have the doctor stationary fireman paged. If you consider this an emergency, dial [phone] or go to your nearest emergency department. NEED HELP? Are you dealing with a violent or abusive relationship? Are you a victim of rape or sexual assult? Call [facility] ([place]) 24 hour Crisis Hotline: 698.595.1584 or 832-409-5322. MANUAL Your Guide to a Healthy manual is now on-line. Visit [email or web address] to download your free copy documented in this encounter [facility] 11-28-2022 History and physical note Pre-Op History and Physical HPI: The patient is a 22 year old female presenting for pre-operative visit. She is scheduled for , for previous c/s on 12/09/22. Procedure discussed along with risks, benefits and complications. Other alternatives discussed for management. Consent form signed? Yes. PAST MEDICAL HISTORY Diagnosis Date Chlamydia PAST SURGICAL HISTORY Procedure Laterality Date SECTION HX 10/11/2019 Current Outpatient Medications Medication Sig Dispense Refill iron sucrose (VENOFER) 200 mg iron/10 mL soln injection Inject 10 mL intravenously as directed for 3 doses. 10 mL 2 ferrous sulfate (IRON ORAL) Take by mouth. PNV no.95/ferrous fum/folic ac ( ORAL) Take by mouth. Current Facility-Administered Medications Medication Dose Route Frequency Provider Last Rate Last Admin NaCl (PF) 0.9% 10-20 mL injection 10-20 mL INTRAVENOUS PRN Arie Akhtar MD ALLERGIES: Patient has no known allergies. PERSONAL HISTORY: Social History Tobacco Use Smoking status: Never Smokeless tobacco: Never Vaping Use Vaping Use: Never used Substance Use Topics Alcohol use: Not Currently Drug use: Never FAMILY HISTORY: FAMILY HISTORY Adopted: Yes Problem Relation Age of Onset Autism Brother Autism Brother REVIEW OF SYMPTOMS: GENERAL: denies fevers or chills ENDOCRINOLOGY: has not been on steroids Cardiology : denies palpitations or chest pain Respiratory: denies SOB or cough Hematology: denies history of prolonged bleeding or easy bruising or VTE Allergy: Denies history of personal or family history of allergy to anesthesia PHYSICAL EXAMINATION: VITALS: Blood pressure 106/62, pulse 100, resp. rate 16, weight 153 lb (69.4 kg), last menstrual period 02/27/2022, SpO2 99 %. GENERAL: The patient is well nourished, well hydrated in no acute distress. , The patient is oriented to time, place, and person. NECK: Supple. No lynphadenopathy, normal thyroid, no thyromegaly. LUNGS: Clear to auscultation bilaterally. no wheezes, rhonchi or rales HEART: Regular rate and rhythm, Normal heart sounds, and No murmurs or gallops abd- soft, nontender, gravid IMPRESSION: Estimated Date of Delivery: 12/04/22 w/ previous c/s PLAN: The risks/benefits/alternatives and personal involved for the planned were reviewed with the patient. Her questions were answered to her satisfaction and she desires to proceed. Consent was signed. I reviewed with her postop instructions and expectations. I have reviewed and updated past medical and surgical history, medications and allergies Cyn Gan M.D. documented in this encounter [facility] 11-25-2022 Miscellaneous Notes Formattin g of this note might be different from the original. FMLA forms completed, faxed to employer, scanned into EMR and filed in PEDIATRIC NURSE PRACTITIONER suite. Jenni Holman LPN Additional FMLA forms completed and placed on providers desk for signature. Jenni Holman LPN documented in this encounter [facility] 11-20-2022 Miscellaneous Notes Formattin g of this note might be different from the original. KJ - VB No. LOF No. CTXS No. Movement: present. Other c/o: No. Medication list reviewed. Physical Exam See Flow Sheet Gen: no accute distress, well appearing Abd: soft, nontender, gravid A/P 38w0d Estimated Date of Delivery: 12/04/22 Anemia - continue IV Fe & Regular PNV use MOD -repeat Labor precautions reviewed, Kick counts reviewed. Arie Akhtar MD documented in this encounter [facility] 11-20-2022 David Tavarez Ma - 11/20/2022 2:53 PM EST SEQUENTIAL SCREENINGS The [facility] [facility] offers sequential screenings for women who are interested in screenings for chromosomal abnormalities and certain defects during a . The sequential screen combines ultrasound and blood tests to determine the risk of chromosomal abnormalities, including Down's Syndrome (Trisomy 21) and Trisomy 18, as well as open neural tube defects including spina bifida. Ultrasound examination is performed between 11 weeks and 13 weeks gestational age. Blood tests are drawn after the ultrasound and again later in the between 15 and 21 weeks gestational age. Please let your physician know if you are interested in this testing. It will require an appointment with our bakery technician. This is not an ultrasound performed by a physician in our office during a routine visit. SIGNS AND SYMPTOMS OF LABOR 1. Contractions every 10 minutes or more often 2. Clear, pink, or brownish fluid (water) leaking from vagina 3. Feeling that baby is pushing down, pressure 4. Low, dull backache 5. Cramps that feel like a period 6. Cramps with or without diarrhea If you notice any of the above symptoms, contact our office at [phone] and ask to speak with a nurse. After hours, you can call doctors registry at [phone] OR call [facility] at [phone] and ask to have the doctor stationary fireman paged. If you consider this an emergency, dial 9-1-9 or go to your nearest emergency department. NEED HELP? Are you dealing with a violent or abusive relationship? Are you a victim of rape or sexual assult? Call [facility] ([place]) 24 hour Crisis Hotline: 923.665.9902 or 243-018-7550. MANUAL Your Guide to a Healthy manual is now on-line. Visit [email or web address] to download your free copy documented in this encounter [facility] 11-13-2022 Miscellaneous Notes Formattin g of this note might be different from the original. Anam Eugene is a 22 year old female who presents at 37w0d for a routine visit. Feeling good. Positive movement. Denies any cramps or contractions. Denies headache, visual changes, chest pain, shortness of breath, vaginal bleeding, leakage of fluid, or dysuria. Feeling well, no complaints. GBS negative. Labor precautions reviewed. RTC in 1 week or sooner if needed. Diane Camargo APRN.CNM documented in this encounter [facility] 11-13-2022 Instructions Santino Patel Cma - 11/13/2022 1:27 PM EST SEQUENTIAL SCREENINGS The [facility] offers sequential screenings for women who are interested in screenings for chromosomal abnormalities and certain defects during a . The sequential screen combines ultrasound and blood tests to determine the risk of chromosomal abnormalities, including Down's Syndrome (Trisomy 21) and Trisomy 18, as well as open neural tube defects including spina bifida. Ultrasound examination is performed between 11 weeks and 13 weeks gestational age. Blood tests are drawn after the ultrasound and again later in the between 15 and 21 weeks gestational age. Please let your physician know if you are interested in this testing. It will require an appointment with our bakery technician. This is not an ultrasound performed by a physician in our office during a routine visit. SIGNS AND SYMPTOMS OF LABOR 1. Contractions every 10 minutes or more often 2. Clear, pink, or brownish fluid (water) leaking from vagina 3. Feeling that baby is pushing down, pressure 4. Low, dull backache 5. Cramps that feel like a period 6. Cramps with or without diarrhea If you notice any of the above symptoms, contact our office at [phone] and ask to speak with a nurse. After hours, you can call doctors registry at [phone] OR call [facility] at [phone] and ask to have the doctor stationary fireman paged. If you consider this an emergency, dial 9-7-6 or go to your nearest emergency department. NEED HELP? Are you dealing with a violent or abusive relationship? Are you a victim of rape or sexual assult? Call [facility] ([facility] 24 hour Crisis Hotline: 395.982.1504 or 434-119-9461. MANUAL Your Guide to a Healthy manual is now on-line. Visit [email or web address] to download your free copy documented in this encounter [facility] 11-06-2022 Miscellaneous Notes Formattin g of this note might be different from the original. S: Anam Eugene is a 22 year old female who presents at 36 weeks gestation for a routine visit. Positive movement. Denies any cramps or contractions. Denies headache, visual changes, chest pain, shortness of breath, vaginal bleeding, leakage of fluid, or dysuria. Feeling well, no complaints. O: See flow sheet Gen: No apparent distress Abd: Gravid, nontender ASSESSMENT/PLAN: 1. 36 weeks gestation of - ICD9: V22.2, ICD10: Z3A.36 - URINE OB DIP B/O - ROUTINE, GROUP B STREP PCR - Repeat C/S scheduled for 12/02/22 P: 1) PTL precautions reviewed and when to call 2) RTO 1 week or sooner if needed Diane Camargo APRN.CNM documented in this encounter [facility] 11-06-2022 David Patel Cma - 11/06/2022 1:12 PM EST SEQUENTIAL SCREENINGS The [facility] offers sequential screenings for women who are interested in screenings for chromosomal abnormalities and certain defects during a . The sequential screen combines ultrasound and blood tests to determine the risk of chromosomal abnormalities, including Down's Syndrome (Trisomy 21) and Trisomy 18, as well as open neural tube defects including spina bifida. Ultrasound examination is performed between 11 weeks and 13 weeks gestational age. Blood tests are drawn after the ultrasound and again later in the between 15 and 21 weeks gestational age. Please let your physician know if you are interested in this testing. It will require an appointment with our bakery technician. This is not an ultrasound performed by a physician in our office during a routine visit. SIGNS AND SYMPTOMS OF LABOR 1. Contractions every 10 minutes or more often 2. Clear, pink, or brownish fluid (water) leaking from vagina 3. Feeling that baby is pushing down, pressure 4. Low, dull backache 5. Cramps that feel like a period 6. Cramps with or without diarrhea If you notice any of the above symptoms, contact our office at [phone] and ask to speak with a nurse. After hours, you can call doctors registry at [phone] OR call [facility] at [phone] and ask to have the doctor stationary fireman paged. If you consider this an emergency, dial 9-6-1 or go to your nearest emergency department. NEED HELP? Are you dealing with a violent or abusive relationship? Are you a victim of rape or sexual assult? Call [facility] ([place]) 24 hour Crisis Hotline: 897.480.4052 or 242-760-7641. MANUAL Your Guide to a Healthy manual is now on-line. Visit [email or web address] to download your free copy documented in this encounter [facility] 10-31-2022 Miscellaneous Notes Formattin g of this note might be different from the original. RR- VB No. LOF No. CTXS No. Movement: present. Other c/o: No. Medication list reviewed. Physical Exam See Flow Sheet Abd: soft, nontender, gravid Ext: edema: Trace A/P 35w1d Estimated Date of Delivery: 12/04/22 f/u in 1 -2 weeks or prn plans repeat c/s anemia- reviewed labs, cont. FE Cyn Gan M.D. documented in this encounter [facility] 10-31-2022 David Junior Ma - 10/31/2022 11:33 AM EST SEQUENTIAL SCREENINGS The [facility] offers sequential screenings for women who are interested in screenings for chromosomal abnormalities and certain defects during a . The sequential screen combines ultrasound and blood tests to determine the risk of chromosomal abnormalities, including Down's Syndrome (Trisomy 21) and Trisomy 18, as well as open neural tube defects including spina bifida. Ultrasound examination is performed between 11 weeks and 13 weeks gestational age. Blood tests are drawn after the ultrasound and again later in the between 15 and 21 weeks gestational age. Please let your physician know if you are interested in this testing. It will require an appointment with our bakery technician. This is not an ultrasound performed by a physician in our office during a routine visit. SIGNS AND SYMPTOMS OF LABOR 1. Contractions every 10 minutes or more often 2. Clear, pink, or brownish fluid (water) leaking from vagina 3. Feeling that baby is pushing down, pressure 4. Low, dull backache 5. Cramps that feel like a period 6. Cramps with or without diarrhea If you notice any of the above symptoms, contact our office at [phone] and ask to speak with a nurse. After hours, you can call doctors registry at [phone] OR call [facility] at [phone] and ask to have the doctor stationary fireman paged. If you consider this an emergency, dial 4-5-2 or go to your nearest emergency department. NEED HELP? Are you dealing with a violent or abusive relationship? Are you a victim of rape or sexual assult? Call [facility] ([place]) 24 hour Crisis Hotline: 947.902.5985 or 453-059-9025. MANUAL Your Guide to a Healthy manual is now on-line. Visit [email or web address] to download your free copy documented in this encounter [facility] 10-23-2022 Miscellaneous Notes Formattin g of this note might be different from the original. Pt to supply new forms to being her leave 11/02/22 Jenni Holman LPN documented in this encounter [facility] 10-20-2022 History of Presen t illness Narrative Patient referred to Blood Management for evaluation and treatment of pre-surgical anemia and/or iron deficiency. Non-surgical: anemia in Date of surgery: NA Medical/Surgical History: PAST MEDICAL HISTORY Diagnosis Date Chlamydia PAST SURGICAL HISTORY Procedure Laterality Date SECTION HX 10/11/2019 Other significant Medical/Surgical history: - None Current Outpatient Medications Medication Sig ferrous sulfate (IRON ORAL) Take by mouth. PNV no.95/ferrous fum/folic ac ( ORAL) Take by mouth. No current facility-administered medications for this visit. Current medications that may affect iron absorption and/or blood loss: - None Baseline laboratory values: WBC (k/uL) Date Value 10/16/2022 8.13 RBC (m/uL) Date Value 10/16/2022 3.87 (L) Hemoglobin (g/dL) Date Value 10/16/2022 10.9 (L) Hematocrit (%) Date Value 10/16/2022 33.7 (L) MCV (fL) Date Value 10/16/2022 87.1 MCH (pg) Date Value 10/16/2022 28.2 MCHC (g/dL) Date Value 10/16/2022 32.3 RDW-CV (%) Date Value 10/16/2022 14.3 Platelet Count (k/uL) Date Value 10/16/2022 189 MPV (fL) Date Value 10/16/2022 11.1 Iron Date Value Ref Range Status 10/16/2022 26 (L) 41 - 186 ug/dL Final TIBC Date Value Ref Range Status 10/16/2022 482 (H) 232 - 386 ug/dL Final Ferritin Date Value Ref Range Status 10/16/2022 8.5 (L) 14.7 - 205.1 ng/mL Final Transferrin Saturation Date Value Ref Range Status 10/16/2022 5.4 (L) 15.0 - 57.0 % Final Assess for the need to augment a patient s natural red blood cell production: - Blood transfusion avoidance - Iron depletion Recommendations according to Blood Management patient care guidelines: - Iron Sucrose 200 mg, IV infusion, dose(s) 3 Clinical information is sent to a provider for review and evaluation for treatment. documented in this encounter [facility] 10-17-2022 Miscellaneous Notes Formattin g of this note might be different from the original. RR- VB No. LOF No. CTXS No. Movement: present. Other c/o: tired Medication list reviewed. Physical Exam See Flow Sheet Abd: soft, nontender, gravid Ext: edema: Trace A/P 33w1d Estimated Date of Delivery: 12/04/22 f/u in 2-3 weeks or prn plans repeat c/s. Cyn Gan M.D. documented in this encounter [facility] 10-17-2022 Instructions Ashtyn Junior Ma - 10/17/2022 4:08 PM EST SEQUENTIAL SCREENINGS The [facility] offers sequential screenings for women who are interested in screenings for chromosomal abnormalities and certain defects during a . The sequential screen combines ultrasound and blood tests to determine the risk of chromosomal abnormalities, including Down's Syndrome (Trisomy 21) and Trisomy 18, as well as open neural tube defects including spina bifida. Ultrasound examination is performed between 11 weeks and 13 weeks gestational age. Blood tests are drawn after the ultrasound and again later in the between 15 and 21 weeks gestational age. Please let your physician know if you are interested in this testing. It will require an appointment with our bakery technician. This is not an ultrasound performed by a physician in our office during a routine visit. SIGNS AND SYMPTOMS OF LABOR 1. Contractions every 10 minutes or more often 2. Clear, pink, or brownish fluid (water) leaking from vagina 3. Feeling that baby is pushing down, pressure 4. Low, dull backache 5. Cramps that feel like a period 6. Cramps with or without diarrhea If you notice any of the above symptoms, contact our office at [phone] and ask to speak with a nurse. After hours, you can call doctors registry at [phone] OR call [facility] at [phone] and ask to have the doctor stationary fireman paged. If you consider this an emergency, dial 9-3-4 or go to your nearest emergency department. NEED HELP? Are you dealing with a violent or abusive relationship? Are you a victim of rape or sexual assult? Call [facility] ([facility] 24 hour Crisis Hotline: 535.299.1924 or 504-080-0303. MANUAL Your Guide to a Healthy manual is now on-line. Visit [email or web address] to download your free copy documented in this encounter [facility] 10-07-2022 History of Past i llness Narrative Problem Noted Date Resolved Date Supervision of other high risk pregnancies, thir d trimester 10/07/2022 12/09/2022 Late care affecting in third trimester 10/07/2022 12/09/2022 Overview: had visits at care center but didn't establish here for care until 22 weeks. History of section 08/04/202205/2023 Overview: 08/04/22 IOL around 40 weeks per patient, baby 7lb 7oz, failure to progress. Per pt she was 6 cm dilated for several hours. Discussed r/b TOLAC and section. She desires repeat section. SW documented as of this encounter (statuses as of 12/09/2022) [facility] History of Past illness Narrative* Problem Noted Date Resolved Date Supervision of other high risk pregnancies, thir d trimester 10/07/2022 12/09/2022 Late care affecting in third trimester 10/07/2022 12/09/2022 Overview: had visits at care center but didn't establish here for care until 22 weeks. History of section 08/04/202205/2023 Overview: 08/04/22 IOL around 40 weeks per patient, baby 7lb 7oz, failure to progress. Per pt she was 6 cm dilated for several hours. Discussed r/b TOLAC and section. She desires repeat section. SW documented as of this encounter (statuses as of 12/16/2022) [facility] History of Past illness Narrative* Problem Noted Date Resolved Date Supervision of other high risk pregnancies, thir d trimester 10/07/2022 12/09/2022 Late care affecting in third trimester 10/07/2022 12/09/2022 Overview: had visits at care center but didn't establish here for care until 22 weeks. History of section 08/04/202205/2023 Overview: 08/04/22 IOL around 40 weeks per patient, baby 7lb 7oz, failure to progress. Per pt she was 6 cm dilated for several hours. Discussed r/b TOLAC and section. She desires repeat section. SW documented as of this encounter (statuses as of 12/26/2022) [facility] History of Past illness Narrative* Problem Noted Date Resolved Date Supervision of other high risk pregnancies, thir d trimester 10/07/2022 12/09/2022 Late care affecting in third trimester 10/07/2022 12/09/2022 Overview: had visits at care center but didn't establish here for care until 22 weeks. History of section 08/04/202205/2023 Overview: 08/04/22 IOL around 40 weeks per patient, baby 7lb 7oz, failure to progress. Per pt she was 6 cm dilated for several hours. Discussed r/b TOLAC and section. She desires repeat section. SW documented as of this encounter (statuses as of 12/31/2022) [facility] History of Past illness Narrative* Problem Noted Date Resolved Date Supervision of other high risk pregnancies, thir d trimester 10/07/2022 12/09/2022 Late care affecting in third trimester 10/07/2022 12/09/2022 Overview: had visits at care center but didn't establish here for care until 22 weeks. History of section 08/04/202205/2023 Overview: 08/04/22 IOL around 40 weeks per patient, baby 7lb 7oz, failure to progress. Per pt she was 6 cm dilated for several hours. Discussed r/b TOLAC and section. She desires repeat section. SW documented as of this encounter (statuses as of 01/16/2023) [facility] History of Past illness Narrative* Problem Noted Date Resolved Date Supervision of other high risk pregnancies, thir d trimester 10/07/2022 12/09/2022 Late care affecting in third trimester 10/07/2022 12/09/2022 Overview: had visits at care center but didn't establish here for care until 22 weeks. History of section 08/04/202205/2023 Overview: 08/04/22 IOL around 40 weeks per patient, baby 7lb 7oz, failure to progress. Per pt she was 6 cm dilated for several hours. Discussed r/b TOLAC and section. She desires repeat section. SW documented as of this encounter (statuses as of 01/20/2023) [facility] Miscellaneous Notes* Quick Notes - Julius Valenzuela - 10/07/2022 11:00 AM EST She reports some low back pain, can be uncomfortable when laying but mostly manageable and has not tried tylenol or anything for relief. She denies VB, loss of fluids, discharge, headaches, blurry vision, peripheral edema. She knows she is anemic on most recent labs, has been taking the iron supplementation since she wastold to start, she thinks for about the past 3-4 weeks. Repeat lab orders are in for her to complete, she states she will get those later this week when she can. TEACHING PHYSICIAN NOTE OF PERSONAL INVOLVEMENT IN CARE: I have personally seen and examined the patient and performed the medical decision-making components. I have reviewed the medical student documentation and verified the findings in the note as written. Any additions or changes are noted in bold/italics. Signature: Cyn Gan Date: 10/07/2022 Time: 11:21 AM RR- VB No. LOF No. CTXS No. Movement: present. Other c/o: No. Medication list reviewed. Physical Exam See Flow Sheet Abd: soft, nontender, gravid Ext: edema: 1+ A/P 31w5d Estimated Date of Delivery: 12/04/22 Labs: anemia labs, taking PNV and Fe. D/ wher if cannot get anemia improved may consider iv Fe plans repeat c/s f/u in 2 weeks or prn wt loss- has been ill, is trying to gain wt.. Cyn Gan M.D. [facility] Instructions* Patient Instructions* Ashtyn Junior Ma - 10/07/2022 10:50 AM EST SEQUENTIAL SCREENINGS The [facility] offers sequential screenings for women who are interested in screenings for chromosomal abnormalities and certain defects during a . The sequential screen combinesultrasound and blood tests to determine the risk of chromosomal abnormalities, including Down's Syndrome (Trisomy 21) and Trisomy 18, as well as open neural tube defects including spina bifida. Ultrasound examination is performed between 11 weeks and 13 weeks gestational age. Blood tests are drawn after the ultrasound and again later in the between 15 and 21 weeks gestational age. Please let your physician know if you are interested in this testing. It will require an appointment withour bakery technician. This is not an ultrasound performed by a physician in our office during a routine visit. SIGNS AND SYMPTOMS OF LABOR 1. Contractions every 10 minutes or more often 2. Clear, pink, or brownish fluid (water) leaking from vagina 3. Feeling that baby is pushing down, pressure 4. Low, dull backache 5. Cramps that feel like a period 6. Cramps with or without diarrhea If you notice any of the above symptoms, contact our office at [phone] and ask to speak with anurse. After hours, you can call doctors registry at [phone] OR call [facility] at [phone] ask to have the doctor stationary fireman paged. If you consider this an emergency, dial 9-1-6 or go to your nearest emergency department. NEED HELP? Are you dealing with a violent or abusive relationship? Are you a victim of rape or sexual assult? Call [facility] ([facility] 24 hour Crisis Hotline: 108.874.8778 or 221-943-3774. MANUAL Your Guide to a Healthy manual is now on-line. Visit [email or web address] to download your free copy [facility] Miscellaneous Notes* Quick Notes - Cyn Gan MD - 09/19/2022 3:47 PM EST RR- VB No. LOF No. CTXS No. Movement: present. Other c/o: some heartburn Medication list reviewed. Physical Exam See Flow Sheet Abd: soft, nontender, gravid Ext: edema: Trace A/P 29w1d Estimated Date of Delivery: 12/04/22 Labs: 28 week labs tdap and flu vaccine next visit f/u in 2-3 wweeks plans repeat c/s . Cyn Gan M.D. [facility] Instructions* Patient Instructions* Vani Gutierres MA - 09/19/2022 3:27 PM EST SEQUENTIAL SCREENINGS The [facility] offers sequential screenings for women who are interested in screenings for chromosomal abnormalities and certain defects during a . The sequential screen combinesultrasound and blood tests to determine the risk of chromosomal abnormalities, including Down's Syndrome (Trisomy 21) and Trisomy 18, as well as open neural tube defects including spina bifida. Ultrasound examination is performed between 11 weeks and 13 weeks gestational age. Blood tests are drawn after the ultrasound and again later in the between 15 and 21 weeks gestational age. Please let your physician know if you are interested in this testing. It will require an appointment withour bakery technician. This is not an ultrasound performed by a physician in our office during a routine visit. SIGNS AND SYMPTOMS OF LABOR 1. Contractions every 10 minutes or more often 2. Clear, pink, or brownish fluid (water) leaking from vagina 3. Feeling that baby is pushing down, pressure 4. Low, dull backache 5. Cramps that feel like a period 6. Cramps with or without diarrhea If you notice any of the above symptoms, contact our office at [phone] and ask to speak with anurse. After hours, you can call [facility] at [phone] OR call [facility] at [phone] ask to have the doctor stationary fireman paged. If you consider this an emergency, dial 9-1-1 or go to your nearest emergency department. NEED HELP? Are you dealing with a violent or abusive relationship? Are you a victim of rape or sexual assult? Call [facility] ([place]) 24 hour Crisis Hotline: 521.826.3992 or 641-506-0776. MANUAL Your Guide to a Healthy manual is now on-line. Visit [email or web address] to download your free copy [facility] Miscellaneous Notes* Telephone Encounter - Isamar Burnett RN - 08/29/2022 4:25 PM EDT Leave certification paperwork filled out and signed by provider. Paperwork faxed to [facility] at [phone]. Copy sent to conner and vidhya in nurse triage area for patient to poultry picker at next appointment. Isamar Burnett RN [facility] Miscellaneous Notes* Quick Notes - Arie Akhtar MD - 08/29/2022 3:34 PM EDT KJ - VB No. LOF No. CTXS No. Movement: present. Other c/o: No. Medication list reviewed. Physical Exam See Flow Sheet Gen: no accute distress, well appearing Abd: soft, nontender, gravid A/P 26w1d Estimated Date of Delivery: 12/04/22 28wk labs ordered Anemia - encouraged Fe & Regular PNV use FM & PTL precautions reviewed Patient has paperwork that needs completed MOD - plans for repeat Arie Akhtar MD [facility] Instructions* Patient Instructions* Erica Tavarez Ma - 08/29/2022 3:07 PM EDT SEQUENTIAL SCREENINGS [facility] offers sequential screenings for women who are interested in screenings for chromosomal abnormalities and certain defects during a . The sequential screen combinesultrasound and blood tests to determine the risk of chromosomal abnormalities, including Down's Syndrome (Trisomy 21) and Trisomy 18, as well as open neural tube defects including spina bifida. Ultrasound examination is performed between 11 weeks and 13 weeks gestational age. Blood tests are drawn after the ultrasound and again later in the between 15 and 21 weeks gestational age. Please let your physician know if you are interested in this testing. It will require an appointment withour bakery technician. This is not an ultrasound performed by a physician in our office during a routine visit. SIGNS AND SYMPTOMS OF LABOR 1. Contractions every 10 minutes or more often 2. Clear, pink, or brownish fluid (water) leaking from vagina 3. Feeling that baby is pushing down, pressure 4. Low, dull backache 5. Cramps that feel like a period 6. Cramps with or without diarrhea If you notice any of the above symptoms, contact our office at [phone] and ask to speak with anurse. After hours, you can call doctors registry at [phone] OR call [facility] at [phone] ask to have the doctor stationary fireman paged. If you consider this an emergency, dial 8-3-5 or go to your nearest emergency department. NEED HELP? Are you dealing with a violent or abusive relationship? Are you a victim of rape or sexual assult? Call [facility] ([place]) 24 hour Crisis Hotline: 456.796.5731 or 404-716-1333. MANUAL Your Guide to a Healthy manual is now on-line. Visit [email or web address] to download your free copy documented in this encounter[facility] History of Present illness Narrative* Flip Galvan MD - 08/04/2022 3:13 PM EDT INITIAL OB ASSESSMENT OB Provider: Ashtyn Junior Ma HPI: Anam Eugene is a 22 year old female here to establish Obstetrical Care. Patient's last menstrual period was 02/27/2022 (exact date). from OB Dating Form. Cycle length: regular She reports having 3 ultrasounds at the care center: 7, 8, and 10 weeks Complaints: None was unplanned but accepted. OB History T1 L1 SAB0 IAB0 Ectopic0 Multiple0 Live Births1 Prior : yes x 1 History of 4th degree laceration: No Patient's Risk Screening for delivery: Have you had a prior reynolds between 20w and 36w6d?: No History of abnormal pap: No Prior treatment for cervical dysplasia: none. History of STDs: chlamydia Tobacco use: No Caffeine use: No Drug use: No Alcohol use: No Multivitamin with Folic acid: Yes Occupation: [employer] Taoist or heritage: No Would refuse blood transfusion if medically necessary: No There is no height on file. Patient BMI over 30? No Marital Status: Partner: Name: Thomas Age: 24 Occupation: [employer] Gender: male History of STDs: chlamydia PAST MEDICAL HISTORY Diagnosis Date Chlamydia PAST SURGICAL HISTORY Procedure Laterality Date SECTION HX 10/11/2019 Current Outpatient Medications on File Prior to Visit Medication Sig PNV no.95/ferrous fum/folic ac ( ORAL) Take by mouth. No current facility-administered medications on file prior to visit. Review of Systems: GENERAL: Negative for: Fever or Chills HEENT: Negative for: Headache, Impaired Vision, Ringing in Ears, Nosebleeds NECK: Negative for: Swelling, Pain, Stiffness RESPIRATORY: Negative for: Cough, Shortness of breath, Wheezing GASTROINTESTINAL: Negative for: Heartburn, Constipation, Diarrhea, Blood in stool, Vomiting MUSCULOSKELETAL: Negative for: Muscle or joint pain, stiffness, Joint swelling NEUROLOGIC/PSYCHIATRIC: Negative for: Weakness, Paralysis, Numbness, Tingling, Tremor, Anxiety, Depression, Memory loss SKIN: Negative for: Rash, Itching GENITOURINARY: Negative for: vaginal itching, vaginal discharge, hematuria or dysuria PHYSICAL EXAM: Wt 136 lb (61.7kg) LMP 02/27/2022 GENERAL: pleasant female in no apparent distress DERMATOLOGY: Normal, without lesions, non-icteric, and non-hirsute NECK: Supple, full range of motion, no adenopathy, and thyroid normal CHEST: Normal inspiratory effort BREAST: soft, non-tender, symmetric, no dominant mass, normal nipple-areolar complex, no lymphadenopathy, and no nipple discharge ABDOMEN: soft, non-tender, and no masses NEURO: exam grossly non-focal PELVIS: External genitalia normal without lesions. Perineal body intact. No vaginal or cervical lesions. Cervix closed. Uterus 22 week size. No adnexal masses or tenderness. Clinical Pelvimetry: Pelvimetry clinically assessed as adequate Limited OB ultrasound exam: +FHT on doppler OB Risk Screening: Completed, no positive findings documented. ASSESSMENT: 22 year old at 22 wks gestational age PLAN: 1) Patient oriented to practice. Discussed nutrition, folic acid supplementation, dietary guidelines, exercise, smoking, alcohol, caffeine, and drug use. Discussed routine OB labs including STD/HIV. Discussed aneuploidy screening options including serum screening and nuchal translucency. Declines aneuploidy and carrier screening. See problem list. Desires repeat section. Follow up in 4 weeks or sooner prn. Flip Galvan DO documented in [facility] encounter[facility]22 Instructions* Patient Instructions* Ashtyn Junior Ma - 08/04/2022 3:13 PM EDT Please select the following link to access the [facility] Your Guide to a Healthy . [email or web address] documented in this encounterEast [facility]09-29-[facility]22 Miscellaneous Notes* Telephone Encounter - Va Mason RN - 07/31/2022 11:49 AM EDT I did try to call her back. No answerI would prefer to see her over my lunch hour but can work her in at the end of the day. * Telephone Encounter - Vani Gutierres MA - 07/31/2022 9:43 AM EDT LM for patient to return call. If she calls back please ask if she can take a PNOB phone call today at 12:00. Vani Gutierres MA [facility] Diagnosis 22 weeks gestation of - Primary state, incidental Late care Insufficient care Encounter for supervision of other normal in second trimester History of section Other postprocedural status [facility]* Diagnosis History of section- Primary Other postprocedural status 26 weeks gestation of state, incidental [facility]* Diagnosis 29 weeks gestation of - Primary state, incidental Encounter for supervision of other normal in third trimester Maternal care due to low transverse uterine scar from previous delivery [facility]* Diagnosis 31 weeks gestation of - Primary state, incidental Encounter for supervision of other normal in third trimester Supervision of other high risk pregnancies, third trimester Late care affecting in third trimester [facility]* Diagnosis 33 weeks gestation of - Primary state, incidental Encounter for supervision of other normal in third trimester [facility]* Diagnosis Supervision of other high risk pregnancies, third trimester- Primary 25 weeks gestation of state, incidental Antepartum anemia complicating in third trimester documented [facility]* Diagnosis 36 weeks gestation of - Primary state, incidental [facility]* Diagnosis 37 weeks gestation of - Primary state, incidental History of section Other postprocedural status [facility] this [facility]* Diagnosis Iron deficiency anemia, unspecified iron deficiency anemia type- Primary documented [facility] encounter [facility]* Diagnosis Supervision of other high risk pregnancies, third trimester- Primary 38 weeks gestation of state, incidental documented [facility]* Diagnosis Iron deficiency anemia, unspecified iron deficiency anemia type- Primary documented [facility]* Diagnosis Supervision of other high risk pregnancies, third trimester- Primary Iron deficiency anemia, unspecified iron deficiency anemia type [facility]* Diagnosis 39 weeks gestation of - Primary state, incidental Supervision of other high risk pregnancies, third trimester [facility]* Diagnosis Status post section routine follow-up- Primary Routine follow-up documented [facility] encounter [facility]* Diagnosis care and examination- Primary Routine follow-up documented [facility] this encounter [facility]* Diagnosis Uncertain dates, antepartum, first trimester- Primary 15 weeks gestation of state, incidental Encounter for supervision of normal first in second trimester Supervision of normal first [facility]* Diagnosis Encounter for supervision of other normal in second trimester- Primary Previous section Other postprocedural status documented [facility]* Diagnosis Encounter for supervision of other normal in second trimester- Primary 20 weeks gestation of state, incidental Previous section Other postprocedural status documented [facility] this encounter [facility]* Diagnosis Encounter for anatomic survey- Primary 18 weeks gestation of state, incidental documented [facility]* Diagnosis 22 weeks gestation of - Primary state, incidental [facility] Diagnosis 22 weeks gestation of - Primary state, incidental Encounter for supervision of other normal in second trimester documented [facility] encounter [facility]* Diagnosis Encounter for supervision of other normal in second trimester- Primary 27 weeks gestation of state, incidental Need for vaccination Need for prophylactic vaccination and inoculation against unspecified single disease Screening for depression Urinary tract infection in mother during , antepartum History of section Other postprocedural status documented [facility] this encounter [facility]* Diagnosis Encounter for ultrasound to check growth- Primary Encounter for routine screening for malformation using ultrasonics Suspected problem with growth not found 27 weeks gestation of state, incidental documented [facility]* Diagnosis Encounter for supervision of normal first in third trimester- Primary Supervision of normal first 29 weeks gestation of state, incidental Encounter for supervision of normal first in second trimester Supervision of normal first documented [facility]* Diagnosis Encounter for supervision of normal first in third trimester- Primary Supervision of normal first 31 weeks gestation of state, incidental History of section Other postprocedural status documented [facility]* Diagnosis Encounter for supervision of other normal in third trimester- Primary 33 weeks gestation of state, incidental History of section Other postprocedural status documented in this encounter [facility] note* Diagnosis Encounter for supervision of other normal in third trimester- Primary History of section Other postprocedural status 35 weeks gestation of state, incidental * Assessment & Plan Note - Tanika Sales MD - 07/27/2024 9:43 AM EDT Associated Problem(s): History of section Orders: RSV VACCINE, BIVALENT (ABRYSVO) documented in this encounter [facility] note* Diagnosis Encounter for supervision of other normal in third trimester- Primary History of section Other postprocedural status 35 weeks gestation of state, incidental 37 weeks gestation of - Primary state, incidental History of section Other postprocedural status Encounter for supervision of other normal in third trimester documented in this encounter [facility] note* Diagnosis Encounter for supervision of other normal in third trimester- Primary History of section Other postprocedural status 35 weeks gestation of state, incidental Encounter for supervision of other normal in third trimester- Primary 37 weeks gestation of state, incidental History of section Other postprocedural status documented in this encounter [facility] note* Diagnosis Encounter for supervision of other normal in third trimester- Primary History of section Other postprocedural status 35 weeks gestation of state, incidental History of section- Primary Other postprocedural status Encounter for supervision of other normal in third trimester 38 weeks gestation of state, incidental documented in this encounter [facility] for referral (narrative)* Diagnostic Procedure Only (Routine) - Pending Review Specialty Diagnoses / Procedures Referred By Franklin hagen Referred To Contact [facility] Diagnoses 22 weeks gestation of Procedures OBSTETRIC ULTRASOUND WHI US PREG UTERUS AFTER 1ST TRIMEST GESTATION Flip Galvan MD [address] [place] [address] [facility] [address] [place] [address] Referral ID Status Reason Start Date Expiration Date Visits Requested Visits Authorized [id number] Pending Review Auto-Generat ed Referral 08/04/2022 08/04/2023 1 1 [facility] for referral (narrative)* Diagnostic Procedure Only (Routine) - Pending Review Specialty Diagnoses / Procedures Referred By Contac t Referred To Contact [facility] Diagnoses 15 weeks gestation of Procedures OBSTETRIC ULTRASOUND WHI US PREG UTERUS AFTER 1ST TRIMEST GESTATION Arely Bryson APRN.CNP [address] [place] [address] [facility] [address] [place] [address] Referral ID Status Reason Start Date Expiration Date Visits Requested Visits Authorized [id number] Pending Review Auto-Generat ed Referral 02/26/2024 02/25/2025 1 1 [facility] for referral (narrative)* Diagnostic Procedure Only (Routine) - Pending Review Specialty Diagnoses / Procedures Referred By Contac t Referred To Contact [facility] Diagnoses 22 weeks gestation of Encounter for supervision of other normal in second trimester Procedures OBSTETRIC ULTRASOUND WHI US PREG UTERUS AFTER 1ST TRIMEST GESTATION Arie Akhtar MD [address] [place] [address] [facility] [address] [place] [id number] Referral ID Status Reason Start Date Expiration Date Visits Requested Visits Authorized [id number] Pending Review Auto-Generat ed Referral 04/26/2024 04/26/2025 1 1 [facility] Concerns Problem Noted Date OB Reminders 08/04/2022 Problem Noted Date OB Reminders 08/04/2022 Problem Noted Date OB Reminders 08/04/2022 Problem Noted Date OB Reminders 08/04/2022 Problem Noted Date OB Reminders 08/04/2022 Problem Noted Date OB Reminders 08/04/2022 Problem Noted Date OB Reminders 08/04/2022 Problem Noted Date OB Reminders 08/04/2022 Problem Noted Date OB Reminders 08/04/2022 Problem Noted Date OB Reminders 08/04/2022 Problem Noted Date OB Reminders 08/04/2022 Problem Noted Date OB Reminders 08/04/2022 Problem Noted Date OB Reminders 08/04/2022 Problem Noted Date OB Reminders 08/04/2022 Medications Administered Section Inactive Administered Medications - up to 3 most recent administrations Medication Order MAR Action Action Date Dose Rate Site iron sucrose 200 mg in NaCl 0.9% 100ml (VENOFER) 200 mg, INTRAVENOUS, at 400 mL/hr, Administer over 15 Minutes, ONCE, 1 dose, On Thu11/18/22 at 1400, Please conduct a 30 minute post dose observation. New Bag/Syringe/Bottle 11/18/2022 1:48 PM EST 200 mg 400 mL/hr Inactive Administered Medications - up to 3 most recent administrations Medication Order MAR Action Action Date Dose Rate Site iron sucrose 200 mg in NaCl 0.9% 100ml (VENOFER) 200 mg, INTRAVENOUS, at 400 mL/hr, Administer over 15 Minutes, ONCE, 1 dose, On Thu11/25/22 at 1600, Please conduct a 30 minute post dose observation. New Bag/Syringe/Bottle 11/25/2022 3:38 PM EST 200 mg 400 mL/hr Inactive Administered Medications - up to 3 most recent administrations Medication Order MAR Action Action Date Dose Rate Site iron sucrose 200 mg in NaCl 0.9% 100ml (VENOFER) 200 mg, INTRAVENOUS, at 400 mL/hr, Administer over 15 Minutes, ONCE, 1 dose, On Thu11/27/22 at 1330, Please conduct a 30 minute post dose observation. New Bag/Syringe/Bottle 11/27/2022 1:32 PM EST 200 mg 400 mL/hr Summary Purpose Family History No Family History Records Found Advance Directives No Advanced Directives Records Found Additional Source Comments Source Comments (unrecognize d section and content) In the event this informatio n is protected by the Federal Confidentiality of Alcohol and Drug Abuse Patient Records regulations: The Federal rules restrict any use of the information to criminally investigate or prosecute any alcohol or drug abuse patient.[facility] the event this information is protected by the Federal Confidentiality of Alcohol and Drug Abuse Patient Records regulations: The Federal rules restrict any use of the information to criminally investigate or prosecute any alcohol or drug abuse patient.[facility] HospitalIn the event this information is protected by the Federal Confidentiality of Alcohol and Drug Abuse Patient Records regulations: The Federal rules restrict any use of the information to criminally investigate or prosecute any alcohol or drug abuse patient.[facility] Hospital[facility] the event this information is protected by the Federal Confidentiality of Alcohol and Drug Abuse Patient Records regulations: The Federal rules restrict any use of the information to criminally investigate or prosecute any alcohol or drug abuse patient.[facility] Hospital[facility] the event this information is protected by the Federal Confidentiality of Alcohol and Drug Abuse Patient Records regulations: The Federal rules restrict any use of the information to criminally investigate or prosecute any alcohol or drug abuse patient.[facility] HospitalIn the event this information is protected by the Federal Confidentiality of Alcohol and Drug Abuse Patient Records regulations: The Federal rules restrict any use of the information to criminally investigate or prosecute any alcohol or drug abuse patient.[facility] Hospital[facility] the event this information is protected by the Federal Confidentiality of Alcohol and Drug Abuse Patient Records regulations: The Federal rules restrict any use of the information to criminally investigate or prosecute any alcohol or drug abuse patient.[facility] HospitalIn the event this information is protected by the Federal Confidentiality of Alcohol and Drug Abuse Patient Records regulations: The Federal rules restrict any use of the information to criminally investigate or prosecute any alcohol or drug abuse patient.[facility] Hospital[facility] the event this information is protected by the Federal Confidentiality of Alcohol and Drug Abuse Patient Records regulations: The Federal rules restrict any use of the information to criminally investigate or prosecute any alcohol or drug abuse patient.[facility] Hospital[facility] the event this information is protected by the Federal Confidentiality of Alcohol and Drug Abuse Patient Records regulations: The Federal rules restrict any use of the information to criminally investigate or prosecute any alcohol or drug abuse patient.[facility] Hospital[facility] the event this information is protected by the Federal Confidentiality of Alcohol and Drug Abuse Patient Records regulations: The Federal rules restrict any use of the information to criminally investigate or prosecute any alcohol or drug abuse patient.[facility] the event this information is protected by the Federal Confidentiality of Alcohol and Drug Abuse Patient Records regulations: The Federal rules restrict any use of the information to criminally investigate or prosecute any alcohol or drug abuse patient.[facility] HospitalIn the event this information is protected by the Federal Confidentiality of Alcohol and Drug Abuse Patient Records regulations: The Federal rules restrict any use of the information to criminally investigate or prosecute any alcohol or drug abuse patient.[facility] HospitalIn the event this information is protected by the Federal Confidentiality of Alcohol and Drug Abuse Patient Records regulations: The Federal rules restrict any use of the information to criminally investigate or prosecute any alcohol or drug abuse patient.[facility] the event this information is protected by the Federal Confidentiality of Alcohol and Drug Abuse Patient Records regulations: The Federal rules restrict any use of the information to criminally investigate or prosecute any alcohol or drug abuse patient.[facility] the event this information is protected by the Federal Confidentiality of Alcohol and Drug Abuse Patient Records regulations: The Federal rules restrict any use of the information to criminally investigate or prosecute any alcohol or drug abuse patient.[facility] HospitalIn the event this information is protected by the Federal Confidentiality of Alcohol and Drug Abuse Patient Records regulations: The Federal rules restrict any use of the information to criminally investigate or prosecute any alcohol or drug abuse patient.[facility] HospitalIn the event this information is protected by the Federal Confidentiality of Alcohol and Drug Abuse Patient Records regulations: The Federal rules restrict any use of the information to criminally investigate or prosecute any alcohol or drug abuse patient.[facility] HospitalIn the event this information is protected by the Federal Confidentiality of Alcohol and Drug Abuse Patient Records regulations: The Federal rules restrict any use of the information to criminally investigate or prosecute any alcohol or drug abuse patient.[facility]In the event this information is protected by the Federal Confidentiality of Alcohol and Drug Abuse Patient Records regulations: The Federal rules restrict any use of the information to criminally investigate or prosecute any alcohol or drug abuse patient.[facility] HospitalIn the event this information is protected by the Federal Confidentiality of Alcohol and Drug Abuse Patient Records regulations: The Federal rules restrict any use of the information to criminally investigate or prosecute any alcohol or drug abuse patient.[facility] HospitalIn the event this information is protected by the Federal Confidentiality of Alcohol and Drug Abuse Patient Records regulations: The Federal rules restrict any use of the information to criminally investigate or prosecute any alcohol or drug abuse patient.[facility] the event this information is protected by the Federal Confidentiality of Alcohol and Drug Abuse Patient Records regulations: The Federal rules restrict any use of the information to criminally investigate or prosecute any alcohol or drug abuse patient.[facility] HospitalIn the event this information is protected by the Federal Confidentiality of Alcohol and Drug Abuse Patient Records regulations: The Federal rules restrict any use of the information to criminally investigate or prosecute any alcohol or drug abuse patient.[facility]In the event this information is protected by the Federal Confidentiality of Alcohol and Drug Abuse Patient Records regulations: The Federal rules restrict any use of the information to criminally investigate or prosecute any alcohol or drug abuse patient.[facility] HospitalIn the event this information is protected by the Federal Confidentiality of Alcohol and Drug Abuse Patient Records regulations: The Federal rules restrict any use of the information to criminally investigate or prosecute any alcohol or drug abuse patient.[facility] HospitalIn the event this information is protected by the Federal Confidentiality of Alcohol and Drug Abuse Patient Records regulations: The Federal rules restrict any use of the information to criminally investigate or prosecute any alcohol or drug abuse patient.[facility] HospitalIn the event this information is protected by the Federal Confidentiality of Alcohol and Drug Abuse Patient Records regulations: The Federal rules restrict any use of the information to criminally investigate or prosecute any alcohol or drug abuse patient.[facility] HospitalIn the event this information is protected by the Federal Confidentiality of Alcohol and Drug Abuse Patient Records regulations: The Federal rules restrict any use of the information to criminally investigate or prosecute any alcohol or drug abuse patient.[facility]In the event this information is protected by the Federal Confidentiality of Alcohol and Drug Abuse Patient Records regulations: The Federal rules restrict any use of the information to criminally investigate or prosecute any alcohol or drug abuse patient.[facility] HospitalIn the event this information is protected by the Federal Confidentiality of Alcohol and Drug Abuse Patient Records regulations: The Federal rules restrict any use of the information to criminally investigate or prosecute any alcohol or drug abuse patient.[facility] HospitalIn the event this information is protected by the Federal Confidentiality of Alcohol and Drug Abuse Patient Records regulations: The Federal rules restrict any use of the information to criminally investigate or prosecute any alcohol or drug abuse patient.[facility] [place] [facility] HospitalIn the event this information is protected by the Federal Confidentiality of Alcohol and Drug Abuse Patient Records regulations: The Federal rules restrict any use of the information to criminally investigate or prosecute any alcohol or drug abuse patient.[facility] [place] [facility] HospitalIn the event this information is protected by the Federal Confidentiality of Alcohol and Drug Abuse Patient Records regulations: The Federal rules restrict any use of the information to criminally investigate or prosecute any alcohol or drug abuse patient.[facility] [place] [facility] HospitalIn the event this information is protected by the Federal Confidentiality of Alcohol and Drug Abuse Patient Records regulations: The Federal rules restrict any use of the information to criminally investigate or prosecute any alcohol or drug abuse patient.[facility] HospitalIn the event this information is protected by the Federal Confidentiality of Alcohol and Drug Abuse Patient Records regulations: The Federal rules restrict any use of the information to criminally investigate or prosecute any alcohol or drug abuse patient.[facility] HospitalIn the event this information is protected by the Federal Confidentiality of Alcohol and Drug Abuse Patient Records regulations: The Federal rules restrict any use of the information to criminally investigate or prosecute any alcohol or drug abuse patient.[facility] [place] [facility] HospitalIn the event this information is protected by the Federal Confidentiality of Alcohol and Drug Abuse Patient Records regulations: The Federal rules restrict any use of the information to criminally investigate or prosecute any alcohol or drug abuse patient.[facility] HospitalIn the event this information is protected by the Federal Confidentiality of Alcohol and Drug Abuse Patient Records regulations: The Federal rules restrict any use of the information to criminally investigate or prosecute any alcohol or drug abuse patient.[facility] HospitalIn the event this information is protected by the Federal Confidentiality of Alcohol and Drug Abuse Patient Records regulations: The Federal rules restrict any use of the information to criminally investigate or prosecute any alcohol or drug abuse patient.[facility] HospitalIn the event this information is protected by the Federal Confidentiality of Alcohol and Drug Abuse Patient Records regulations: The Federal rules restrict any use of the information to criminally investigate or prosecute any alcohol or drug abuse patient.[facility] HospitalIn the event this information is protected by the Federal Confidentiality of Alcohol and Drug Abuse Patient Records regulations: The Federal rules restrict any use of the information to criminally investigate or prosecute any alcohol or drug abuse patient.[facility] HospitalIn the event this information is protected by the Federal Confidentiality of Alcohol and Drug Abuse Patient Records regulations: The Federal rules restrict any use of the information to criminally investigate or prosecute any alcohol or drug abuse patient.[facility] [place] [facility] HospitalIn the event this information is protected by the Federal Confidentiality of Alcohol and Drug Abuse Patient Records regulations: The Federal rules restrict any use of the information to criminally investigate or prosecute any alcohol or drug abuse patient.[facility] HospitalIn the event this information is protected by the Federal Confidentiality of Alcohol and Drug Abuse Patient Records regulations: The Federal rules restrict any use of the information to criminally investigate or prosecute any alcohol or drug abuse patient.[facility] [place] [facility] HospitalIn the event this information is protected by the Federal Confidentiality of Alcohol and Drug Abuse Patient Records regulations: The Federal rules restrict any use of the information to criminally investigate or prosecute any alcohol or drug abuse patient.[facility] HospitalIn the event this information is protected by the Federal Confidentiality of Alcohol and Drug Abuse Patient Records regulations: The Federal rules restrict any use of the information to criminally investigate or prosecute any alcohol or drug abuse patient.[facility] HospitalIn the event this information is protected by the Federal Confidentiality of Alcohol and Drug Abuse Patient Records regulations: The Federal rules restrict any use of the information to criminally investigate or prosecute any alcohol or drug abuse patient.[facility] HospitalIn the event this information is protected by the Federal Confidentiality of Alcohol and Drug Abuse Patient Records regulations: The Federal rules restrict any use of the information to criminally investigate or prosecute any alcohol or drug abuse patient.[facility] HospitalIn the event this information is protected by the Federal Confidentiality of Alcohol and Drug Abuse Patient Records regulations: The Federal rules restrict any use of the information to criminally investigate or prosecute any alcohol or drug abuse patient.[facility] HospitalIn the event this information is protected by the Federal Confidentiality of Alcohol and Drug Abuse Patient Records regulations: The Federal rules restrict any use of the information to criminally investigate or prosecute any alcohol or drug abuse patient.[facility] HospitalIn the event this information is protected by the Federal Confidentiality of Alcohol and Drug Abuse Patient Records regulations: The Federal rules restrict any use of the information to criminally investigate or prosecute any alcohol or drug abuse patient.[facility] [place] [facility] HospitalIn the event this information is protected by the Federal Confidentiality of Alcohol and Drug Abuse Patient Records regulations: The Federal rules restrict any use of the information to criminally investigate or prosecute any alcohol or drug abuse patient.[facility] Reason for Visit (unrecogniz ed section and content) Reason Onset Date Comments Care 10/17/2022 Specialty Diagnoses / Procedures Referred By Contrachelle t Referred To Contact [facility] Diagnoses 19 wks Procedures new pateint Self [facility] [address] [place] [address] Referral ID Status Reason Start Date Expiration Date V isits Requested Visits Authorized [id number] Closed Financial Clearance Required - Self Pay Patient Cleared - Qualified 100% FAS 07/13/2022 10/11/2022 99 99 Reason Onset Date Comments Care 10/07/2022 Referral ID Status Reason Start Date Expiration Date Visits Requested Visits Authorized [id number] Authorized Financial Clearance Required - Self Pay Patient Cleared - Qualified 100% FAS 07/13/2022 10/11/2022 99 99 Reason Onset Date Comments Care 09/19/2022 Reason Comments Appointment Reason Comments Initial OB Visit Specialty Diagnoses / Procedures Referred By Contac t Referred To Contact [facility] Diagnoses 19 wks Procedures new pateint Self [facility] [address] [place] [address] Reason Onset Date Comments Care 08/29/2022 Reason Comments Forms Reason Comments Blood management Reason Onset Date Comments Care 10/31/2022 Reason Onset Date Comments Care 11/06/2022 Reason Onset Date Comments Care 11/13/2022 Reason Comments Non-Chemotherapy Treatment Specialty Diagnoses / Procedures Referred By Contac t Referred To Contact Diagnoses Iron deficiency anemia, unspecified iron deficiency anemia type Arie Akhtar MD [address] [place] [address] [facility] [address] [place] [address] Referral ID Status Reason Start Date Expiration Date V isits Requested Visits Authorized [id number] Authorized 10/21/2022 01/19/2023 99 99 Reason Onset Date Comments Care 11/20/2022 Reason Onset Date Comments Care 11/28/2022 Reason Comments Ob Delivery Note Reason Comments Early Reason Comments Breast Pump Specialty Diagnoses / Procedures Referred By Contac t Referred To Contact [facility] Diagnoses Post Procedures POST Self Cyn Gan MD [address] [place] [address] Referral ID Status Reason Start Date Expiration Date Visits Re quested Visits Authorized [id number] Closed 01/19/2023 11/01/2023 1 1 Reason Onset Date Comments Care 03/01/2024 Reason Comments Results Reason Comments PRAF Initial PRAF Reason Onset Date Comments Care 03/29/2024 Reason Comments US Specialty Diagnoses / Procedures Referred By Contac t Referred To Contact [facility] Diagnoses 15 weeks gestation of Procedures OBSTETRIC ULTRASOUND WHI US PREG UTERUS AFTER 1ST TRIMEST GESTATION Arely Bryson APRN.HEEL CEMENTER [address] [place] [address] [facility] [address] [place] [address] Referral ID Status Reason Start Date Expiration Date Visits Requested Visits Authorized [id number] Authorized Auto-Generat ed Referral 03/02/2024 11/01/2024 20 20 Reason Comments Follow Up Reason Comments FMLA Paperwork Reason Comments PRAF Reason Onset Date Comments Care 04/26/2024 Reason Onset Date Comments Care 06/02/2024 Specialty Diagnoses / Procedures Referred By Contrachelle t Referred To Contact [facility] Diagnoses 22 weeks gestation of Encounter for supervision of other normal in second trimester Procedures OBSTETRIC ULTRASOUND WHI US PREG UTERUS AFTER 1ST TRIMEST GESTATION Arie Akhtar MD [address] [place] [address] [facility] [address] [place] [address] Referral ID Status Reason Start Date Expiration Date Visits Requested Visits Authorized [id number] Authorized Auto-Generat ed Referral 04/27/2024 11/01/2024 20 20 Reason Onset Date Comments Care 06/16/2024 Reason Comments C/S Reason Onset Date Comments Care 06/30/2024 Reason Onset Date Comments Care 07/13/2024 Reason Onset Date Comments Care 07/27/2024 Reason Onset Date Comments Care 08/03/2024 Reason Onset Date Comments Care 08/11/2024 Reason Onset Date Comments Population Health Navigation Outreach 08/12/2024 Ob.ped Reason Onset Date Comments Care 08/17/2024 INFORMATION SOURCE (unrecogn ized section and content) DATE CREATED AUTHOR 08/25/2024 [facility] FOR RECORDS PERTAINING TO PATIENTS WHO ARE OR HAVE BEEN ENROLLED IN A CHEMICAL DEPENDENCY/SUBSTANCEABUSE PROGRAM, SOME INFORMATION MAY BE OMITTED. This clinical summary was aggregated from multiple sources. Caution should be exercised in using it in the provision of clinical care. This summary normalizes information from multiple sources, and as a consequence, information in this document may materially change the coding, format and clinical context of patient data. In addition, data may be omitted in some cases. CLINICAL DECISIONS SHOULD BE BASED ON THE PRIMARY CLINICAL RECORDS. [facility] [employer] [facility]. provides no warranty or guarantee of the accuracy or completeness of information in this document.
[2024-08-30 23:56] VITALS: BP 120/70; PULSE 54; RESP 18; TEMP 36.7; O2SAT 99
== END 2024-08-30 23:58 | disposition home or self-care (01) ==
LOC: ED 23:43
PROVIDERS: Emergency Provider Emergency Medicine; PCP Family Medicine; Visit Provider Emergency Medicine
DX: Z51.89 Encounter for other specified aftercare (principal)
CPT/HCPCS: 99282

== ENCOUNTER → 2024-09-01 | Outpatient (CLI) | payer MEDICAID, SELFPAY ==
--- NOTE | 2024-09-01 09:59 | RAD_ITS ---
CLINICAL HISTORY: Female, 24 years old. Bladder injury. PROCEDURE: Cystogram. CONSENT: Informed consent was obtained FLUOROSCOPY TIME (if supplied): (11 second) minutes/seconds. 8.6 mGy. 4 images were obtained. 200 mL of contrast installed into the bladder in a retrograde fashion through the indwelling Burger catheter. The radiologist installed the contrast into the bladder. TECHNIQUE: (All elements of maximal sterile barrier technique followed, including US elements as applicable) RAD/Cystography min 3 Views IMPRESSION: The bladder was opacified. No evidence of leakage. Electronically Signed: Roman Bo MD at 11:09 EDT ,
== END | disposition home or self-care (01) ==
LOC: RAD 09:56
PROVIDERS: PCP Family Medicine; Referring Provider Urology; Visit Provider Urology
DX: S37.20XA Unspecified injury of bladder, initial encounter (principal)
CPT/HCPCS: 51600; 74430